=== PATIENT | female | born 1980 | race Caucasian/White ===

== ENCOUNTER 2018-05-28 17:41 | Emergency (ER) | payer MEDICAID ==
[~2018-05-28] VITALS: Ht 165.1 cm; Wt 50.8 kg
[~2018-05-28 17:41] MED LIST: AMIT50TA3 PO; ASP325T PO; ASPI-266 PO; CARI350T PO; CLON1TAB3 PO; CLPD75T PO; CYCL10TA9 PO; DIVA500T PO; DULO20CA PO; FAMO20TA5 PO; LANS15CA3 PO; METO25TA PO; OXC10TCR PO; OXYC-309 PO; OXYC10TA7 PO; OXYC40TA49 PO; SIMV5TAB6 PO
--- OUTSIDE RECORDS SUMMARY | 2018-05-28 17:44 | XMS REPORT | Clinical Summary ---
Author Author [facility] Organization [facility] Address Unknown Phone Unavailable Care Team Providers Care Manager Sound Name Role Phone Rylee Jacome RN Unavailable Unavailable Tejal Mccracken MD Unavailable Crow Rojo MD Unavailable Tejal Mccracken MD PCP Rebeca Muller DO Unavailable Gladys Bautista DO Unavailable Reggie Mike MD Unavailable Duc Barger MD Unavailable Dasia Hurley DO Unavailable Tejal Mccracken MD 100 Source Comments Some departments are not documenting in the electronic medical record. If you do not see the information that you expected, contact Release of Information in the Health Information Management department at [phone] for further assistance in locating additional records.[facility] Allergies Comments Active Allergy Reactions Severity Noted Date Tramadol SEIZURES 12/26/2013 Acetaminophen RASH 10/25/2012 Medications End Date Status Medication Sig Dispensed Refills Start Date Active lansoprazole DR Take 1 Cap by 60 Cap 3 (PREVACID) 30 mg PO mouth twice 1 capsule daily. Active Aspirin 81 mg PO Tab Take 81 mg by 0 mouth daily. Active ACETAMINOPHEN/DIPHENHYDRA Take 1 tablet 0 MINE (TYLENOL PM PO) by mouth three times daily as needed. Active nitroglycerin (NITROSTAT) Take one 25 Tab 1 0.4 mg tabletIndications: tablet under 6 Prinzmetal angina (HCC) tongue as directed for chest pain. Active atorvastatin (LIPITOR) 40 Take 1 Tab by 90 Tab 1 mg tabletIndications: mouth daily. 6 Hyperlipidemia, unspecified hyperlipidemia type Active amLODIPine (NORVASC) 5 mg Take 1.5 Tabs 135 Tab 3 tablet by mouth 7 daily. Active tiZANidine (ZANAFLEX) 4 Take 1 tablet 90 tablet 3 mg tablet by mouth 7 three times daily as needed. Active prazosin (MINIPRESS) 2 mg Take 1 tab 30 capsule 0 capsule QHS for 8 nightmares, must make appointment for additional refills Active mirtazapine (REMERON) 15 1 tab QHS for 30 tablet 0 mg tablet sleep, must 8 make appointment for additional refills Active oxyCODONE (ROXICODONE, Take 1-2 30 tablet 0 OXY-IR) 5 mg tablet tablets by 8 mouth every 4 hours as needed for Pain Active duloxetine DR (CYMBALTA) TAKE 3 90 capsule 0 30 mg capsule CAPSULES BY 8 MOUTH DAILY Active pregabalin (LYRICA) 75 mg Take 1-2 120 capsule 5 capsule capsules by 8 mouth three times daily. Active methocarbamol (ROBAXIN) TAKE 1-2 540 tablet 4 750 mg tablet TABLETS BY 9 MOUTH THREE TIMES DAILY NEEDED FOR SPASMS Active Problems Problem Noted Date Elbow swelling 02/18/2016 Moderate episode of recurrent major depressive disorder 02/09/2016 Generalized anxiety disorder 02/09/2016 Irregular pigmentation of skin 06/07/2015 Essential hypertension 03/10/2015 Skin lesion 03/10/2015 Need for influenza vaccination 03/10/2015 Hx of bipolar disorder 01/01/2015 Overview: Type II PTSD (post-traumatic stress disorder) 01/01/2015 History of [place] (myocardial infarction) 11/25/2014 Overview: 2004 Fibromyalgia 04/15/2014 HTN (hypertension) 01/11/2011 Tobacco abuse 01/11/2011 CAD (coronary artery disease) 12/11/2010 Overview: A. 12/15/2004 LHC at [facility] EF 55%, LAD 90%, no obstructive disease in the Circ or RCA. B. 12/15/2004 s/p PCI and stent to LAD with 3.0 mm Taxus ADRIANE. C. 12/10/2010 LHC at [facility] when admitted with CP and mildly elevated troponin, EF 55%, LM nl, LAD with patent stent, D1 with 50% due to stent, Circ nl, RCA small and non-dominant and normal. D. 12/12/2013 Echo EF of 55 percent. Diastolic function was normal. RV size and function was normal. Valvular structures were all normal. Her peak pulmonary pressure was 23 mmHg. E. 12/12/2013 MPI EF of 65 percent. The perfusion pattern was normal. There was no evidence of ischemia. G. 12/27/2013 LHC at [facility] in [facility]. EF 60%, LM nl, LAD mid 30%, patent stent, Circumflex dominant and normal, RCA normal. Adjustment reaction 12/11/2010 Major depressive disorder, recurrent episode, in partial remission 2010 Anxiety 12/11/2010 Hyperlipidemia 12/11/2010 Overview: A. 12/11/2010 TC 90, TG 61, HDL 31, LDL 48. Resolved Problems Problem Noted Date Resolved Date Chest pain 01/11/2011 04/27/2017 Overview: A. 12/10/2010 minimally elevated troponin, [facility] without obstructive disease. B. 12/10/2010 CTA of chest no aneurysm or PE. Findings of airway disease. C. 12/10/2010 treated empirically with NSAID and PPI. Encounters Care Team Description Date Type Specialty Neo Tovra MD 04/13/2018 Refill Anesthesia Pain from Last 3 Months Immunizations Name Dates Previously Given Next Due Flu Vaccine 02/18/2016 Quadrivalent=>3 Yo (Preservative Free) Flu Vaccine Trivalent=>3 03/10/2015, 12/26/2013 Yo (Preservative Free) Family History Medical History Relation Name Comments Melanoma Father Cancer Mother Heart Disease Mother Hypertension Mother Relation Name Status Comments Father Mother Social History Date Tobacco Use Types Packs/Day Years Used Quit: 12/22/2013 Former Smoker Cigarettes 1 20 Smokeless Tobacco: Never Used Alcohol Use Drinks/Week oz/Week Comments No 0.0 Sex Assigned at Date Recorded Not on file Industry Job Start Date Occupation Not on file Not on file Not on file Travel End Travel History Travel Start No recent travel history available. Last Filed Vital Signs Time Taken Vital Sign Reading 08/30/2017 12:28 PM CDT Blood Pressure 139/90 08/30/2017 12:28 PM CDT Pulse 70 08/30/2017 12:28 PM CDT Temperature 36.9 C (98.4 F) 01/08/2017 8:28 AM CDT Respiratory Rate 16 08/30/2017 12:28 PM CDT Oxygen Saturation 98% - Inhaled Oxygen - Concentration 08/30/2017 12:28 PM CDT Weight 51.7 kg (114 lb) 08/30/2017 12:28 PM CDT Height 165.1 cm (5' 5") 08/30/2017 12:28 PM CDT Body Mass Index 18.97 Plan of Treatment Health Maintenance Due Date Last Done Comments HIV SCREENING 1993 DTAP/TDAP VACCINES ( - 1996 Tdap) PHYSICAL (COMPREHENSIVE) 02/17/2017 02/18/2016, 12/26/2013 (Previously EXAM completed) INFLUENZA VACCINE 11/07/2017 02/18/2016, 02/18/2016, 03/10/2015, Additional history exists Results Not on filefrom Last 3 Months Insurance Payer Benefit Subscriber ID Type Phone Address Plan / Group [facility] MEDICAID [facility] xxxxxxxxxxx Medicaid [employer] [place] [place] Advance Directives Patient has advance care planning documents, and code status on file. For more information, please contact: [facility] [address] [place] [address] Date Inactivated Comments Code Status Date Activated 04/27/2017 7:31 PM Full Code 04/25/2017 9:16 PM Provider has discussed Code Status Yes w/Patient or Family? 12/11/2010 4:33 PM Full Code 12/10/2010 6:16 AM Provider has discussed Code Status Yes w/Patient or Family?
--- OUTSIDE RECORDS SUMMARY | 2018-05-28 17:44 | XMS REPORT | Encounter Summary ---
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 Name Role Phone Rylee Jacome RN Unavailable Unavailable eTjal Mccracken MD Unavailable Crow Rojo MD Unavailable Tejal Mccracken MD PCP Rebeca Muller DO Unavailable Gladys Bautista DO Unavailable Reggie Mike MD Unavailable Duc Barger MD Unavailable Dasia Hurley DO Unavailable Tejal Mccracken MD 100 Reason for Visit * Reason Comments Medication Refill Encounter Details Care Team Description Date Type Department Neo Tovar MD [address] [place] [address] 04/13/2018 Refill [facility] [address] [employer], [place] [address] Social History Date Tobacco Use Types Packs/Day Years Used Quit: 12/22/2013 Former Smoker Cigarettes 1 20 Smokeless Tobacco: Never Used Alcohol Use Drinks/Week oz/Week Comments No 0.0 Sex Assigned at Date Recorded Not on file Industry Job Start Date Occupation Not on file Not on file Not on file Travel End Travel History Travel Start No recent travel history available. as of this encounter Functional Status Date of Assessment Functional Status Response 08/30/2017 Does the patient have a hearing impairment: No 08/30/2017 Does the patient have a visual impairment: No 08/30/2017 Does the patient have impaired ambulation: No 08/30/2017 Does the patient have an activity of daily living No (ADL) impairment: 08/30/2017 Does the patient have an instrumental activity of No daily living (IADL) impairment: Date of Assessment Cognitive Status Response 08/30/2017 Does the patient have a cognitive impairment: No as of this encounter Plan of Treatment Not on fileas of this encounter Visit Diagnoses Not on filein this encounter
--- OUTSIDE RECORDS SUMMARY | 2018-05-28 17:45 | XMS REPORT | Continuity of Care Document ---
Author Author [facility] Organization [facility] Address Unknown Phone Unavailable Allergies Active Description Code Type Severity Reaction Onset Reported/Identified Relationship to Patient Clinical Status Yes acetaminophen [id number] Drug Allergy Unknown N/A 12/26/2013 Yes tramadol [id number] Drug Allergy Severe SEIZURE 12/26/2013 Medications There is no data. Problems There is no data. Procedures There is no data. Results There is no data. Encounters ACCT No. Visit Date/Time Discharge Status Pt. Type Provider Facility Loc./Unit Complaint [id number] 12/26/2013 20:38:00 12/27/2013 18:36:00 DIS Outpatient [id number] 05/28/2018 17:42:00 ACT Emergency MONALISA CIFUENTES, JANNIE Shi [facility] ER GALLBLADDER PAIN [id number] 05/28/2018 11:00:00 [facility]
--- NOTE | 2018-05-28 19:18 | NUR ---
ASSUMED CARE OF PT @ THIS TIME. PT AMB TO ROOM #5 W/O DIFFICULTY. A&OX4. PT NOTED TO BE TEARFUL AND GARDING IN PAIN. REPORTS UPPER RT QUADRANT ABD PAIN WITH NAUSEA. REPORTS SYMPTOMS HAVE BEEN INTERMITTENTLY PRESENT FOR APPROX X3 WKS. REPORTS TO BE SENT BY PCP, DR. FLOREZ, AFTER ULTRASOUND PREFORMED IN OFFICE ON THIS DAY.
[2018-05-28 19:32] LABS: BASOPHILS % (AUTO) 0 % (0-10); EOSINOPHILS % (AUTO) 0 % (0-10); HEMATOCRIT 36 % (35-52); LYMPHOCYTES % (AUTO) 12 % (12-44); MEAN CORPUSCULAR HEMOGLOBIN 32 PG (25-34); MEAN CORPUSCULAR HGB CONC 33 G/DL (32-36); MEAN CORPUSCULAR VOLUME 98 FL (80-99); MEAN PLATELET VOLUME 9.4 FL (7.4-10.4); MONOCYTES # (AUTO) 0.6 X 10^3 (0.0-1.0); MONOCYTES % (AUTO) 7 % (0-12); NEUTROPHILS # (AUTO) 7.3 X 10^3 (1.8-7.8); NEUTROPHILS % (AUTO) 81 % (42-75); PLATELET COUNT 354 10^3/uL (130-400); RED CELL DISTRIBUTION WIDTH 13.7 % (10.0-14.5); WHITE BLOOD COUNT 8.9 10^3/uL (4.3-11.0)
[2018-05-28 19:55] LABS: ALANINE AMINOTRANSFERASE 167 U/L (0-55); ALBUMIN 4.2 GM/DL (3.2-4.5); ALKALINE PHOSPHATASE 440 U/L (40-136); BILIRUBIN,TOTAL 0.2 MG/DL (0.1-1.0); BUN/CREATININE RATIO 13; CALCIUM 9.1 MG/DL (8.5-10.1); CARBON DIOXIDE 24 MMOL/L (21-32); CHLORIDE 102 MMOL/L (98-107); GFR ESTIMATED > 60; GLUCOSE 138 MG/DL (70-105); LIPASE 59 U/L (8-78); POTASSIUM 3.8 MMOL/L (3.6-5.0); SODIUM 137 MMOL/L (135-145); TOTAL PROTEIN 7.9 GM/DL (6.4-8.2)
[2018-05-28] MEDS ORDERED: fentaNYL INJECTION 100 MCG/2 ML AMP IVP ONE (20:00)
[2018-05-28] MEDS ORDERED: NS IV 1000 ML 1,000 ML IV SCH (20:00)
--- NOTE | 2018-05-28 20:37 | ED Abdominal Pain ---
General Chief Complaint: Abdominal/GI Problems Stated Complaint: GALLBLADDER PAIN Nursing Triage Note: pt arrived POV with c/o RUQ pain. She was sent here by her doctor because her US of her gallbladder was abnormal. She is in a lot of pain and has been dealing with the pain by smoking marijuana because the medicine isn't helping. Pt is in no apparent distress but does appear uncomfortable. Sepsis Screen: No Definite Risk Source of Information: Patient Exam Limitations: No Limitations History of Present Illness Date Seen by Provider: May 28, 2018 Time Seen by Provider: 20:00 Initial Comments 37-year-old female who presents to the emergency room with complaints of right upper quadrant abdominal pain for the past 3 weeks. She was seen and evaluated at [facility] and had outpatient labs and an ultrasound of her gallbladder today. Allergies and Home Medications Allergies Coded Allergies: tramadol (Unverified Allergy, Severe, SEIZURE, 12/26/13) acetaminophen (Unverified Allergy, Unknown, 12/26/13) Home Medications Aspirin 81 Mg Tablet.dr, 81 MG PO DAILY Prescribed by: MILADY RODRIGUEZ on 12/27/131707 Carisoprodol 350 Mg Tablet, 350 MG PO DAILY, (Reported) Clonazepam 1 Mg Tablet, 1 EACH PO TID, (Reported) Clopidogrel 75 Mg Tablet, 1 EACH PO DAILY, (Reported) Famotidine 20 Mg Tablet, 1 EACH PO BID Prescribed by: MILADY RODRIGUEZ on 12/27/131707 Lansoprazole 15 Mg Capsule.dr, 15 MG PO BID PRN for DYSPEPSIA Prescribed by: MILADY RODRIGUEZ on 12/27/131707 Levofloxacin 750 Mg Tablet, 750 MG PO DAILY Prescribed by: DEVYN CORCORAN on 05/28/182042 Metoprolol Succinate 25 Mg Tab.sr.24h, 25 MG PO BID, (Reported) Simvastatin 5 Mg Tablet, 5 MG PO HS, (Reported) Past Cdbgqly-Uccjjc-Uypxcy Hx Patient Social History Alcohol Use: Occasionally Uses Number of Drinks Today: 0 Recreational Drug Use: Yes (THC) Drug of Choice: VAPES CAROLANN: 3MG. Smoking Status: Light Tobacco Smoker Type Used: Electronic/Vapor 2nd Hand Smoke Exposure: No Recent Foreign Travel: No Contact w/Someone Who Travel: No Recent Infectious Disease Expo: No Immunizations Up To Date Tetanus Booster (TDap): Unknown Date of Influenza Vaccine: Dec 26, 2013 Seasonal Allergies Seasonal Allergies: No Past Medical History Surgeries: Yes (appy, hemmroidectomy, DNC X2, CARDIAC CATH ) Appendectomy Respiratory: Yes Chronic Bronchitis Cardiac: Yes (STENT PLACED X1) Neurological: No (last seizure jan 2013) Reproductive Disorders: Yes (ENDOMETROSIS) Female Reproductive Disorders: Endometriosis 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 Sexually Transmitted Disease: No HIV/AIDS: No Gastrointestinal: Yes (APPENDIX REMOVED) Gastroesophageal Reflux, Esophagitis Musculoskeletal: No Arthritis, Chronic Back Pain Endocrine: Yes (hypoglycemia, ) Cancer: Yes Cervical Psychosocial: Yes Anxiety, Bipolar, Personality Disorder Integumentary: No Blood Disorders: No Family Medical History Arthritis 19 MOTHER Asthma 19 MOTHER Cardiovascular disease 19 MOTHER Diabetes mellitus 19 MOTHER Headache disorder 19 FATHER 19 MOTHER G8 SISTER Hypertension 19 MOTHER Respiratory disorder 19 MOTHER No Family History of: AIDS Abdominal aortic aneurysm Hipolito's disease Alcoholism Alzheimer's disease Aphasia Cancer of mouth Cataracts Colon cancer Completed stroke Congenital disease Congenital heart disease Coronary thrombosis Cystic fibrosis Deafness or hearing loss Dementia Drug abuse Dysphasia Fibrocystic disease of breast Gastroenteritis Glaucoma Hypercholesterolemia Infertility Kidney disease Myocardial infarction Neoplasm Not obtainable due to adoption Osteoporosis Parkinson's disease Prostate cancer Psychosocial problem Seizure disorder Severe allergy Thyroid disease Tuberculosis Visual disorder Physical Exam Vital Signs Vital Signs - First Documented 05/28/18 17:45 Temp 98.1 Pulse 86 B/P (MAP) 128/56 (80) O2 Delivery Room Air Capillary Refill : Less Than 3 Seconds Height/Weight/BMI Height: 5'5.00" Weight: 112lbs. 2.0oz. 50.874885qk; BMI Method:Stated Progress/Results/Core Measures Results/Orders Lab Results Laboratory Tests Test 05/28/18 19:25 05/28/18 20:40 Range/Units White Blood Count 8.9 4.3-11.0 10^3/uL Red Blood Count 3.71 L 4.35-5.85 10^6/uL Hemoglobin 12.0 11.5-16.0 G/DL Hematocrit 36 35-52 % Mean Corpuscular Volume 98 80-99 FL Mean Corpuscular Hemoglobin 32 25-34 PG Mean Corpuscular Hemoglobin Concent 33 32-36 G/DL Red Cell Distribution Width 13.7 10.0-14.5 % Platelet Count 354 130-400 10^3/uL Mean Platelet Volume 9.4 7.4-10.4 FL Neutrophils (%) (Auto) 81 H 42-75 % Lymphocytes (%) (Auto) 12 12-44 % Monocytes (%) (Auto) 7 0-12 % Eosinophils (%) (Auto) 0 0-10 % Basophils (%) (Auto) 0 0-10 % Neutrophils # (Auto) 7.3 1.8-7.8 X 10^3 Lymphocytes # (Auto) 1.0 1.0-4.0 X 10^3 Monocytes # (Auto) 0.6 0.0-1.0 X 10^3 Eosinophils # (Auto) 0.0 0.0-0.3 10^3/uL Basophils # (Auto) 0.0 0.0-0.1 10^3/uL Sodium Level 137 135-145 MMOL/L Potassium Level 3.8 3.6-5.0 MMOL/L Chloride Level 102 98-107 MMOL/L Carbon Dioxide Level 24 21-32 MMOL/L Anion Gap 11 5-14 MMOL/L Blood Urea Nitrogen 9 7-18 MG/DL Creatinine 0.70 0.60-1.30 MG/DL Estimat Glomerular Filtration Rate > 60 BUN/Creatinine Ratio 13 Glucose Level 138 H 70-105 MG/DL Calcium Level 9.1 8.5-10.1 MG/DL Corrected Calcium 8.9 8.5-10.1 MG/DL Total Bilirubin 0.2 0.1-1.0 MG/DL Aspartate Amino Transf (AST/SGOT) 98 H 5-34 U/L Alanine Aminotransferase (ALT/SGPT) 167 H 0-55 U/L Alkaline Phosphatase 440 H 40-136 U/L Total Protein 7.9 6.4-8.2 GM/DL Albumin 4.2 3.2-4.5 GM/DL Lipase 59 8-78 U/L My Orders Orders - BERNOT,DEVYN Fentanyl Injection (Sublimaze Injection (05/28/18 20:00) Ns Iv 1000 Ml (Sodium Chloride 0.9%) (05/28/18 20:00) Rx-Hydrocodone/Apap 5-325 Mg (Rx-Vicodin (05/28/18 21:00) Rx-Ondansetron Po (Rx-Zofran Po) (05/28/18 20:46) Medications Given in ED Current Medications Medications Dose Ordered Sig/Feliz Route Start Time Stop Time Status Last Admin Dose Admin Acetaminophen/ Hydrocodone Bitart 1 ea Q4H PRN PO 05/28/18 21:00 05/28/18 20:55 1 EA Fentanyl Citrate 50 mcg ONCE ONCE IVP 05/28/18 20:00 05/28/18 20:01 DC 05/28/18 19:54 50 MCG Vital Signs/I&O 05/28/18 17:45 Temp 98.1 Pulse 86 B/P (MAP) 128/56 (80) O2 Delivery Room Air Blood Pressure Mean: 80 Departure Impression Primary Impression: Right upper quadrant abdominal pain Disposition: HOME, SELF-CARE Condition: Stable/Unchanged Departure-Patient Inst. Decision time for Depature: 20:37 Referrals: NO,LOCAL PHYSICIAN (PCP/Family) Primary Care Physician Patient Instructions: Acute Abdomen (Belly Pain), Adult (DC) Add. Discharge Instructions: Liquid diet until you follow up with Dr. Lindsey. Return back to the hospital tomorrow morning for an outpatient ultrasound of your gallbladder. After your ultrasound appointment go directly to Dr. Lindsey's office to be seen and evaluated. Take medications as directed. Return back to the emergency room for worsening symptoms or concerns as needed. All discharge instructions reviewed with patient and/or family. Voiced understanding. Scripts Levofloxacin (Levaquin) 750 Mg Tablet 750 MG PO DAILY for 4 Days, #4 TAB Prov: DEVYN CORCORAN 05/28/18 DEVYN CORCORAN May 28, 2018 20:37
[2018-05-28] MEDS ORDERED: LEVO750T9 PO (20:43)
[2018-05-28] MEDS ORDERED: RX-ONDANSETRON 4 MG ODT (ZOFRAN) PPK #4 PO STA (20:46)
[2018-05-28 20:48] LABS: CLARITY,URINE SLIGHTLY CLOUDY; COLOR,URINE YELLOW; GLUCOSE, URINE (UA) 1+ (NEGATIVE); KETONES,URINE NEGATIVE (NEGATIVE); LEUKOCYTE ESTERASE ,URINE 1+ (NEGATIVE); NITRITE,URINE NEGATIVE (NEGATIVE); PH,URINE 5 (5-9); PROTEIN,URINE 1+ (NEGATIVE); UROBILINOGEN,URINE NORMAL (NORMAL)
[2018-05-28 20:57] LABS: BACTERIA,URINE FEW /HPF; WBC,URINE 0-2 /HPF
[2018-05-28 20:58] LABS: BILIRUBIN,URINE 1+ (NEGATIVE)
[2018-05-28] MEDS ORDERED: RX-HYDROCODONE/APAP 5/325 MG #4 TAB PK PO PRN (21:00)
[2018-05-28 21:07] VITALS: BP 130/75
== END 2018-05-28 21:09 | disposition home or self-care (01) ==
LOC: EDUNIT# 17:41 → ER 17:42
DX: R10.11 Right upper quadrant pain (principal); K21.9 Gastro-esophageal reflux disease without esophagitis; F41.9 Anxiety disorder, unspecified; F31.9 Bipolar disorder, unspecified; F60.9 Personality disorder, unspecified; F17.290 Nicotine dependence, other tobacco product, uncomplicated; Z85.41 Personal history of malignant neoplasm of cervix uteri; Z82.49 Family history of ischemic heart disease and other diseases of the circulatory system; Z90.89 Acquired absence of other organs; Z87.09 Personal history of other diseases of the respiratory system; Z87.448 Personal history of other diseases of urinary system; Z90.710 Acquired absence of both cervix and uterus; Z87.19 Personal history of other diseases of the digestive system; Z90.49 Acquired absence of other specified parts of digestive tract; Z88.6 Allergy status to analgesic agent; Z79.82 Long term (current) use of aspirin; Z79.02 Long term (current) use of antithrombotics/antiplatelets
CPT/HCPCS: 36415; 80053; 81000; 83690; 85025; 96361; 96374

== ENCOUNTER → 2018-05-29 | Outpatient (CLI) | payer MEDICAID ==
--- NOTE | 2018-05-29 09:36 | Diagnostic Imaging Report ---
PROCEDURE: US Gallbladder. TECHNIQUE: Multiple real-time grayscale images were obtained over the right upper quadrant in various projections. INDICATION: Right upper quadrant pain. FINDINGS: Liver is enlarged at 19 cm. No discrete liver mass is identified. Portal vein is patent and shows normal direction of flow. Gallbladder is without stones or sludge. No wall thickening or biliary ductal dilatation is seen. There is trace fluid adjacent to the gallbladder. Pancreas and right kidney are unremarkable. IMPRESSION: 1. Mild hepatomegaly. 2. No evidence of cholelithiasis or acute cholecystitis. There is trace fluid adjacent to the gallbladder. Dictated by: Dictated on workstation # [id number]
== END ==
LOC: RAD 08:13
PROVIDERS: ATTEND Nurse Practitioner
DX: R16.0 Hepatomegaly, not elsewhere classified (principal); R10.11 Right upper quadrant pain
CPT/HCPCS: 76705

== ENCOUNTER → 2018-05-30 | Outpatient (CLI) | payer MEDICAID ==
[~2018-05-30] MED LIST changes: +CATHETER FLUSH 10 ML SYR IV PRN; +LEVO750T9 PO
--- NOTE | 2018-05-30 15:43 | Diagnostic Imaging Report ---
HEPATOBILIARY SCAN DATE: January 27, 2019. INDICATION: 37-year-old female, epigastric pain. COMPARISON: Right upper quadrant ultrasound from 05/30/2018. PROCEDURE: 5.14 mCi of Tc-99m Choletec was administered intravenously and serial anterior planar images over the liver and upper abdomen were obtained. FINDINGS: There is homogenous activity throughout the liver with good clearance of background activity. This indicates good hepatocellular function. Biliary tree activity is seen at 2 minutes. The gallbladder is seen at 8 minutes. There is no enterogastric reflux. The biliary tree is patent. There is no evidence of acute cholecystitis. Ensure was administered for calculation of gallbladder ejection fraction. Gallbladder ejection fraction was calculated to be 79%. IMPRESSION: Normal hepatobiliary scan. No evidence of acute or chronic cholecystitis. Dictated by: Dictated on workstation # [id number]
== END ==
LOC: CARD 10:38
PROVIDERS: ATTEND Surgery
DX: R10.13 Epigastric pain (principal)
CPT/HCPCS: 78227

== ENCOUNTER → 2018-05-31 | Outpatient (CLI) | payer MEDICAID ==
[~2018-05-31] MED LIST changes: +ACHD5005 PO; -CATHETER FLUSH 10 ML SYR IV PRN; +METH750T3 PO
== END ==
LOC: PREOP 12:38
PROVIDERS: ATTEND Surgery
DX: Z01.818 Encounter for other preprocedural examination (principal)

== ENCOUNTER 2018-06-03 08:22 | Day surgery (SDC) | payer MEDICAID ==
[~2018-06-03] VITALS: Ht 165.1 cm; Wt 48.7 kg
[~2018-06-03 08:22] MED LIST changes: -ACHD5005 PO; -METH750T3 PO
[2018-06-03] MEDS: LACTATED RINGERS 1,000 ML IV PRN ×2 (08:35→10:47)
[2018-06-03 08:45] VITALS: BP 117/71
[2018-06-03] MEDS ORDERED: ceFAZolin INJECTION 1,000 MG in WATER (STERILE) FOR INJECTION 10 ML IV ONE (08:45)
[2018-06-03] MEDS ORDERED: METH750T3 PO (08:57)
[2018-06-03] MEDS ORDERED: IOPAMIDOL 61% 30 ML (ISOVUE 300) VIAL IV ONE (09:28)
[2018-06-03] MEDS ORDERED: BUP/EPI 0.5% 1:200,000 (SENSORCAINE) 30 ML VIAL ONE (09:29)
[2018-06-03] MEDS ORDERED: LIDOCAINE 1% INJ 20 ML 20 ML VIAL ONE (09:29)
[2018-06-03] MEDS ORDERED: SEVOFLURANE (ULTANE) 15 ML INHAL SOLN ONE ×2 (09:48→11:06)
[2018-06-03] MEDS ORDERED: proPOfol 200 MG/20 ML (DIPRIVAN) VIAL IV ONE (09:48)
[2018-06-03] MEDS ORDERED: NEOSTIGMINE 1 MG/ML 5 ML SYRINGE ONE (09:48)
[2018-06-03] MEDS ORDERED: ONDANSETRON 4 MG/2 ML (SDV) Z0FRAN ONE (09:48)
[2018-06-03] MEDS ORDERED: LIDOCAINE PF 2% 5 ML (XYLOCAINE) VIAL ONE (09:48)
[2018-06-03] MEDS ORDERED: GLYCOPYRROLATE 0.2 MG/ML (ROBINUL) 2 ML VIAL ONE ×2 (09:48→11:31)
[2018-06-03] MEDS ORDERED: ROCURONIUM 10 MG/ML 5 ML SYRINGE IV ONE (09:48)
[2018-06-03] MEDS ORDERED: DEXAMETHASONE 10 MG/ML (DECADRON) 1 ML VIAL ONE (09:48)
[2018-06-03] MEDS ORDERED: MIDAZOLAM 2 MG/2 ML (VERSED) VIAL ONE (09:49)
[2018-06-03] MEDS ORDERED: fentaNYL INJECTION 250 MCG/5 ML AMP ONE (09:49)
--- NOTE | 2018-06-03 09:55 | Progress Note-Pre Operative ---
Pre-Operative Progress Note H&P Reviewed The H&P was reviewed, patient examined and no changes noted. Date Seen by Provider: Jun 03, 2018 Time Seen by Provider: 09:55 Date H&P Reviewed: Jun 03, 2018 Time H&P Reviewed: 09:55 Pre-Operative Diagnosis: ruq abdominal pain, biliary dyskinesia YULIYA HUGHES DO Jun 03, 2018 09:55
[2018-06-03] MEDS ORDERED: LACTATED RINGERS 1,000 ML IV ONE (11:06)
[2018-06-03] MEDS ORDERED: ACHD5005 PO (11:12)
--- NOTE | 2018-06-03 11:14 | Discharge Inst-Simple/Standard ---
Discharge Inst-Standard Discharge Medications New, Converted or Re-Newed RX: RX on Chart Patient Instructions/Follow Up Plan of Care/Instructions/FU: 2 weeks César Activity as Tolerated: No Discharge Diet: Regular Diet Other Inst to Patient Follow up Appt: Make appointment for 2 weeks. Instructions: No lifting greater than 10 pounds. No strenuous activity. May shower in 24 hours, no tub bath or soaking. Use incentive spirometer at home as directed. No Smoking Skin/Wound Care: You have special glue over incisions it will fall off on its own. Symptoms to Report: Appetite Changes, Extremity Discoloration, Numbness/Tingling, Swelling Increased , Bleeding Excessive, Eyesight Changes, Pain Increased, Urine Color Change, Constipation(Persistent), Fever over 101 degree F, Pain/Pressure in chest, Urinating Difficulty, Cough Up/Vomit Blood, Heart Beat Irreg/Pounding, Pain/ Pressure in jaw, Vaginal Bleeding Increase, Cramps in feet or legs, Lightheadedness, Pain/Pressure in shoulder, Diarrhea(Persistent), Memory Changes Suddenly, Questions/Concerns, Weight gain consecutive days, Dizziness/ Fainting, Nausea/Vomiting, Shortness of Breath, Weight gain over 2 pounds. If eyes or skin turn yellow notify physician. If questions or concerns contact your physician Or seek help at emergency department. YULIYA HUGHES DO Jun 03, 2018 11:14
[2018-06-03] MEDS ORDERED: diphenhydrAMINE 50 MG/ML INJ (BENADRYL) ONE (11:16)
[2018-06-03] MEDS ORDERED: morphine INJ 10 MG/ML 1ML (SYR OR VIAL) IVP ONE (11:30)
[2018-06-03] MEDS ORDERED: ONDANSETRON 4 MG/2 ML (SDV) Z0FRAN IVP PRN (11:30)
[2018-06-03] MEDS ORDERED: HYDROmorphone 2 MG/ML VIAL (DILAUDID) IV ONE (11:30)
[2018-06-03 12:30] VITALS: BP 130/73
--- NOTE | 2018-06-03 12:48 | NUR ---
THIS RN SPOKE WITH PATIENT ABOUT VICODIN PRESCRIPTION RECEIVED FROM ED DUE TO ACETAMINOPHEN ALLERGY. PATIENT STATES SHE IS ABLE TO TAKE SHE JUST TAKES A BENADRYL WITH IT. THIS RN ASKED PATIENT IF SHE HAS TAKEN HYDROCODONE AND SHE STATED YES SHE TAKES A BENADRYL PILL WITH WITH NO ISSUES.
[2018-06-03] MEDS ORDERED: HYDROcodone/APAP 5 MG/325 MG (LORTAB) TAB ONE (12:56)
[2018-06-03] MEDS ORDERED: diphenhydrAMINE 25 MG TAB (BENADRYL) PO ONE (12:57)
--- NOTE | 2018-06-03 12:58 | Progress Note-Post Operative ---
Post-Operative Progess Note Surgeon (s)/Manager It Security (s) Surgeon YULIYA HUGHES DO Manager It Security: Dr. Isaac Pre-Operative Diagnosis ruq abdominal pain, biliary dyskinesia Post-Operative Diagnosis same Procedure & Operative Findings Date of Procedure 06/03/18 Procedure Performed/Findings lap kassidy c ioc Anesthesia Type gen Estimated Blood Loss Estimated blood loss (mL): min Specimens/Packing Specimens Removed gallbladder YULIYA HUGHES DO Jun 03, 2018 12:58
[2018-06-03 13:00] VITALS: BP 140/83
[2018-06-03] MEDS ORDERED: HYDROcodone/APAP 5 MG/325 MG (LORTAB) TAB PO ONE (13:00)
[2018-06-03] MEDS ORDERED: diphenhydrAMINE 25 MG TAB (BENADRYL) PO NR (13:00)
--- NOTE | 2018-06-03 13:05 | NUR ---
RECEIVED VERBAL ORDER FROM DR. HUGHES TO GIVE 12.5MG BENADRYL AND 2 LORTAB .
[2018-06-03 13:09] VITALS: BP 140/83
[2018-06-03 13:30] VITALS: BP 137/79
--- NOTE | 2018-06-03 18:43 | OPERATIVE REPORT ---
DATE OF SERVICE: 06/03/2018 PREOPERATIVE DIAGNOSES: Right upper quadrant abdominal pain, biliary dyskinesia. POSTOPERATIVE DIAGNOSES: Right upper quadrant abdominal pain, biliary dyskinesia. PROCEDURE PERFORMED: Laparoscopic cholecystectomy with intraoperative cholangiogram. SURGEON: Mikal Lindsey DO. MOTORCYCLE TESTER: Ruben Isaac DO, assisted in retraction, dissection and closure. ANESTHESIA: General. ESTIMATED BLOOD LOSS: Minimal. COMPLICATIONS: None. INDICATIONS: The patient is a 37-year-old female who has been having symptoms of gallbladder disease. She has a normal gallbladder on ultrasound. She had a HIDA scan with ejection fraction of 79%. The patient was discussed risks and benefits of having laparoscopic cholecystectomy and she understands risks and benefits and wished to proceed with procedure. Consent was signed in the chart. DESCRIPTION OF PROCEDURE: The patient was taken to the operating suite. She was prepped and draped in sterile fashion. Surgical pause was performed. Local anesthetic was infiltrated before incisions. Incision was made just above the umbilicus. Cautery was used to dissect down to the fascia, which was then scored, grasped with Kochers and the abdomen was then entered. A #0 Vicryl was placed in a [id number] fashion for closure at the end. A balloon trocar was inserted in the abdomen and pneumoperitoneum was achieved. Under direct visualization of the laparoscope, a 5 mm trocar was placed in the subxiphoid region and two 5 mm trocars were placed in the right upper quadrant. Gallbladder was grasped, elevated. There were adhesions in the duodenum stuck up to the gallbladder. These were bluntly taken down and also with some use of cautery. The cystic duct and cystic artery were dissected out. Clips were placed on the proximal and distal portion of the cystic artery and a clip was placed on the distal portion of the cystic duct. The cystic duct was partially transected. Arrow catheter was inserted into the duct and cholangiogram was then performed. The cholangiogram showed a slight filling defect superior to the balloon was present. I felt this was more of an air bubble rather than a stone and the contrast made its way into the duodenum. The catheter was removed and clips were placed on the proximal portion of the cystic duct and the duct and artery were then transected. Hook cautery was used to dissect the gallbladder from the gallbladder fossa achieving hemostasis. Once removed, it was placed in an Endobag and removed through the 12 mm trocar site. The abdomen was then irrigated and suctioned. Hemostasis had been achieved. Abdomen was inspected noting no other pathology except for a small umbilical hernia. The abdomen was then desufflated, the trocars were removed. The #0 Vicryl placed in a [id number] fashion was then closed and the skin was then closed using 4-0 Monocryl in a subcuticular fashion. The area was then washed and dried and Skin Affix was placed over the incisions. The patient tolerated procedure well without complications. She was taken to recovery room in stable condition. Job ID: [id number] DocumentID: [id number] Dictated Date: 06/03/2018 13:03:45 Mri Supervisor Date: 06/03/2018 18:42:30 Dictated By: DO SERAFIN OLIVEROS
--- NOTE | 2018-06-03 19:44 | Diagnostic Imaging Report ---
INDICATION: Gallbladder disease. FINDINGS: Intraoperative cholangiogram demonstrates normal caliber of the intrahepatic and extrahepatic biliary ducts. No intrinsic or extrinsic filling defects are appreciated. There is free spill of contrast into the duodenum. There is no pathological extravasation of contrast. IMPRESSION: Unremarkable intraoperative cholangiogram status post cholecystectomy. Please correlate with the formal operative report. Dictated by: Dictated on workstation # [id number]
== END 2018-06-03 13:47 | disposition home or self-care (01) ==
LOC: SDC 08:22
PROVIDERS: ATTEND Surgery
DX: K81.1 Chronic cholecystitis (principal); D13.5 Benign neoplasm of extrahepatic bile ducts; K82.8 Other specified diseases of gallbladder; Z87.81 Personal history of (healed) traumatic fracture; Z95.5 Presence of coronary angioplasty implant and graft; Z79.82 Long term (current) use of aspirin; Z79.899 Other long term (current) drug therapy
CPT/HCPCS: 87081

== ENCOUNTER 2018-10-26 21:33 | Emergency (ER) | payer MEDICAID | END 2018-10-27 01:43 | LOC: ER FS 21:33 ==

== ENCOUNTER → 2019-09-29 | Outpatient (CLI) | payer MEDICAID ==
[~2019-09-29] MED LIST changes: +ACHD5005 PO; +METH750T3 PO
[2019-09-29 12:37] LABS: HEMATOCRIT 40 % (35-52); HEMOGLOBIN 13.7 G/DL (11.5-16.0); MEAN CORPUSCULAR HEMOGLOBIN 34 PG (25-34); MEAN CORPUSCULAR HGB CONC 34 G/DL (32-36); MEAN CORPUSCULAR VOLUME 99 FL (80-99); WHITE BLOOD COUNT 8.6 10^3/uL (4.3-11.0)
[2019-09-29 12:38] LABS: BASOPHILS # (AUTO) 0.1 10^3/uL (0.0-0.1); BASOPHILS % (AUTO) 1 % (0-10); EOSINOPHILS # (AUTO) 0.1 10^3/uL (0.0-0.3); EOSINOPHILS % (AUTO) 1 % (0-10); LYMPHOCYTES # (AUTO) 3.1 X 10^3 (1.0-4.0); LYMPHOCYTES % (AUTO) 36 % (12-44); MEAN PLATELET VOLUME 10.4 FL (7.4-10.4); MONOCYTES # (AUTO) 0.4 X 10^3 (0.0-1.0); MONOCYTES % (AUTO) 5 % (0-12); NEUTROPHILS # (AUTO) 4.9 X 10^3 (1.8-7.8); NEUTROPHILS % (AUTO) 57 % (42-75); PLATELET COUNT 225 10^3/uL (130-400); RED CELL DISTRIBUTION WIDTH 13.3 % (10.0-14.5)
[2019-09-29 12:44] LABS: ATYPICAL LYMPHOCYTES 6 %; BAND NEUTROPHILS 4 %; BASOPHILS % (MANUAL) 0 %; EOSINOPHILS % (MANUAL) 2 %; LYMPHOCYTES % (MANUAL) 31 %; MONOCYTES % (MANUAL) 3 %; NEUTROPHILS % (MANUAL) 54 %; RBC MORPH NORMAL
[2019-09-29 12:53] LABS: BUN/CREATININE RATIO 11; CALCIUM 9.9 MG/DL (8.5-10.1); CARBON DIOXIDE 26 MMOL/L (21-32); CHLORIDE 100 MMOL/L (98-107); CREATININE SERUM 1.17 MG/DL (0.60-1.30); GFR ESTIMATED 51; GLUCOSE 92 MG/DL (70-105); MAGNESIUM 2.4 MG/DL (1.6-2.4); POTASSIUM 3.8 MMOL/L (3.6-5.0); SODIUM 140 MMOL/L (135-145)
[2019-09-29 12:54] LABS: ALANINE AMINOTRANSFERASE 61 U/L (0-55); ALBUMIN 5.1 GM/DL (3.2-4.5); ALKALINE PHOSPHATASE 87 U/L (40-136); BILIRUBIN,TOTAL 0.3 MG/DL (0.1-1.0); TOTAL PROTEIN 8.3 GM/DL (6.4-8.2)
[2019-09-29 15:45] LABS: FREE T4 (FREE THYROXINE) < 0.40 NG/DL (0.70-1.48)
== END ==
LOC: LAB FS 11:56
PROVIDERS: ATTEND Nurse Practitioner Family
DX: R25.2 Cramp and spasm (principal); R53.83 Other fatigue
CPT/HCPCS: 36415; 80053; 83735; 84439; 84443; 85007; 85027

== ENCOUNTER 2019-11-17 10:18 | Emergency (ER) | payer MEDICAID ==
[~2019-11-17] VITALS: Ht 165.1 cm; Wt 49.8 kg
--- NOTE | 2019-11-17 10:38 | ED Upper Extremity ---
General Chief Complaint: Upper Extremity Stated Complaint: LT ELBOW INJ Source: patient Exam Limitations: no limitations History of Present Illness Date Seen by Provider: Nov 17, 2019 Time Seen by Provider: 10:22 Initial Comments The patient is a pleasant 39-year-old female who presents for evaluation of a left elbow injury. She states that she was fishing yesterday and she slipped on a boat dock and injured the left elbow. She does not exactly recall what hap pened the elbow. She is having some discomfort with extending and flexing the elbow and states that it was difficult to sleep because of the pain. She drove herself to the emergency department today. She is alert and oriented 4, calm, and appears to be in no distress. She denies any other injuries and did not hit her head or lose consciousness. Onset: yesterday Severity: moderate Pain/Injury Location: left elbow Method of Injury: fell Modifying Factors: Improves With Movement (Makes pain worse) Allergies and Home Medications Allergies Coded Allergies: tramadol (Unverified Allergy, Severe, SEIZURE, 12/26/13) acetaminophen (Unverified Allergy, Unknown, 12/26/13) Home Medications Aspirin 81 Mg Tablet.dr, 81 MG PO DAILY Prescribed by: MILADY RODRIGUEZ on 12/27/13 1708 Famotidine 20 Mg Tablet, 1 EACH PO BID Prescribed by: MILADY RODRIGUEZ on 12/27/13 1708 Hydrocodone Bit/Acetaminophen 1 Tab Tab, 1-2 TAB PO Q6H PRN for PAIN-MODERATE Prescribed by: YULIYA HUGHES on 06/03/18 1112 Hydrocodone/Acetaminophen 1 Each Tablet, 1 EACH PO Q4H PRN for PAIN-MODERATE (5- 7) Prescribed by: DOLLY EVANS on 11/17/19 1121 Methocarbamol 750 Mg Tablet, 750 MG PO Q6-8HR, (Reported) Patient Home Medication List Home Medication List Reviewed: Yes Review of Systems Constitutional: no symptoms reported EENTM: no symptoms reported Respiratory: no symptoms reported Cardiovascular: no symptoms reported Gastrointestinal: no symptoms reported Genitourinary: no symptoms reported Musculoskeletal: joint pain (left elbow) Skin: no symptoms reported Psychiatric/Neurological: No Symptoms Reported All Other Systems Reviewed Negative Unless Noted: Yes Past Sjdiwnm-Fvpkzv-Tuhzyz Hx Past Med/Social Hx: Reviewed Nursing Past Med/Soc Hx Patient Social History Alcohol Use: Denies Use Number of Drinks Today: AA Alcohol Beverage of Choice: Beer Recreational Drug Use: No Drug of Choice: Marijuana Smoking Status: Former Smoker Type Used: Electronic/Vapor Former Smoker, Quit: Apr 02, 2018 2nd Hand Smoke Exposure: No Recent Foreign Travel: No Contact w/Someone Who Travel: No Recent Hopitalizations: No Physical Abuse: No Sexual Abuse: No Mistreated: No Fear: No Immunizations Up To Date Tetanus Booster (TDap): Unknown Date of Influenza Vaccine: Dec 26, 2013 Seasonal Allergies Seasonal Allergies: No Past Medical History Surgeries: Yes (appy, hemmroidectomy, DNC X2, CARDIAC CATH ) Appendectomy Respiratory: Yes Chronic Bronchitis Cardiac: Yes (STENT PLACED X1) Neurological: Yes (last seizure jan 2013) Reproductive Disorders: Yes (ENDOMETROSIS) Female Reproductive Disorders: Endometriosis 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 Sexually Transmitted Disease: No HIV/AIDS: No Gastrointestinal: Yes (APPENDIX REMOVED) Gastroesophageal Reflux, Esophagitis Musculoskeletal: No Arthritis, Chronic Back Pain Endocrine: Yes (hypoglycemia, ) Cancer: Yes Cervical Psychosocial: Yes Anxiety, Bipolar, Personality Disorder Integumentary: No Blood Disorders: No Family Medical History Arthritis 19 MOTHER Asthma 19 MOTHER Cardiovascular disease 19 MOTHER Diabetes mellitus 19 MOTHER Headache disorder 19 FATHER 19 MOTHER G8 SISTER Hypertension 19 MOTHER Respiratory disorder 19 MOTHER No Family History of: AIDS Abdominal aortic aneurysm Hipolito's disease Alcoholism Alzheimer's disease Aphasia Cancer of mouth Cataracts Colon cancer Completed stroke Congenital disease Congenital heart disease Coronary thrombosis Cystic fibrosis Deafness or hearing loss Dementia Drug abuse Dysphasia Fibrocystic disease of breast Gastroenteritis Glaucoma Hypercholesterolemia Infertility Kidney disease Myocardial infarction Neoplasm Not obtainable due to adoption Osteoporosis Parkinson's disease Prostate cancer Psychosocial problem Seizure disorder Severe allergy Thyroid disease Tuberculosis Visual disorder Physical Exam Vital Signs Vital Signs - First Documented 11/17/19 10:25 Temp 37.2 Pulse 86 Resp 16 B/P (MAP) 157/70 (99) Pulse Ox 96 O2 Delivery Room Air Capillary Refill : Height, Weight, BMI Height: 5'5.00" Weight: 110lbs. 0oz. 49.218013ea; 17.9 BMI Method:Stated General Appearance: WD/WN, no apparent distress HEENT: PERRL/EOMI, normal ENT inspection Neck: full range of motion, normal inspection Cardiovascular: regular rate, rhythm, no JVD Respiratory: normal breath sounds, no respiratory distress, no accessory muscle use Back: normal inspection, no CVA tenderness, no vertebral tenderness Shoulder: normal inspection, non-tender, no evidence of injury, normal ROM Elbow/Forearm: bone tenderness (and left elbow on the flexor surface and along the medial aspect, no swelling or dislocation, appears atraumatic), soft tissue tenderness Wrist: Yes normal inspection, Yes non-tender, Yes no evidence of injury, Yes normal ROM Hand: normal inspection, non-tender, no evidence of injury, normal ROM Progress/Results/Core Measures Results/Orders My Orders Orders - DOLLY EVANS DO Elbow 3 View Left (11/17/19 10:29) Ice: Apply To Affected Area (11/17/19 10:29) Ed Ortho/Other Supplies Order (11/17/19 10:29) Vital Signs/I&O 11/17/19 10:25 Temp 37.2 Pulse 86 Resp 16 B/P (MAP) 157/70 (99) Pulse Ox 96 O2 Delivery Room Air Progress Progress Note : Progress Note @1126 - Patient updated on finding of a left proximal ulnar fracture. She's been placed in a sling for comfort and given Weinert to go home with. Advised the patient to follow-up with orthopedics in the next 1-2 days and to return to the emergency Department immediately for new or worsening symptoms. The patient expresses verbal understanding and agreement the plan and is stable for discharge. Departure Impression Primary Impression: Left ulnar fracture Disposition: 01 HOME, SELF-CARE Condition: Stable Departure-Patient Inst. Decision time for Depature: 11:26 Referrals: KRYSTAL ROMERO MD Patient Instructions: Elbow Fracture (DC), How to Use a Shoulder Sling Add. Discharge Instructions: Use the sling for comfort until follow-up with orthopedics. They will likely want to repeat your x-rays to see how you're healing. Take the prescribed medicine as directed, as needed. Return to the emergency department immediately for new or worsening symptoms. Scripts Hydrocodone/Acetaminophen (Hydrocodone-Acetamin 5-325 mg) 1 Each Tablet 1 EACH PO Q4H PRN for PAIN-MODERATE (5-7) for 5 Days, TAB Prov: DOLLY EVANS DO 11/17/19 DOLLY EVANS DO Nov 17, 2019 10:38
--- OUTSIDE RECORDS SUMMARY | 2019-11-17 10:48 | XMS REPORT | Encounter Summary ---
Author Author [facility] Organization [facility] Address Unknown Phone Unavailable Care Team Providers Care Planning Analyst Name Role Phone Rylee Jacome RN Unavailable Unavailable Tejal Mccracken MD Unavailable Crow Rojo MD Unavailable Rebeca Muller DO Unavailable Gladys Bautista DO Unavailable Reggie Mike MD Unavailable Duc Barger MD Unavailable Dasia Hurley DO Unavailable Yanely Brower APRN PCP Unavailable Reason for Visit * Reason Comments Follow Up CAD, HTN, HLD; overdue nirmala al f/u, last seen by [facility] 10/2015, feeling "pretty good", problems w/ throat, stomach pain s, headaches Encounter Details Care Team Description [place] [id number] [facility] [address] [facility] [place] [address] [place], [place] [id number] Follow Up (CAD, HTN, HLD; overdue annual f/u, last seen by [facility] 10/2015, feeling "pretty good", problems w/ throat, stomach pains, headaches) 07/22/2019 Scheduled The [facility] [address] [facility] [id number] [place] [address] Social History Date Tobacco Use Types Packs/Day Years Used Quit: 12/22/2013 Former Smoker Cigarettes 1 20 Smokeless Tobacco: Never Used Drinks/Week oz/Week Comments Alcohol Use 0.0 No Sex Assigned at Date Recorded Female 07/15/2019 1:07 PM CDT Industry Job Start Date Occupation Not on file Not on file Not on file Travel End Travel History Travel Start No recent travel history available. Date Recorded COVID-19 Exposure Response 07/22/2019 9:51 AM CDT In the last month, have you been in contact with No / Unsure someone who was confirmed or suspected to have Coronavirus / COVID-19? documented as of this encounter Last Filed Vital Signs Reading Time Taken Comments Vital Sign 142/91 07/22/2019 9:40 AM CDT pt reported Blood Pressure 68 07/22/2019 9:40 AM CDT pt reported Pulse - - Temperature - - Respiratory Rate - - Oxygen Saturation - - Inhaled Oxygen Concentration 49 kg (108 lb) 07/22/2019 9:40 AM CDT pt reported Weight 162.6 cm (5' 4") 07/22/2019 9:40 AM CDT pt reported Height 18.54 07/22/2019 9:40 AM CDT Body Mass Index documented in this encounter Functional Status Date of Assessment Functional Status Response 10/28/2018 Does the patient have a hearing impairment: [...] the patient have a cognitive impairment: No documented as of this encounter Patient Instructions * Patient Instructions* Lesvia Scanlon RN - 07/22/2019 10:00 AM CDT [facility] TEAM NURSE LINE- [phone] SCHEDULING NUMBER -[phone] We have refilled your medications Follow up with Dr. Concepcion in one year. In [address] Concepcion would like you to have fasting labs- you will need to fa st for at least 10 hours. Enclosed you can find the orders to take to the lab. documented in this encounter Progress Notes * Steve Concepcion MD - 07/22/2019 10:00 AM CDT Telehealth Visit Note Date of Service: 07/22/2019 Obtained patient's verbal consent to treat them and their agreement to RONALDO marti policy and NPP via this telehealth visit during the Coronavirus [facility] Rebecca Singh is a 38 y.o. female. History of Present Illness I wanted send you an update on your patient, Rebecca Singh, whom I I talked to tawny putnam for follow-up with the Cardiology Department, with the [facility]. Of note this was a telephone visit due to the COVID-19 pandemic. Ms Singh is 38-year-old female with a history of coronary artery disease. In 200 , she underwent PCI and stent placement with a drug-eluting stent to the LAD. S he has had recurrent chest pain episodes in the past, the cardiac evaluations si nce then have not demonstrated findings consistent with obstructive disease. 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 She also has a history of hypertension, prior tobacco use, dyslipidemia, adjust ment reaction, bipolar mood disorder, depression, anxiety and dyslipidemia. In reviewing some blood sugar levels in the past, I think she probably is starting to develop glucose intolerance, though has not been diagnosed with diabetes. She underwent an exercise echocardiogram on October 28, 2018, her EF was 55%, the d iastolic function was normal, RV function was normal, trace MR, trace TR, there is no pericardial effusion, we are unable to calculate a peak pulmonary pressure . She exercised a total of 9 minutes and 51 seconds, she achieved a heart rate of 140, which was submaximal, it was 78% of her maximum predicted heart rate, th ere is no evidence of ischemia at the workload achieved. She subsequently under went a myocardial perfusion study on November 05, 2018, her EF was 59%, the end-tran tolic volume was 78 mL, the pulmonary to myocardial count ratio is 0.35, there i s no transient ischemic dilatation, there is soft tissue attenuation, there is n o significant ischemia. She underwent a left heart catheterization on December 27, 2013 at [facility]. It showed an EF 60%, the LM was n ormal, the LAD had a proximal to mid 30% lesion, the stent was patent, the Circu mflex was dominant and normal, RCA was normal. It is actually been several years since I seen Ms. Singh, my last office visit w angel her was in 2015. However she was seen by my colleague Dr. Crenshaw during the h ospitalization from October 27 until October 28 for chest pain. She ruled out for a n AK, she had the exercise echocardiogram mentioned above, followed by an outpat ient myocardial perfusion study. Since then she feels like she is gotten along pretty well. She does get occasio nal abdominal and chest discomfort, though she feels for the most part is well c ontrolled. I did not scrap picker on any definite anginal symptoms at this time. The rest of her cardiac review of systems is negative. He denies having chest pain, shortness of breath, orthopnea, PND, lower extremit y edema, palpitations, syncope, presyncope, claudication, TIA, or CVA type sympt oms. Review of Systems Constitutional: Negative. HENT: Positive for sore throat. Eyes: Negative. Respiratory: Negative. Cardiovascular: Negative. Gastrointestinal: Stomach pain. Endocrine: Negative. Genitourinary: Negative. Musculoskeletal: Negative. Skin: Negative. Allergic/Immunologic: Negative. Neurological: Positive for headaches. Hematological: Negative. Psychiatric/Behavioral: Negative. All other systems reviewed and are negative. Objective: ACETAMINOPHEN/DIPHENHYDRAMINE (TYLENOL PM PO) Take 1 tablet by mouth three t imes daily as needed. amLODIPine (NORVASC) 10 mg tablet Take one tablet by mouth daily. aspirin EC 81 mg tablet Take one tablet by mouth daily. Take with food. atorvastatin (LIPITOR) 40 mg tablet Take one tablet by mouth at bedtime sarah harmon. duloxetine DR (CYMBALTA) 30 mg capsule Take 1 capsule by mouth daily. lisinopril (PRINIVIL; ZESTRIL) 5 mg tablet Take one tablet by mouth daily af ter dinner. nitroglycerin (NITROSTAT) 0.4 mg tablet Take one tablet under tongue as dire cted for chest pain. pantoprazole DR (PROTONIX) 40 mg tablet Take one tablet by mouth daily. Vitals: 07/22/19 0940 BP: (!) 142/91 BP Source: Arm, Right Upper Pulse: 68 Weight: 49 kg (108 lb) Height: 1.626 m (5' 4") PainSc: Zero Body mass index is 18.54 kg/m. Physical Exam No physical exam was performed today. Assessment and Plan: 1. Coronary artery disease with prior PCI and stent placement to the LAD with a Taxus drug-eluting stent in December 2004. Multiple cardiac evaluations for ch est pain since then without obstructive disease. Overall I believe her underlyi ng disorder is probably due to coronary vasospasm. 2. Coronary artery vasospasm. 3. Hypertension. 4. Dyslipidemia. 5. Possible glucose intolerance. 6. Bipolar mood disorder. 7. Adjustment disorder. 8. History of tobacco use. 9. Possible fibromyalgia. Overall, I think Ms. Singh has been stable from a cardiac standpoint. She does need renewal of her cardiac medications. We will send that over today. She does have fairly recent laboratory data in our computer. I reviewed the lab s from October. I suspect she was off her statin at the time, her LDL was 102. I also talked ab out her elevated triglycerides and watching her carbohydrate intake. She is goi ng to restart atorvastatin 40 mg daily. I am also going to restart her amlodipine 10 mg daily, and lisinopril 5 mg daily . We are going to renew her nitroglycerin sublingual tabs. She is going to con tinue take her aspirin 81 mg on a daily basis. I will plan to repeat her comprehensive metabolic panel in lipid panel in about 3 months. If everything else remain stable I will plan to see her back in 1 year. Thank you for allowing me to participate in Ms. Singh's care. Please feel free to contact me if I can be of further assistance. Sincerely, Steve Concepcion M.D. I spent 20 minutes on the telephone during this visit. documented in this encounter Plan of Treatment Order Schedule Name Type Priority Associated Diag noses Expected: 07/23/2019 (Approximate), Expi res: 07/21/2020 COMPREHENSIVE METABOLIC Lab Routine Sky ry artery disease PANEL involving tling[place] & [place] coronary artery of tling[place] heart without angina pectoris History of AK (myocardial infarction) Expected: 07/23/2019 (Approximate), Expi res: 07/21/2020 LIPID PROFILE Lab Routine Coronary artery disease involving [place] coronary artery of t[place] heart without angina pectoris documented as of this encounter Goals Goal Patient Associated Recent Progress Patient-Stat Aut hor Goal Type Problems ed? GOAL General Yes Qian Kauffman, RN Note: To get better and get back to my normal rpoutine. documented as of this encounter Visit Diagnoses Diagnosis Coronary artery disease involving nativ e coronary artery of tling[place] & [place] heart without angina pectoris History of AK (myocardial infarction) Old myocardial infarction Hyperlipidemia, unspecified hyperlipide yaw type Prinzmetal angina (HCC) Prinzmetal angina documented in this encounter
--- OUTSIDE RECORDS SUMMARY | 2019-11-17 10:48 | XMS REPORT | Encounter Summary ---
Author Author [facility] Organization [facility] Address Unknown Phone Unavailable Care Team Providers Care Dust Collector Ore Crushing Name Role Phone Rylee Jacome RN Unavailable Unavailable Tejal Mccracken MD Unavailable Crow Rojo MD Unavailable Rebeca Muller DO Unavailable Gladys Bautista DO Unavailable Reggie Mike MD Unavailable Duc Barger MD Unavailable Dasia Hurley DO Unavailable Yanely Brower APRN PCP Unavailable Encounter Details Care Team Description Date Type Department 07/22/2019 Travel Social History Date Tobacco Use Types Packs/Day [...] / COVID-19? documented as of this encounter Functional Status Date [...] impairment: No documented as of this encounter Plan of Treatment Not on filedocumented as of this encounter Goals Goal Patient Associated Recent Progress Patient-Stat Aut hor Goal Type Problems ed? GOAL General Yes Qian Kauffman, RN Note: To get better and get back to my normal rpoutine. documented as of this encounter Visit Diagnoses Not on filedocumented in this encounter
--- OUTSIDE RECORDS SUMMARY | 2019-11-17 10:48 | XMS REPORT | Encounter Summary ---
Author Author [facility] Organization [facility] Address Unknown Phone Unavailable Care Team Providers Care Stripping Machine Operator Name Role Phone Rylee Jacome RN Unavailable Unavailable Tejal Mccracken MD Unavailable Crow Rojo MD Unavailable Rebeca Muller DO Unavailable Gladys Bautista DO Unavailable Reggie Mike MD Unavailable Duc Barger MD Unavailable Dasia Hurley DO Unavailable No Pcp, Na PCP Unavailable Reason for Visit * Reason Comments Appointment review telephone call Encounter Details Care Team Description Date Type Department [facility] Appointment (review telephone call) 07/21/2019 [address] [address] Social History Date Tobacco Use Types Packs/Day Years Used Quit: 12/22/2013 Former Smoker Cigarettes 1 20 Smokeless Tobacco: Never Used Drinks/Week oz/Week Comments Alcohol Use 0.0 No Sex Assigned at Date Recorded Female 07/15/2019 1:07 PM CDT Industry Job Start Date Occupation Not on file Not on file Not on file Travel End Travel History Travel Start No recent travel history available. documented as of this encounter Functional Status [...] impairment: No documented as of this encounter Miscellaneous Notes * Telephone Encounter - Saige Smalls - 07/21/2019 1:38 PM CDT Called pt to review telephone call for visit tomorrow. Pt confirms she does not have internet at her house and is unable to do Zoom visit. Pt is agreeable to te lephone call. Pt understands telephone call visit, and is aware of appt time and date. documented in this encounter Plan of Treatment Not on filedocumented as of this encounter Goals Goal Patient Associated Recent Progress Patient-Stat Aut hor Goal Type Problems ed? GOAL General Yes Qian Kauffman, RN Note: To get better and get back to my normal rpoutine. documented as of this encounter Visit Diagnoses Not on filedocumented in this encounter
--- OUTSIDE RECORDS SUMMARY | 2019-11-17 10:48 | XMS REPORT | Clinical Summary ---
Author Author [facility] Organization [facility] Address Unknown Phone Unavailable Care Team Providers Care [place] Compounder Name Role Phone Rylee Jacome RN Unavailable Unavailable Tejal Mccracken MD Unavailable Crow Rojo MD Unavailable Rebeca Muller DO Unavailable Gladys Bautista DO Unavailable Reggie Mike MD Unavailable Duc Barger MD Unavailable Dasia Hurley DO Unavailable Yanely Brower APRN PCP Unavailable Source Comments Some departments are not documenting in the electronic medical record. If you d o not see the information that you expected, contact Release of Information in [facility] Information Management department at [phone] for further assistan ce in locating additional records.[facility] Allergies Comments Active Allergy Reactions Severity Noted Date Tramadol SEIZURES 12/26/2013 Pt has tolerated as of 07/22/19. Acetaminophen RASH Medium 10/25/2012 Medications End Date Status Medication Sig Dispensed Refills Start Date Active ACETAMINOPHEN/DIPHENHYDRA Take 1 tablet 0 MINE (TYLENOL PM PO) by mouth three times daily as needed. Active amLODIPine (NORVASC) 10 Take one 90 tablet 3 mg tablet tablet by 9 mouth daily. Active aspirin EC 81 mg tablet Take one 90 tablet 3 tablet by 9 mouth daily. Take with food. Active pantoprazole DR Take one 90 tablet 3 (PROTONIX) 40 mg tablet tablet by 9 mouth daily. Active duloxetine DR (CYMBALTA) Take 1 0 05/28 30 mg capsule capsule by 0 mouth daily. Active atorvastatin (LIPITOR) 40 Take one 30 tablet 3 mg tabletIndications: tablet by 0 Hyperlipidemia, mouth at unspecified bedtime hyperlipidemia type daily. Active lisinopriL (ZESTRIL) 5 mg Take one 90 tablet 3 tablet tablet by 0 mouth daily after dinner. Active nitroglycerin (NITROSTAT) Take one 25 tablet 1 0.4 mg tabletIndications: tablet under 0 Prinzmetal angina (HCC) tongue as directed for chest pain. Active Problems Problem Noted Date Chest pain 10/27/2018 Elbow swelling 02/18/2016 Moderate episode of recurrent major depressive disord er 02/09/2016 Generalized anxiety disorder 02/09/2016 Irregular pigmentation of skin 06/07/2015 Essential hypertension 03/10/2015 Skin lesion 03/10/2015 Need for influenza vaccination 03/10/2015 Hx of bipolar disorder 01/01/2015 Overview: Type II PTSD (post-traumatic stress disorder) 01/01/2015 History of WI (myocardial infarction) 11/25/2014 Overview: 2004 Fibromyalgia 04/15/2014 HTN (hypertension) 01/11/2011 Tobacco abuse 01/11/2011 CAD (coronary artery disease) 12/11/2010 Overview: A. 12/15/2004 LHC at [facility] EF 55% , LAD 90%, no obstructive disease in the Circ or RCA. B. 12/15/2004 s/p PCI and stent to LAD with 3.0 mm Taxus ADRIANE. C. 12/10/2010 LHC at [facility] when admitte d with CP and mildly elevated troponin, EF 55%, LM nl, LAD with paten t stent, D1 with 50% due to stent, Circ nl, RCA small and non-dominant and normal. D. 12/12/2013 Echo EF of 55 percent. D iastolic function was normal. RV size and function was normal. Valvular structures were all normal. Her peak pulmonary pressure was 23 mmHg. E. 12/12/2013 MPI EF of 65 percent. Th e perfusion pattern was normal. There was no evidence of ischemia. G. 12/27/2013 LHC at [facility] [place] EF 60%, LM nl, LAD mid 30%, patent stent, Circumflex dominant and n ormal, RCA normal. H. 04/26/2017 MPI EF 62%, EDV 62 mL, L HR 0.32, no TID, no ischemia. I. 10/28/2018 Ex Echo EF was 55%, the diastolic function was normal, RV function was normal, trace MR, trace TR , there is no pericardial effusion, we are unable to calculate a peak pulmo nary pressure. She exercised a total of 9 minutes and 51 seconds, she achieved a heart rate of 140, which was submaximal, it was 78% of her maxim um predicted heart rate, there is no evidence of ischemia at the workload ac hieved. J. 11/05/2018 MPI She EF was 59%, ECV 78 mL, LHR 0.35, no TID, there is soft tissue attenuation, there is no si gnificant ischemia. Adjustment reaction 12/11/2010 Major depressive disorder, recurrent episode, in part ial remission 12/11/2010 Anxiety 12/11/2010 Hyperlipidemia 12/11/2010 Overview: A. 12/11/2010 TC 90, TG 61, HDL 31, LD L 48. Resolved Problems Problem Noted Date Resolved Date Chest pain 01/11/2011 04/27/2017 Overview: A. 12/10/2010 minimally elevated tropo shilpa, LHC without obstructive disease. B. 12/10/2010 CTA of chest no aneurysm or PE. Findings of airway disease. C. 12/10/2010 treated empirically with NSAID and PPI. Encounters Care Team Description Date Type Specialty Hanane Cole RN Patient Reminder Call (Labs due) 11/11/2019 Telephone Cardiology from Last 3 Months Immunizations Name Administration Dates Next Due Flu Vaccine Quadrivalent 02/18/2016 =>3 Yo (Preservative Free) Flu Vaccine Trivalent =>3 03/10/2015, 12/26/2013 Yo (Preservative Free) Family History [...] travel history available. Last Filed Vital Signs Reading Time Taken Comments Vital Sign 142/91 07/22/2019 9:40 AM CDT pt reported Blood Pressure 68 07/22/2019 9:40 AM CDT pt reported Pulse 36.8 C (98.2 F) 10/28/2018 3:12 PM CDT Temperature 16 01/08/2017 8:28 AM CDT Respiratory Rate 96% 10/28/2018 3:12 PM CDT Oxygen Saturation - - Inhaled Oxygen Concentration 49 kg (108 lb) 07/22/2019 9:40 AM CDT pt reported Weight 162.6 cm (5' 4") 07/22/2019 9:40 AM CDT pt reported Height 18.54 07/22/2019 9:40 AM CDT Body Mass Index Plan of Treatment Health Maintenance Due Date Last Done Comments HIV SCREENING 1993 DTAP/TDAP VACCINES (1 - 1996 Tdap) HEPATITIS C SCREENING 1996 PHYSICAL (COMPREHENSIVE) 02/17/2017 02/18/2016, EXAM 12/26/2013 (Previously completed) BREAST CANCER SCREENING 2018 INFLUENZA VACCINE 01/08/2020 02/18/2016, 02/18/2016, 03/10/2015, Additional history exists Goals Goal Patient Associated Recent Progress Patient-Stat Aut hor Goal Type Problems ed? GOAL General Yes Qian Kauffman, RN Note: To get better and get back to my normal rpoutine. Results Not on filefrom Last 3 Months Insurance Type Payer Benefit Subscriber ID Effective Phone Address Plan / Dates Group Medicaid [facility] MEDICAID [facility] xxxxxxxxxxx 2012-P [employer] [place] [phone] [id number] (Home) [place] [phone] Advance Directives Patient Spud Grader Explanation Type Date Recorded Advance 10/28/2018 12:00 AM Directive/DPOA Advance 10/28/2018 12:00 AM Directive/DPOA Date Inactivated Comments Code Status Date Activated 10/28/2018 7:51 PM Full Code 10/27/2018 4:04 AM Provider has discussed Code Status Yes w/Patient or Family? 10/27/2018 4:04 AM Full Code 10/27/2018 3:17 AM Provider has discussed Code Status No, more discussi on w/Patient or Family? needed 04/27/2017 7:31 PM Full Code 04/25/2017 9:16 PM Provider has discussed Code Status Yes w/Patient or Family? 12/11/2010 4:33 PM Full Code 12/10/2010 6:16 AM Provider has discussed Code Status Yes w/Patient or Family?
--- OUTSIDE RECORDS SUMMARY | 2019-11-17 10:48 | XMS REPORT | Encounter Summary ---
Author Author [facility] Organization [facility] Address Unknown Phone Unavailable Care Team Providers Care Fish Inspector Name Role Phone Rylee Jacome RN Unavailable Unavailable Tejal Mccracken MD Unavailable Crow Rojo MD Unavailable Rebeca Muller DO Unavailable Gladys Bautista DO Unavailable Reggie Mike MD Unavailable Duc Barger MD Unavailable Dasia Hurley DO Unavailable Yanely Brower APRN PCP Unavailable Reason for Visit * Reason Comments Patient Reminder Call Labs due Encounter Details Care Team Description Date Type Department Hanane Cole RN Patient Reminder Call (Labs due) 11/11/2019 Telephone [facility] [address] [facility] [address] [place] [address] Social History Date Tobacco Use Types Packs/Day [...] encounter Miscellaneous Notes * Telephone Encounter - Hanane Cole RN - 11/11/2019 12:23 PM CDT CMP and FLP due, LVM with pt as a reminder. Asked pt to call the office back to update us on her status with these labs. documented in this encounter Plan of Treatment [...]
--- OUTSIDE RECORDS SUMMARY | 2019-11-17 10:48 | XMS REPORT | Encounter Summary ---
Author Author [facility] Organization [facility] Address Unknown Phone Unavailable Care Team Providers Care Paper Products Supervisor Name Role Phone Rylee Jacome RN Unavailable Unavailable Tejal Mccracken MD Unavailable Crow Rojo MD Unavailable Rebeca Muller DO Unavailable Gladys Bautista DO Unavailable Reggie Mike MD Unavailable Duc Barger MD Unavailable Dasia Hurley DO Unavailable Reason for Visit * Reason Comments Medication Refill Medication Refill Encounter Details Care Team Description Date Type Department Neo Tovar MD [address] [facility] [place] [address] 05/23/2019 Refill [facility] [address] [place] [address] Social History Date Tobacco Use Types Packs/Day Years Used Quit: 12/22/2013 Former Smoker Cigarettes 1 20 Smokeless Tobacco: Never Used Drinks/Week oz/Week Comments Alcohol Use 0.0 No Sex Assigned at Date Recorded Female Industry Job Start Date Occupation Not on [...]
--- OUTSIDE RECORDS SUMMARY | 2019-11-17 10:48 | XMS REPORT | Encounter Summary ---
Author Author [facility] Organization [facility] Address Unknown Phone Unavailable Care Team Providers Care Advanced Practice Provider Name Role Phone Rylee Jacome RN Unavailable Unavailable Tejal Mccracken MD Unavailable Crow Rojo MD Unavailable Rebeca Muller DO Unavailable Gladys Bautista DO Unavailable Reggie Mike MD Unavailable Duc Barger MD Unavailable Dasia Hurley DO Unavailable Reason for Visit * Reason Comments Follow-up Phone Call Encounter Details Care Team Description Date Type Department Neo Tovar MD [address] [place] [address] Follow-up Phone Call 05/27/2019 Telephone [facility] [address] [address] Social History Date Tobacco Use Types [...]
--- OUTSIDE RECORDS SUMMARY | 2019-11-17 10:48 | XMS REPORT | Encounter Summary ---
Author Author [facility] Organization [facility] Address Unknown Phone Unavailable Care Team Providers Care Cloud Engagement Partner Name Role Phone Rylee Jacome RN Unavailable Unavailable Tejal Mccracken MD Unavailable Crow Rojo MD Unavailable Rebeca Muller DO Unavailable Gladys Bautista DO Unavailable Reggie Mike MD Unavailable Duc Barger MD Unavailable Dasia Hurley DO Unavailable Reason for Visit * Reason Comments Medication Problem Encounter Details Care Team Description Date Type Department Neo Tovar MD [address] [place], [place] [id number] Medication Problem 05/27/2019 Telephone [facility] [address] [id number] Social History Date Tobacco Use Types Packs/Day [...] encounter Miscellaneous Notes * Telephone Encounter - Rebecca Hutson BSN - 05/27/2019 4:08 PM SITE SUPERVISOR Per Dr. Tovar medication can't be refilled until visit. SUPERVISOR * Telephone Encounter - Rebecca Hutson BSN - 05/27/2019 2:00 PM SITE SUPERVISOR Patient calling in asking for medication Methocarbamol to be refilled again. Per Dr. Tovar's last message pt to be seen in clinic before medications can be refil led. Patient now out of medications and appointment is not until 06/16. Asking f or medication to be refilled. Per patient report with her Pharmacy medication ne eds to be refilled for 90 day supply for insurance purposes. Will route to Dr. Ebony olvera for consideration. SUPERVISOR documented in this encounter Plan of Treatment [...]
--- OUTSIDE RECORDS SUMMARY | 2019-11-17 10:49 | XMS REPORT | Continuity of Care Document ---
Author Organization Unknown Address Unknown Phone Unavailable Allergies Active Description Code Type Severity Reaction Onset Reported/Identified Relationship to Patient Clinical Status Yes acetaminophen [id number] Andi g Allergy Unknown N/A 12/26/2013 Yes tramadol [id number] Drug Allergy Severe SEIZURE 12/26/2013 Medications There is no data. Problems Date Dx Coded Attending Type Code Diagnosis Diagnosed By 12/27/2013 MILADY RODRIGUEZ MD Ot 296.80 BIPOLAR DISORDER, UNSPECIFIED 12/27/2013 MILADY RODRIGUEZ MD Ot 300.00 ANXIETY STATE NOS 12/27/2013 MILADY RODRIGUEZ MD Ot 305.1 TOBACCO USE DISORDER 12/27/2013 MILADY RODRIGUEZ MD Ot 414.01 CORONARY ATHEROSCLEROSIS OF [place] CORON 12/27/2013 MILADY RODRIGUEZ MD Ot 530.81 ESOPHAGEAL REFLUX 12/27/2013 MILADY RODRIGUEZ MD Ot 786.59 CHEST PAIN NEC 12/27/2013 MILADY RODRIGUEZ MD Ot V45.82 PERCUTANEOUS TRANSLUM CORON ANGIOPLASTY 12/27/2013 MILADY RODRIGUEZ MD Ot V58.69 OTH MED,LT,CURRENT USE 05/28/2018 JEWELL DEVYN Ot F17.290 NICOTINE DEPENDENCE, OTHER TOBACCO PRODU 05/28/2018 BERNPAT DEVYN Ot F31.9 BIPOLAR DISORDER, UNSPECIFIED 05/28/2018 BERNOT DEVYN Ot F41.9 ANXIETY DISORDER, UNSPECIFIED 05/28/2018 BERNPAT DEVYN Ot 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, UNSPECIFIED 05/28/2018 BERNPAT DEVYN Ot K21.9 GASTRO-ESOPHAGEAL REFLUX DISEASE WITHOUT 05/28/2018 BERNPAT DEVYN Ot R10.11 RIGHT UPPER QUADRANT PAIN 05/28/2018 BERNPAT, DEVYN Ot Z79.02 TRANSCRIPTION MANAGER (CURRENT) USE OF ANTITHROMBOTI 05/28/2018 BERNPAT, DEVYN Ot Z79.82 TRANSCRIPTION MANAGER (CURRENT) USE OF ASPIRIN 05/28/2018 JEWELL DEVYN Ot Z82.49 FAMILY HX OF ISCHEM HEART DIS AND OTH DI 05/28/2018 JOSELUIS CORCORANIS Ot Z85.41 PERSONAL HISTORY OF MALIGNANT NEOPLASM O 05/28/2018 JOSELUIS CORCORANIS Ot Z87.09 PERSONAL HISTORY OF OTHER DISEASES OF TH 05/28/2018 BERNJOSELUIS STEWARTIS Ot Z87.19 PERSONAL HISTORY OF OTHER DISEASES OF TH 05/28/2018 JOSELUIS CORCORANIS Ot Z87.448 PERSONAL HISTORY OF OTHER DISEASES OF UR 05/28/2018 JOSELUIS CORCORANIS Ot Z88.6 ALLERGY STATUS TO ANALGESIC AGENT STATUS 05/28/2018 JOSELUIS CORCORANIS Ot Z90.49 ACQUIRED ABSENCE OF OTHER SPECIFIED PART 05/28/2018 JOSELUIS CORCORANIS Ot Z90.710 ACQUIRED ABSENCE OF BOTH CERVIX AND UTER 05/28/2018 JOSELUIS CORCORANIS Ot Z90.89 ACQUIRED ABSENCE OF OTHER ORGANS 05/29/2018 JOSELUIS CORCORANIS Ot R10.11 RIGHT UPPER QUADRANT PAIN 05/29/2018 JOSELUIS CORCORANIS Ot R16.0 HEPATOMEGALY, NOT ELSEWHERE CLASSIFIED 05/30/2018 JOSELUIS CORCORANIS Ot F17.290 NICOTINE DEPENDENCE, OTHER TOBACCO PRODU 05/30/2018 JOSELUIS CORCORANIS Ot F31.9 BIPOLAR DISORDER, UNSPECIFIED 05/30/2018 JOSELUIS CORCORANIS Ot F41.9 ANXIETY DISORDER, UNSPECIFIED 05/30/2018 JOSELUIS CORCORANIS Ot 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, UNSPECIFIED 05/30/2018 JOSELUIS CORCORANIS Ot K21.9 GASTRO-ESOPHAGEAL REFLUX DISEASE WITHOUT 05/30/2018 JOSELUIS CORCORANIS Ot R10.11 RIGHT UPPER QUADRANT PAIN 05/30/2018 JOSELUIS CORCORANIS Ot Z79.02 FPC (CURRENT) USE OF ANTITHROMBOTI 05/30/2018 JOSELUIS CORCORANIS Ot Z79.82 FPC (CURRENT) USE OF ASPIRIN 05/30/2018 JOSELUIS CORCORANIS Ot Z82.49 FAMILY HX OF ISCHEM HEART DIS AND OTH DI 05/30/2018 JOSELUIS CORCORANIS Ot Z85.41 PERSONAL HISTORY OF MALIGNANT NEOPLASM O 05/30/2018 JOSELUIS CORCORANIS Ot Z87.09 PERSONAL HISTORY OF OTHER DISEASES OF TH 05/30/2018 JOSELUIS CORCORANIS Ot Z87.19 PERSONAL HISTORY OF OTHER DISEASES OF TH 05/30/2018 JOSELUIS CORCORANIS Ot Z87.448 PERSONAL HISTORY OF OTHER DISEASES OF UR 05/30/2018 DEVYN CORCORAN Ot Z88.6 ALLERGY STATUS TO ANALGESIC AGENT STATUS 05/30/2018 DEVYN CORCORAN Ot Z90.49 ACQUIRED ABSENCE OF OTHER SPECIFIED PART 05/30/2018 DEVYN CORCORAN Ot Z90.710 ACQUIRED ABSENCE OF BOTH CERVIX AND UTER 05/30/2018 DEVYN CORCORAN Ot Z90.89 ACQUIRED ABSENCE OF OTHER ORGANS 06/03/2018 YULIYA HUGHES DO D Ot 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 1 CHRONIC CHOLECYSTITIS 06/03/2018 YULIYA HUGHES DO D Ot K82. 8 OTHER SPECIFIED DISEASES OF GALLBLADDER 06/03/2018 YULIYA HUGHES DO D Ot Z79. 82 TRANSCRIPTION MANAGER (CURRENT) USE OF ASPIRIN 06/03/2018 YULIYA HUGHES DO D Ot Z79.899 OTHER TRANSCRIPTION MANAGER (CURRENT) DRUG THERAPY 06/03/2018 YULIYA HUGHES DO D Ot Z87. 81 PERSONAL HISTORY OF (HEALED) TRAUMATIC F 06/03/2018 YULIYA HUGHES DO Ot Z95. 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 1 CHRONIC CHOLECYSTITIS 06/06/2018 YULIYA HUGHES DO D Ot K82. 8 OTHER SPECIFIED DISEASES OF GALLBLADDER 06/06/2018 YULIYA HUGHES DO Ot Z79. 82 FPC (CURRENT) USE OF ASPIRIN 06/06/2018 YULIYA HUGHES DO D Ot Z79.899 OTHER FPC (CURRENT) DRUG THERAPY 06/06/2018 YULIYA HUGHES DO D Ot Z87. 81 PERSONAL HISTORY OF (HEALED) TRAUMATIC F 06/06/2018 YULIYA HUGHES DO D Ot Z95. 5 PRESENCE OF CORONARY ANGIOPLASTY IMPLANT 06/18/2018 DEVYN CORCORAN Ot R10.11 RIGHT UPPER QUADRANT PAIN 06/18/2018 DEVYN CORCORAN Ot R16.0 HEPATOMEGALY, NOT ELSEWHERE CLASSIFIED 06/18/2018 YULIYA HUGHES DO Ot R10. 13 EPIGASTRIC PAIN 11/13/2018 DINORAH ALFARO MD F31.9 BIPOLAR DISORDER, UNSPECIFIED 11/13/2018 DINORAH ALFARO MD F41.9 ANXIETY DISORDER, UNSPECIFIED 11/13/2018 DINORAH ALFARO MD 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, UNSPECIFIED 11/13/2018 DINORAH ALFARO MD I20.0 UNSTABLE ANGINA 11/13/2018 DINORAH ALFARO MD K21.0 GASTRO-ESOPHAGEAL REFLUX DISEASE WITH ES 11/13/2018 DINORAH ALFARO MD R07.9 CHEST PAIN, UNSPECIFIED 11/13/2018 DINORAH ALFARO MD Z79.82 TRANSCRIPTION MANAGER (CURRENT) USE OF ASPIRIN 11/13/2018 DINORAH ALFARO MD Z82.49 FAMILY HX OF ISCHEM HEART DIS AND OTH DI 11/13/2018 DINORAH ALFARO MD Z85.41 PERSONAL HISTORY OF MALIGNANT NEOPLASM O 11/13/2018 DINORAH ALFARO MD Z87.891 PERSONAL HISTORY OF NICOTINE DEPENDENCE 11/13/2018 DINORAH ALFARO MD Z88.5 ALLERGY STATUS TO NARCOTIC AGENT STATUS 11/13/2018 DINORAH ALFARO MD Z88.6 ALLERGY STATUS TO ANALGESIC AGENT STATUS 11/13/2018 DINORAH ALFARO MD Z90.49 ACQUIRED ABSENCE OF OTHER SPECIFIED PART 11/13/2018 DINORAH ALFARO MD Z90.710 ACQUIRED ABSENCE OF BOTH CERVIX AND UTER 11/13/2018 DINORAH ALFARO MD Z95.5 PRESENCE OF CORONARY ANGIOPLASTY IMPLANT 09/30/2019 BRADY ROSS WINDOWS SERVER ENGINEER Ot R25.2 CRAMP AND SPASM 09/30/2019 BRADY ROSS APRN Ot R53.83 OTHER FATIGUE Procedures There is no data. Results Test Result Range Complete blood count (CBC) with automate d white blood cell (WBC) differential - 05/28/18 19:25 Blood leukocytes automated count (number/volume) 8.9 10*3/uL 4.3-11.0 Blood erythrocytes automated count (number/volume) 3.71 10*6/uL 4.35-5.85 Venous blood hemoglobin measurement (mass/volume) 12.0 g/dL 11.5-16.0 Blood hematocrit (volume fraction) 36 % 35-52 Automated erythrocyte mean corpuscular volume 98 [ foz_us] 80-99 Automated erythrocyte mean corpuscular h emoglobin (mass per erythrocyte) 32 pg 25-34 Automated erythrocyte mean corpuscular h emoglobin concentration measurement (mass/volume) 33 g/dL 32-36 Automated erythrocyte distribution width ratio 13. 7 % 10.0- 14.5 Automated blood platelet count (count/volume) 354 10*3/uL 130-400 Automated blood platelet mean volume measurement 9.4 [foz_us] 7.4-10.4 Automated blood neutrophils/100 leukocytes 81 % 42-75 Automated blood lymphocytes/100 leukocytes 12 % 12-44 Blood monocytes/100 leukocytes 7 % 0-12 Automated blood eosinophils/100 leukocytes 0 % 0-10 Automated blood basophils/100 leukocytes 0 % 0-10 Blood neutrophils automated count (number/volume) 7.3 10*3 1.8-7.8 Blood lymphocytes automated count (number/volume) 1.0 10*3 1.0-4.0 Blood monocytes automated count (number/volume) 0. 6 10*3 0.0-1.0 Automated eosinophil count 0.0 10*3/uL 0 .0-0.3 Automated blood basophil count (count/volume) 0.0 10*3/uL 0.0-0.1 Comprehensive metabolic panel - 05/28/18 19:25 Serum or plasma sodium measurement (moles/volume) 137 mmol/L 135-145 Serum or plasma potassium measurement (moles/volume) 3.8 mmol/L 3.6-5.0 Serum or plasma chloride measurement (moles/volume) 102 mmol/L 98-107 Carbon dioxide 24 mmol/L 21-32 Serum or plasma anion gap determination (moles/volume) 11 mmol/L 5-14 Serum or plasma urea nitrogen measurement (mass/volume ) 9 mg/dL 7-18 Serum or plasma creatinine measurement (mass/volume) 0.70 mg/dL 0.60-1.30 Serum or plasma urea nitrogen/creatinine mass ratio 13 NRG Serum or plasma creatinine measurement w ith calculation of estimated glomerular filtration rate > NRG Serum or plasma glucose measurement (mass/volume) 138 mg/dL 70-105 Serum or plasma calcium measurement (mass/volume) 9.1 mg/dL 8.5-10.1 Serum or plasma total bilirubin measurement (mass/volu me) 0.2 mg/dL 0.1-1.0 Serum or plasma alkaline phosphatase eze surement (enzymatic activity/volume) 440 U/L 40-136 Serum or plasma aspartate aminotransfera se measurement (enzymatic activity/volume) 98 U/L 5-34 Serum or plasma alanine aminotransferase measurement (enzymatic activity/volume) 167 U/L 0-55 Serum or plasma protein measurement (mass/volume) 7.9 g/dL 6.4-8.2 Serum or plasma albumin measurement (mass/volume) 4.2 g/dL 3.2-4.5 CALCIUM CORRECTED 8.9 mg/dL 8.5-10.1 Lipase - 05/28/18 19:25 Lipase 59 U/L 8-78 Complete urinalysis with reflex to cultu re - 05/28/18 20:40 Urine color determination YELLOW NRG Urine clarity determination SLIGHTLY CLOUDY NRG Urine pH measurement by test strip 5 5-9 Specific gravity of urine by test strip 1.020 1.016-1.022 Urine protein assay by test strip, semi-quantitative 1+ NEGATIVE Urine glucose detection by automated test strip 1+ NEGATIVE Erythrocytes detection in urine sediment by light micr oscopy NEGATIVE NEGATIVE Urine ketones detection by automated test strip NE GATIVE NEGATIVE Urine nitrite detection by test strip NEGATIVE NEGATIVE Urine total bilirubin detection by test strip 1+ NEGATIVE Urine urobilinogen measurement by automated test strip (mass/volume) NORMAL NORMAL Urine leukocyte esterase detection by dipstick 1+ NEGATIVE Automated urine sediment erythrocyte cou nt by microscopy (number/high power field) NONE NRG Automated urine sediment leukocyte count by microscopy (number/high power field) [HPF] NRG Bacteria detection in urine sediment by light microsco py FEW NRG Squamous epithelial cells detection in u rine sediment by light microscopy 10-25 NRG Crystals detection in urine sediment by light microsco py NONE NRG Casts detection in urine sediment by light microscopy NONE NRG Mucus detection in urine sediment by light microscopy LARGE NRG Complete urinalysis with reflex to culture NO NRG Methicillin resistant Staphylococcus aur eus (MRSA) screening culture - 06/03/18 08:38 Methicillin resistant Staphylococcus aureus (MRSA) scr eening culture NEG NRG HSV 1/2 ANTIBODY IgM - 08/27/18 17:31 HSV 1 IGM SCREEN NEGATIVE NRG HSV 2 IGM SCREEN NEGATIVE NRG GC/CHLAMYDIA (SWAB OR URINE)-RAPID - 17:34 CHLAMYDIA TRACHOMATIS RNA, TMA NOT DETECTED NOT DETECTED NEISSERIA GONORRHOEAE RNA, TMA NOT DETECTED NOT DETECTED COMMENT NRG Blood CBC with ordered manual differenti al panel - 10/26/18 21:39 Blood leukocytes automated count (number/volume) 10.7 10*3/uL 4.3-11.0 Blood erythrocytes automated count (number/volume) 4.01 10*6/uL 4.35-5.85 Venous blood hemoglobin measurement (mass/volume) 13.2 g/dL 11.5-16.0 Blood hematocrit (volume fraction) 39 % 35-52 Automated erythrocyte mean corpuscular volume 97 [ foz_us] 80-99 Automated erythrocyte mean corpuscular h emoglobin (mass per erythrocyte) 33 pg 25-34 Automated erythrocyte mean corpuscular h emoglobin concentration measurement (mass/volume) 34 g/dL 32-36 Automated erythrocyte distribution width ratio 13. 2 % 10.0- 14.5 Automated blood platelet count (count/volume) 213 10*3/uL 130-400 Automated blood platelet mean volume measurement 10.2 [foz_us] 7.4-10.4 Automated blood neutrophils/100 leukocytes 39 % 42-75 Automated blood lymphocytes/100 leukocytes 51 % 12-44 Blood monocytes/100 leukocytes 7 % NRG Automated blood eosinophils/100 leukocytes 2 % 0-10 Automated blood basophils/100 leukocytes 1 % 0-10 Blood neutrophils automated count (number/volume) 4.2 10*3 1.8-7.8 Blood lymphocytes automated count (number/volume) 5.4 10*3 1.0-4.0 Blood monocytes automated count (number/volume) 0. 8 10*3 0.0-1.0 Automated eosinophil count 0.2 10*3/uL 0 .0-0.3 Automated blood basophil count (count/volume) 0.1 10*3/uL 0.0-0.1 Manual blood segmented neutrophils/100 leukocytes 38 % NRG Blood band neutrophils/100 leukocytes 1 % NRG Manual blood lymphocytes/100 leukocytes 38 % NRG Manual eosinophils/100 leukocytes in nose 2 % NR Manual blood lymphocytes variant/100 leukocytes 14 % [facility] Comprehensive metabolic panel - 10/26/18 21:39 Serum or plasma sodium measurement (moles/volume) 139 mmol/L 135-145 Serum or plasma potassium measurement (moles/volume) 2.9 mmol/L 3.6-5.0 Serum or plasma chloride measurement (moles/volume) 98 mmol/L 98-107 Carbon dioxide 18 mmol/L 21-32 Serum or plasma anion gap determination (moles/volume) 23 mmol/L 5-14 Serum or plasma urea nitrogen measurement (mass/volume ) 13 mg/dL 7-18 Serum or plasma creatinine measurement (mass/volume) 0.82 mg/dL 0.60-1.30 Serum or plasma urea nitrogen/creatinine mass ratio 16 NRG Serum or plasma creatinine measurement w ith calculation of estimated glomerular filtration rate > NR Serum or plasma glucose measurement (mass/volume) 97 mg/dL 70-105 Serum or plasma calcium measurement (mass/volume) 9.5 mg/dL 8.5-10.1 Serum or plasma total bilirubin measurement (mass/volu me) 0.2 mg/dL 0.1-1.0 Serum or plasma alkaline phosphatase eze surement (enzymatic activity/volume) 90 U/L 40-136 Serum or plasma aspartate aminotransfera se measurement (enzymatic activity/volume) 77 U/L 5-34 Serum or plasma alanine aminotransferase measurement (enzymatic activity/volume) 36 U/L 0-55 Serum or plasma protein measurement (mass/volume) 7.9 g/dL 6.4-8.2 Serum or plasma albumin measurement (mass/volume) 4.8 g/dL 3.2-4.5 Serum or plasma troponin i.cardiac measu rement (mass/volume) - 10/26/18 21:39 Serum or plasma troponin i.cardiac measurement (mass/v olume) < ng/mL <0.30 Lipase - 10/26/18 21:39 Lipase 46 U/L 8-78 Serum or plasma ethanol measurement (mas s/volume) - 10/26/18 21:39 Serum or plasma ethanol measurement (mass/volume) 129 mg/dL <10 Urine drug screening test - 10/26/18 22: 20 Urine phencyclidine detection by screening method NEGATIVE NEGATIVE Urine benzodiazepines detection by screening method NEGATIVE NEGATIVE Urine cocaine detection NEGATIVE NEGATI VE Urine amphetamines detection by screening method N EGATIVE NEGATIVE Urine methamphetamine detection by screening method NEGATIVE NEGATIVE Urine cannabinoids detection by screening method P OSITIVE NEGATIVE Urine opiates detection by screening method NEGATI VE NEGATIVE Urine barbiturates detection NEGATIVE N EGATIVE Screening urine tricyclic antidepressants detection NEGATIVE NEGATIVE Urine methadone detection by screening method NEGA TIVE NEGATIVE Urine oxycodone detection NEGATIVE NEGA TIVE Urine propoxyphene detection NEGATIVE N EGATIVE Blood CBC with ordered manual differenti al panel - 09/29/19 12:05 Blood leukocytes automated count (number/volume) 8.6 10*3/uL 4.3-11.0 Blood erythrocytes automated count (number/volume) 4.06 10*6/uL 4.35-5.85 Venous blood hemoglobin measurement (mass/volume) 13.7 g/dL 11.5-16.0 Blood hematocrit (volume fraction) 40 % 35-52 Automated erythrocyte mean corpuscular volume 99 [ foz_us] 80-99 Automated erythrocyte mean corpuscular h emoglobin (mass per erythrocyte) 34 pg 25-34 Automated erythrocyte mean corpuscular h emoglobin concentration measurement (mass/volume) 34 g/dL 32-36 Automated erythrocyte distribution width ratio 13. 3 % 10.0- 14.5 Automated blood platelet count (count/volume) 225 10*3/uL 130-400 Automated blood platelet mean volume measurement 10.4 [foz_us] 7.4-10.4 Automated blood neutrophils/100 leukocytes 57 % 42-75 Automated blood lymphocytes/100 leukocytes 36 % 12-44 Blood monocytes/100 leukocytes 3 % NRG Automated blood eosinophils/100 leukocytes 1 % 0-10 Automated blood basophils/100 leukocytes 1 % 0-10 Blood neutrophils automated count (number/volume) 4.9 10*3 1.8-7.8 Blood lymphocytes automated count (number/volume) 3.1 10*3 1.0-4.0 Blood monocytes automated count (number/volume) 0. 4 10*3 0.0-1.0 Automated eosinophil count 0.1 10*3/uL 0 .0-0.3 Automated blood basophil count (count/volume) 0.1 10*3/uL 0.0-0.1 Manual blood segmented neutrophils/100 leukocytes 54 % NRG Blood band neutrophils/100 leukocytes 4 % NRG Manual blood lymphocytes/100 leukocytes 31 % NRG Manual eosinophils/100 leukocytes in nose 2 % NR Manual blood basophils/100 leukocytes 0 % NR Manual blood lymphocytes variant/100 leukocytes 6 % NR Blood erythrocyte morphology finding identification NORMAL NR Comprehensive metabolic panel - 09/29/19 12:05 Serum or plasma sodium measurement (moles/volume) 140 mmol/L 135-145 Serum or plasma potassium measurement (moles/volume) 3.8 mmol/L 3.6-5.0 Serum or plasma chloride measurement (moles/volume) 100 mmol/L 98-107 Carbon dioxide 26 mmol/L 21-32 Serum or plasma anion gap determination (moles/volume) 14 mmol/L 5-14 Serum or plasma urea nitrogen measurement (mass/volume ) 13 mg/dL 7-18 Serum or plasma creatinine measurement (mass/volume) 1.17 mg/dL 0.60-1.30 Serum or plasma urea nitrogen/creatinine mass ratio 11 NRG Serum or plasma creatinine measurement w ith calculation of estimated glomerular filtration rate 51 NRG Serum or plasma glucose measurement (mass/volume) 92 mg/dL 70-105 Serum or plasma calcium measurement (mass/volume) 9.9 mg/dL 8.5-10.1 Serum or plasma total bilirubin measurement (mass/volu me) 0.3 mg/dL 0.1-1.0 Serum or plasma alkaline phosphatase eze surement (enzymatic activity/volume) 87 U/L 40-136 Serum or plasma aspartate aminotransfera se measurement (enzymatic activity/volume) 69 U/L 5-34 Serum or plasma alanine aminotransferase measurement (enzymatic activity/volume) 61 U/L 0-55 Serum or plasma protein measurement (mass/volume) 8.3 g/dL 6.4-8.2 Serum or plasma albumin measurement (mass/volume) 5.1 g/dL 3.2-4.5 Magnesium - 09/29/19 12:05 Magnesium 2.4 mg/dL 1.6-2.4 THYROID STIMULATING HORMONE - 09/29/19 1 2:05 THYROID STIMULATING HORMONE 96.06 u[iU]/mL 0.35-4.94 Serum or plasma thyroxine (T4) free betty urement (mass/volume) - 09/29/19 12:05 Serum or plasma thyroxine (T4) free measurement (mass/ volume) < ng/dL 0.70-1.48 LIPID PANEL - 10/31/19 08:11 CHOLESTEROL, TOTAL 172 mg/dL <200 HDL CHOLESTEROL 43 mg/dL > OR = 50 TRIGLYCERIDES 125 mg/dL <150 LDL-CHOLESTEROL 106 mg/dL (calc) NRG CHOL/HDLC RATIO 4.0 (calc) <5.0 NON HDL CHOLESTEROL 129 mg/dL (calc) <13 0 CMP - 10/31/19 08:11 GLUCOSE 103 mg/dL 65-99 UREA NITROGEN (BUN) 12 mg/dL 7-25 CREATININE 0.95 mg/dL 0.50-1.10 eGFR NON-AFR. [place] 74 mL/min/1.73m2 > OR = 60 eGFR 86 mL/min/1.73m2 > OR = 60 BUN/CREATININE RATIO NOT APPLICABLE (calc) 6-22 SODIUM 142 mmol/L 135-146 POTASSIUM 4.1 mmol/L 3.5-5.3 CHLORIDE 104 mmol/L 98-110 CARBON DIOXIDE 28 mmol/L 20-32 CALCIUM 9.7 mg/dL 8.6-10.2 PROTEIN, TOTAL 7.7 g/dL 6.1-8.1 ALBUMIN 5.2 g/dL 3.6-5.1 GLOBULIN 2.5 g/dL (calc) 1.9-3.7 ALBUMIN/GLOBULIN RATIO 2.1 (calc) 1.0-2. 5 BILIRUBIN, TOTAL 0.5 mg/dL 0.2-1.2 ALKALINE PHOSPHATASE 82 U/L 31-125 AST 39 U/L 10-30 ALT 52 U/L 6-29 TSH - 10/31/19 08:11 TSH 58.95 mIU/L NRG Encounters ACCT No. Visit Date/Time Discharge Status Pt. Type Provider Facility Loc./Unit Complaint [id number] 11/13/2019 11:20:00 11/13/2019 23:59: 59 [facility] [id number] 10/31/2019 08:00:00 Document Registration [id number] 08/27/2018 16:40:00 Document Registration [id number] 09/29/2019 11:56:00 020 23:59:59 CLS Outpatient BRADY ROSS APRN [facility] LAB FS MUSCLE CRAMP,FATIGUE [id number] 10/26/2018 21:33:00 019 01:43:00 DIS Outpatient DOMINIC CIFUENTES, JESSCIA Dillon [facility] ER FS CHEST PAIN [id number] 06/03/2018 08:22:00 13:47:00 DIS Outpatient YULIYA HUGHES DO [facility] SDC BILIARY DYSKENESIA [id number] 05/31/2018 12:38:00 23:59:59 CLS Outpatient YULIYA HUGHES DO [facility] PREOP LAP TWAN [id number] 05/30/2018 10:38:00 23:59:59 CLS Outpatient HUGHES YULIAY LOUIS [facility] CARD EPIGASTRIC ABDOMINAL PA IN [id number] 05/29/2018 08:13:00 23:59:59 CLS Outpatient DEVYN CORCORAN [facility] RAD RUQ PAIN [id number] 05/28/2018 17:42:00 21:09:00 DIS Emergency DEVYN CORCORAN [facility] ER GALLBLADDER PAIN [id number] 12/26/2013 20:38:00 014 18:36:00 DIS Outpatient MICHAEL CIFUENTES, MILADY Schafer [facility] CATH CHEST PAIN [id number] 11/17/2019 10:20:[address] Emergency NATHAN ALBERTO DO [facility] ER FS LT ELBOW INJ
--- OUTSIDE RECORDS SUMMARY | 2019-11-17 10:49 | XMS REPORT ---
Author Author Rebecca Melgar Organization [facility] Address [address] [place] [address] Care Team Providers Care Field Sales Engineer Name Role Phone NISA Melgar Unavailable PROBLEMS Type Condition ICD9-CM Code AUP31-ML Code Onset Dates Condition S tatus SNOMED Code Problem Hyperlipidemia E78.5 Mar, Active 55 086622 Problem WI (myocardial infarction) I21.9 Mar, Active 37769723 Problem Generalized anxiety disorder F41.1 08 Mar, 201 0 Active 66055680 Problem Bipolar affective disorder F31.9 Mar, Active 26523220 Problem Gastroesophageal reflux disease, esophagitis pre sence not specified K21.9 Active 949483526 Problem Migraine without status migr ainosus, not intractable, unspecified migraine type G43.909 Active 19639000 Problem Depression F32.9 Mar, Active 660234 005 Problem Other chronic pain G89.29 Active 8 5931708 Problem CAD (coronary artery disease) I25.10 Mar, 10 Active 01277998 Problem Coronary artery disease invo lving [place] coronary artery of [place] heart without angina pectoris I25.10 Active 1641 524097195 Problem Diffuse cystic mastopathy of left breast N60.12 Active 68297223 Problem Diffuse cystic mastopathy of right breast N60.11 Active [id number] Problem Seasonal allergic rhinitis, unspecified trigger J3 0.2 Active 156673855 ALLERGIES Substance Reaction Event Type Date Status TraMADol HCl ER Unknown Drug Allergy Jul, Active Tylenol itching Drug Allergy Jul, Active ENCOUNTERS Encounter Location Date Diagnosis [facility] [address] [id number] [place] [address] Sep, Muscle cramp R25.2 and Fatig ue, unspecified type R53.83 [facility] [place] [address] [facility] [id number] [address] [address] Sep, [facility] [place] [address] [facility] [id number] [address] [place] [address] Jul, [facility] [address] [id number] [place] [address] May, [address] [id number] [place] [address] May, Depression F32.9 ; Migraine without status migrainosus, not intractable, unspecified migraine type G43.909 ; Other chronic pain G89.29 and Low back pain M54.5 [facility] [place] [address] [facility] [id number] [address] [place] [id number] Mar, [facility] [address] [id number] [place] [address] August, [facility] [address] [id number] [place] [address] August, [address] [id number] [address] August, Pharyngitis, unspecified jd ology J02.9 ; Vaginal discharge N89.8 ; Aphthous stomatitis K12.0 and Seasonal allergic rhinitis, unspecified trigger J30.2 [facility] [address] [id number] [place] [address] Jul, Seasonal allergic rhinitis, unspecified trigger J30.2 and Sore throat J02.9 [facility] [address] [id number] [place] [address] Jul, Diffuse cystic mastopathy of left breast N60.12 ; Diffuse cystic mastopathy of right breast N60.11 and Bilateral acute serous otitis media, recurrence not specified H65.03 [facility] [address] [id number] [place] [address] May, Epigastric pain R10.13 ; Gas troesophageal reflux disease, esophagitis presence not specified K21.9 and Coronary artery disease involving [place] coronary artery of [place] heart without angina pectoris I25.10 [facility] [address] [id number] [place] [address] May, Epigastric pain R10.13 ; Fev er, unspecified fever cause R50.9 and Rash R21 [facility] [address] [id number] [place] [address] May, Epigastric pain R10.13 ; Fev er, unspecified fever cause R50.9 and Rash R21 [facility] [place] [address] [facility] [id number] [address] [place] [address] 05 May, 2018 [facility] [address] [id number] [place] [address] 04 May, 2018 Acute alcoholic gastritis wi thout hemorrhage K29.20 ; Epigastric abdominal pain R10.13 and Gastroesophageal reflux disease, esophagitis presence not specified K21.9 [facility] [place] [address] [facility] [id number] [address] [place] [address] Mar, [facility] [place] [address] [facility] [id number] [address] [place] [address] Apr, [facility] [place] [address] [facility] [id number] [address] [place] [address] Feb, [facility] [place] [address] [facility] [id number] [address] [place] [address] Feb, IMMUNIZATIONS No Known Immunizations SOCIAL HISTORY Never Assessed REASON FOR VISIT knots on breasts, bilat, one knot in left armpit-growing & more knots, noticed over a year, fluid in right ear PLAN OF CARE Activity Details Follow Up prn Reason: VITAL SIGNS Height 64.5 in 2018-07-09 Weight 117.5 lbs 2018-07-09 Temperature 99.7 degrees Fahrenheit 2018-07-09 BMI 19.86 kg/m2 2018-07-09 Blood pressure systolic 120 mmHg 2018-07-09 Blood pressure diastolic 74 mmHg 2018-07-09 MEDICATIONS Medication Instructions Dosage Frequency Start Date End Date Duration S lacey Moy 7.5-325 MG Orally every 6 hrs 1 tablet as needed 6h May, 019 4 days Active Carafate 1 GM Orally 4 times a day 1 tablet on an empty stomach 6h May, 30 day(s) Active Nasacort Allergy 24HR 55 mcg/act Nasally Once a day 1 spray in each nostril 24h Jul, 30 day(s) Active Methocarbamol 750 MG Orally every 4 hrs 2 tablet 4h 30 day(s) Active Zyrtec Allergy 10 mg Orally Once a day 1 tablet 24h Jul, 30 day(s) Active Pantoprazole Sodium 40 MG Orally Once a day 1 tablet 24h May 30 day(s) Active RESULTS No Results PROCEDURES No Known procedures INSTRUCTIONS MEDICATIONS ADMINISTERED No Known Medications MEDICAL (GENERAL) HISTORY Type Description Date Medical History coronary artery disease Medical History fibromyalgia Medical History PTSD Surgical History hysterectomy Surgical History dilatation and curettage x2 Surgical History hemorrhoidectomy Surgical History appendectomy Surgical History endometrial surgeries x3 Surgical History heart surgeries, x4 Surgical History lumpectomy, right breast Surgical History colysystectomy Hospitalization History hysterectomy Hospitalization History appendectomy Hospitalization History heart surgeries
[2019-11-17] MEDS ORDERED: HYDR-3812 PO (11:21)
--- NOTE | 2019-11-17 11:27 | Diagnostic Imaging Report ---
EXAMINATION: Left elbow, 3 views INDICATION: Traumatic left elbow pain. Patient reports pain after fall. COMPARISON: None available. FINDINGS: There is a curvilinear ossific density adjacent to the lateral aspect of the ulna near the radial notch and anterior to the capitellum. No other fracture or acute osseous abnormality is identified. There is a moderate elbow joint effusion. IMPRESSION: Ossific density suspicious for fracture either involving the proximal ulna or distal humerus, with associated elbow joint effusion. Report was called to Dr. Woods [facility] by fabian at 11:26PM. Dictated by: Dictated on workstation # [id number]
[2019-11-17 11:32] VITALS: BP 138/73
== END 2019-11-17 11:32 | disposition home or self-care (01) ==
LOC: EDUNIT# 10:18 → ER FS 10:20
DX: S52.002A Unspecified fracture of upper end of left ulna, initial encounter for closed fracture (principal); K21.0 Gastro-esophageal reflux disease with esophagitis; G89.29 Other chronic pain; M54.9 Dorsalgia, unspecified; Z88.5 Allergy status to narcotic agent; Z88.6 Allergy status to analgesic agent; Z79.82 Long term (current) use of aspirin; Z87.891 Personal history of nicotine dependence; Z95.5 Presence of coronary angioplasty implant and graft; Z85.41 Personal history of malignant neoplasm of cervix uteri; Z82.49 Family history of ischemic heart disease and other diseases of the circulatory system; W01.0XXA Fall on same level from slipping, tripping and stumbling without subsequent striking against object, initial encounter; Y92.89 Other specified places as the place of occurrence of the external cause
CPT/HCPCS: 73080; A4565

== ENCOUNTER → 2019-12-01 | Outpatient (CLI) | payer MEDICAID ==
[~2019-12-01] MED LIST changes: +HYDR-3812 PO
--- NOTE | 2019-12-01 11:58 | Diagnostic Imaging Report ---
INDICATION: Coronoid process fracture. TIME OF EXAM: 10:35 AM Correlation is made with prior radiograph from 11/17/2019. A curvilinear opacity in the region of the coronoid process similar in appearance to prior exam. Elbow alignment is normal. Joint spaces are maintained. There continues to be some prominence of the anterior fat pad, indicative of a small effusion. No other fracture seen. IMPRESSION: Overall stable appearance to left elbow when compared to examination from 11/17/2019. Dictated by: Dictated on workstation # [id number]
== END ==
LOC: ORTHO 10:12
PROVIDERS: ATTEND Orthopaedic Surgery
DX: S52.045A Nondisplaced fracture of coronoid process of left ulna, initial encounter for closed fracture (principal)
CPT/HCPCS: 73080; G0463; 99203

== ENCOUNTER 2020-01-14 03:57 | Emergency (ER) | payer MEDICAID ==
[~2020-01-14] VITALS: Ht 165.1 cm; Wt 47.4 kg
[~2020-01-14 03:57] MED LIST changes: -HYDR-3812 PO
--- NOTE | 2020-01-14 04:28 | ED EENT ---
History of Present Illness General Chief Complaint: Dental Problems/Pain Stated Complaint: DENTAL PAIN Nursing Triage Note: Pt c/o dental pain to bottom right jaw, reports the tooth is cracked. Source: patient Exam Limitations: no limitations History of Present Illness Date Seen by Provider: Jan 14, 2020 Time Seen by Provider: 04:15 Initial Comments The patient is a 39-year-old female presents for evaluation of right lower pos terior dental pain. She states the tooth is been bothering her for several months but guarded to hurt significantly last night. She applied a temporary fill her to the tooth which has helped in the past but did not help very much night. She states that she tried to see a dentist in the past but states that she could not afford the care. She denies fevers or chills, trismus, difficulty swallowing, facial swelling, nausea or vomiting, or any other complaints. She tells that she is allergic to Tylenol but then she tells me that she tried to take some Tylenol PM earlier today which normally helps her tooth pain but did not help this time. Also she has taken [place] in the past without any complaints so is not actually allergic to Tylenol. Timing/Duration: gradual Severity: moderate Prearrival Treatment: over the counter meds Associated Symptoms: tooth pain Allergies and Home Medications Allergies Coded Allergies: tramadol (Unverified Allergy, Severe, SEIZURE, 12/26/13) acetaminophen (Unverified Allergy, Unknown, 12/26/13) Home Medications Aspirin 81 Mg Tablet.dr, 81 MG PO DAILY Prescribed by: MILADY RODRIGUEZ on 12/27/13 170 Famotidine 20 Mg Tablet, 1 EACH PO BID Prescribed by: MILADY RODRIGUEZ on 12/27/13 1708 Hydrocodone Bit/Acetaminophen 1 Tab Tab, 1-2 TAB PO Q6H PRN for PAIN-MODERATE Prescribed by: YULIYA HUGHES on 06/03/18 1112 Hydrocodone/Acetaminophen 1 Each Tablet, 1 EACH PO Q4H PRN for PAIN-MODERATE (5- 7) Prescribed by: DOLLY EVANS on 11/17/19 1121 Methocarbamol 750 Mg Tablet, 750 MG PO Q6-8HR, (Reported) Patient Home Medication List Home Medication List Reviewed: Yes Review of Systems Review of Systems Constitutional: no symptoms reported Eyes: No Symptoms Reported Ears: No Symptoms Reported Nose: no symptoms reported Mouth: pain Throat: no symptoms reported Respiratory: no symptoms reported Cardiovascular: no symptoms reported Gastrointestinal: no symptoms reported Musculoskeletal: no symptoms reported Skin: no symptoms reported Neurological: No Symptoms Reported Hematologic/Lymphatic: No Symptoms Reported Immunological/Allergic: no symptoms reported All Other Systems Reviewed Negative Unless Noted: Yes Past Uhmlavg-[place]ys[place]-Zcikut Hx Past Med/Social Hx: Reviewed Nursing Past Med/Soc Hx Patient Social History Alcohol Beverage of Choice: Beer Drug of Choice: Marijuana Type Used: Electronic/Vapor Former Smoker, Quit: Apr 02, 2018 2nd Hand Smoke Exposure: No Recent Foreign Travel: No Contact w/Someone Who Travel: No Recent Infectious Disease Expo: No Recent Hopitalizations: No Immunizations Up To Date Tetanus Booster (TDap): Unknown Date of Influenza Vaccine: Dec 26, 2013 Seasonal Allergies Seasonal Allergies: No Past Medical History Surgeries: Yes (appy, hemmroidectomy, DNC X2, CARDIAC CATH ) Appendectomy Respiratory: Yes Chronic Bronchitis Cardiac: Yes (STENT PLACED X1) Neurological: Yes (last seizure jan 2013) : No Reproductive Disorders: Yes (ENDOMETROSIS) Female Reproductive Disorders: Endometriosis 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 Sexually Transmitted Disease: No HIV/AIDS: No Gastrointestinal: Yes (APPENDIX REMOVED) Gastroesophageal Reflux, Esophagitis Musculoskeletal: No Arthritis, Chronic Back Pain Endocrine: Yes (hypoglycemia, ) Cancer: Yes Cervical Psychosocial: Yes Anxiety, Bipolar, Personality Disorder Integumentary: No Blood Disorders: No Family Medical History Arthritis 19 MOTHER Asthma 19 MOTHER Cardiovascular disease 19 MOTHER Diabetes mellitus 19 MOTHER Headache disorder 19 FATHER 19 MOTHER G8 SISTER Hypertension 19 MOTHER Respiratory disorder 19 MOTHER No Family History of: AIDS Abdominal aortic aneurysm [place]'s disease Alcoholism Alzheimer's disease Aphasia Cancer of mouth Cataracts Colon cancer Completed stroke Congenital disease Congenital heart disease Coronary thrombosis Cystic fibrosis Deafness or hearing loss Dementia Drug abuse Dysphasia Fibrocystic disease of breast Gastroenteritis Glaucoma Hypercholesterolemia Infertility Kidney disease Myocardial infarction Neoplasm Not obtainable due to adoption Osteoporosis Parkinson's disease Prostate cancer Psychosocial problem Seizure disorder Severe allergy Thyroid disease Tuberculosis Visual disorder Physical Exam Vital Signs Vital Signs - First Documented 01/14/20 04:14 Temp 36.4 Pulse 109 Resp 18 B/P (MAP) 160/90 (113) Pulse Ox 97 O2 Delivery Room Air Height, Weight, BMI Height: 5'5.00" Weight: 110lbs. 0oz. 49.438224xl; 17.00 BMI Method:Stated General Appearance: WD/WN, no apparent distress Eyes: bilateral eye normal inspection, bilateral eye PERRL, bilateral eye EOMI Nose: normal inspection Mouth/Throat: No excessive drooling, No foreign body; other (right lower most posterior molar with a temporary filling applied topically, mild gingival inflammation without abscess, no trismus, no uvular swelling, no oropharyngeal swelling) Neck: non-tender, full range of motion, supple, normal inspection Cardiovascular: regular rate, rhythm, no edema, no JVD Respiratory: lungs clear, normal breath sounds, no respiratory distress, no accessory muscle use 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 She'll go home with a prescription for Penicillin VK to prevent abscess. Advised the patient to return for new or worsening symptoms. The patient expresses verbal understanding and agreement with the plan and is stable for discharge. Departure Impression Primary Impression: Pain, dental Disposition: 01 HOME, SELF-CARE Condition: Stable Departure-Patient Inst. Decision time for Depature: 04:30 Referrals: DENTAL GROUP Patient Instructions: Dental Pain (DC) Add. Discharge Instructions: Take the prescribed medicine as directed. Return to the emergency Department immediately for new or worsening symptoms. Follow-up with your dentist today. Scripts Hydrocodone/Acetaminophen ([place] 7.5-325 Tablet) 1 Each Tablet 1 TAB PO Q4H PRN for PAIN-MODERATE (5-7) MDD 6 TABS for 3 Days, #12 TAB Prov: DOLLY EVANS DO 01/14/20 Penicillin V Potassium (Penicillin V Potassium) 500 Mg Tablet 500 MG PO Q6H for 10 Days, #40 TAB Prov: DOLLY EVANS DO 01/14/20 DOLLY EVANS DO Jan 14, 2020 04:28
[2020-01-14] MEDS ORDERED: KETOROLAC 60 MG/2 ML VIAL IM ONE (04:30)
[2020-01-14] MEDS ORDERED: PENI500T PO (04:32)
[2020-01-14] MEDS ORDERED: HYDR-4227 PO (04:32)
[2020-01-14] MEDS ORDERED: HYDROcodone/APAP 7.5 MG/325 MG (LORTAB, LORCET PLUS) TABLET PO ONE (04:45)
[2020-01-14 04:46] VITALS: BP 160/90
== END 2020-01-14 04:46 | disposition home or self-care (01) ==
LOC: EDUNIT# 03:57 → ER FS 04:00
DX: K08.89 Other specified disorders of teeth and supporting structures (principal); K21.00 Gastro-esophageal reflux disease with esophagitis, without bleeding; G89.29 Other chronic pain; M54.9 Dorsalgia, unspecified; Z85.41 Personal history of malignant neoplasm of cervix uteri; Z88.5 Allergy status to narcotic agent; Z88.6 Allergy status to analgesic agent; Z79.82 Long term (current) use of aspirin; Z87.891 Personal history of nicotine dependence; Z95.5 Presence of coronary angioplasty implant and graft; Z82.49 Family history of ischemic heart disease and other diseases of the circulatory system
CPT/HCPCS: 99284

== ENCOUNTER 2020-03-14 07:56 | Emergency (ER) | payer MEDICAID ==
[~2020-03-14] VITALS: Ht 162 cm; Wt 63.0 kg
[~2020-03-14 07:56] MED LIST changes: +HYDR-4227 PO; +PENI500T PO
[2020-03-14 08:12] VITALS: BP 152/79
[2020-03-14] MEDS ORDERED: ORPHENADRINE 60 MG/2 ML (NORFLEX) AMP (ED ONLY) IM ONE (08:15)
[2020-03-14] MEDS ORDERED: CLIN300C12 PO (08:38)
--- NOTE | 2020-03-14 08:38 | ED EENT ---
History of Present Illness General Chief Complaint: Oral/Throat Problems Stated Complaint: NECK SWELLING Nursing Triage Note: PT PRESENTS TO ED WITH COMPLAINTS OF L SIDED JAW/NECK SWELLING STARTING LAST NIGHT. PT REPORTS SLIGHTLY TENDER TO PALPATION. Source: patient Exam Limitations: no limitations History of Present Illness Date Seen by Provider: Mar 14, 2020 Time Seen by Provider: 07:58 Initial Comments This 39-year-old woman presents to the emergency room with a swelling and tenderness beneath the angle of the jaw on the left. She noticed this yes terday. She denies any fever or other symptoms such as cough, shortness of breath, sore throat, dental pain, etc. She has been treated for dental pain in the past but does not have that now. Allergies and Home Medications Allergies Coded Allergies: tramadol (Unverified Allergy, Severe, SEIZURE, 12/26/13) acetaminophen (Unverified Allergy, Unknown, 12/26/13) Home Medications Aspirin 81 Mg Tablet.dr, 81 MG PO DAILY Prescribed by: MILADY RODRIGUEZ on 12/27/13 1708 Clindamycin HCl 300 Mg Capsule, 300 MG PO QID Prescribed by: DRAKE BRITO on 03/14/20 0838 Famotidine 20 Mg Tablet, 1 EACH PO BID Prescribed by: MILADY RODRIGUEZ on 12/27/13 1708 Hydrocodone Bit/Acetaminophen 1 Tab Tab, 1-2 TAB PO Q6H PRN for PAIN-MODERATE Prescribed by: YULIYA HUGHES on 06/03/18 1112 Hydrocodone/Acetaminophen 1 Each Tablet, 1 EACH PO Q4H PRN for PAIN-MODERATE (5- 7) Prescribed by: DOLLY EVANS on 11/17/19 1121 Hydrocodone/Acetaminophen 1 Each Tablet, 1 TAB PO Q4H PRN for PAIN-MODERATE (5- 7) Prescribed by: DOLLY EVANS on 01/14/20 043 Methocarbamol 750 Mg Tablet, 750 MG PO Q6-8HR, (Reported) Penicillin V Potassium 500 Mg Tablet, 500 MG PO Q6H Prescribed by: DOLLY EVANS on 01/14/20 043 Patient Home Medication List Home Medication List Reviewed: Yes Review of Systems Review of Systems Constitutional: no symptoms reported Eyes: No Symptoms Reported Ears: No Symptoms Reported Nose: no symptoms reported Mouth: see HPI Throat: see HPI Respiratory: no symptoms reported Cardiovascular: no symptoms reported Gastrointestinal: no symptoms reported : No Musculoskeletal: no symptoms reported Skin: no symptoms reported Neurological: No Symptoms Reported Hematologic/Lymphatic: No Symptoms Reported Immunological/Allergic: no symptoms reported Past Izwjktw-Dkmifx-Kufhxj Hx Past Med/Social Hx: Reviewed Nursing Past Med/Soc Hx Patient Social History Alcohol Use: Denies Use Number of Drinks Today: AA Alcohol Beverage of Choice: Beer Recreational Drug Use: No Drug of Choice: Marijuana Smoking Status: Former Smoker Type Used: Electronic/Vapor Former Smoker, Quit: Apr 02, 2018 2nd Hand Smoke Exposure: No Recent Foreign Travel: No Contact w/Someone Who Travel: No Recent Infectious Disease Expo: No Recent Hopitalizations: No Physical Abuse: No Sexual Abuse: No Mistreated: No Fear: No Immunizations Up To Date Tetanus Booster (TDap): Unknown Date of Influenza Vaccine: Dec 26, 2013 Seasonal Allergies Seasonal Allergies: No Past Medical History Surgeries: Yes Section Respiratory: Yes Chronic Bronchitis Cardiac: No Neurological: No Reproductive Disorders: Yes (ENDOMETROSIS) Female Reproductive Disorders: Endometriosis 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 Sexually Transmitted Disease: No HIV/AIDS: No Genitourinary: No Gastrointestinal: Yes Gastroesophageal Reflux, Esophagitis Musculoskeletal: Yes Arthritis, Chronic Back Pain Endocrine: Yes Hypothyroidsim HEENT: No Cancer: Yes Cervical Psychosocial: Yes Anxiety Integumentary: No Blood Disorders: No Family Medical History Arthritis 19 MOTHER Asthma 19 MOTHER Cardiovascular disease 19 MOTHER Diabetes mellitus 19 MOTHER Headache disorder 19 FATHER 19 MOTHER G8 SISTER Hypertension 19 MOTHER Respiratory disorder 19 MOTHER No Family History of: AIDS Abdominal aortic aneurysm [place]'s disease Alcoholism Alzheimer's disease Aphasia Cancer of mouth Cataracts Colon cancer Completed stroke Congenital disease Congenital heart disease Coronary thrombosis Cystic fibrosis Deafness or hearing loss Dementia Drug abuse Dysphasia Fibrocystic disease of breast Gastroenteritis Glaucoma Hypercholesterolemia Infertility Kidney disease Myocardial infarction Neoplasm Not obtainable due to adoption Osteoporosis Parkinson's disease Prostate cancer Psychosocial problem Seizure disorder Severe allergy Thyroid disease Tuberculosis Visual disorder Physical Exam Vital Signs Vital Signs - First Documented 03/14/20 08:12 Temp 36.6 Pulse 64 Resp 18 B/P (MAP) 152/79 (103) Pulse Ox 95 Height, Weight, BMI Height: 5'5.00" Weight: 110lbs. 0oz. 49.596027ir; 24.00 BMI Method:Stated General Appearance: WD/WN, no apparent distress Eyes: bilateral eye normal inspection, bilateral eye PERRL, bilateral eye EOMI Ears: bilateral ear auricle normal, bilateral ear canal normal, bilateral ear TM normal Nose: normal inspection Mouth/Throat: normal mouth inspection, pharynx normal Neck: supple, other (There is area of fullness inferior to the angle of the left jaw. This area is mildly tender. There is not a well demarcated discrete nose to it. 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 It could be lymphadenitis secondary to dental infection. It could be a sialolithiasis or infected submandibular salivary gland. I prescribed clindamycin as an initial first step in treatment. Return precautions and follow-up instructions were discussed with the patient. Departure Impression Primary Impression: Neck swelling Additional Impression: Neck pain Disposition: 01 HOME, SELF-CARE Condition: Improved Departure-Patient Inst. Decision time for Depature: 08:36 Ref[place]: [facility] [place] Primary Care Physician KAILEY UNDERWOOD APRN (Family) Primary Care Physician Patient Instructions: Salivary Gland Infection Add. Discharge Instructions: The exact cause of your symptoms is uncertain but it may be related to inflamed lymph node from an oral infection or a stone or infection in the salivary gland. We will treat with antibiotics and observe. If your swelling and pain are not completely resolved by the time you finish your antibiotic prescription, please follow-up promptly with your primary care provider. Return to the emergency room if you have worsening symptoms including fever. Call if you have any further questions or concerns. Start your antibiotic today after leaving the emergency room. Tylenol and ibuprofen may be used for pain. Sucking on lemon drops or other sour candies to help stimulate salivary production may be helpful. All discharge instructions reviewed with patient and/or family. Voiced understanding. Scripts Clindamycin HCl (Clindamycin HCl) 300 Mg Capsule 300 MG PO QID, #28 CAP Prov: BRUEGGEMANN,DRAKE T MD 03/14/20 Copy Copies To 1: SUSU MCQUEEN JOSHUA T MD Mar 14, 2020 08:38
== END 2020-03-14 08:42 | disposition home or self-care (01) ==
LOC: EDUNIT# 07:56 → ER 07:58
DX: R22.1 Localized swelling, mass and lump, neck (principal); M54.2 Cervicalgia; G89.29 Other chronic pain; M54.9 Dorsalgia, unspecified; K21.9 Gastro-esophageal reflux disease without esophagitis; Z82.49 Family history of ischemic heart disease and other diseases of the circulatory system; Z83.3 Family history of diabetes mellitus; Z82.61 Family history of arthritis; Z85.41 Personal history of malignant neoplasm of cervix uteri; Z87.891 Personal history of nicotine dependence; Z88.5 Allergy status to narcotic agent; Z88.6 Allergy status to analgesic agent; Z79.82 Long term (current) use of aspirin; Z79.891 Long term (current) use of opiate analgesic
CPT/HCPCS: 99282

== ENCOUNTER 2020-09-16 09:22 | Emergency (ER) | payer MEDICAID ==
[~2020-09-16] VITALS: Ht 165.1 cm; Wt 48.6 kg
[~2020-09-16 09:22] MED LIST changes: +CLIN300C12 PO; +METH-732 PO; -METH750T3 PO
[2020-09-16] MEDS ORDERED: ASPIRIN 81 MG CHEW (CHILDREN'S ASA) PO ONE (09:30)
--- NOTE | 2020-09-16 09:30 | ED Chest Pain ---
General Stated Complaint: CHEST PAIN Source: patient Exam Limitations: no limitations History of Present Illness Date Seen by Provider: Sep 16, 2020 Time Seen by Provider: 09:27 Initial Comments 40-year-old female with history of [place] and CAD with left heart stent 15 years ago. Presents with chest pain intermittent since yesterday, relieved with nitroglycerin 4 times yesterday. Saw her PCP this morning and relayed this history and was appropriately sent to the ER. Today she has not taken nitro but she did wake up with chest pain and persisted on arrival to the ED. Denies any recent illness, fever chills or cough. Denies palpitation or swelling of extremities. She does have some upper abdominal discomfort and nausea without vomiting. 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 Allergies and Home Medications Allergies Coded Allergies: tramadol (Unverified Allergy, Severe, SEIZURE, 12/26/13) acetaminophen (Unverified Allergy, Unknown, 12/26/13) Home Medications Aspirin 81 Mg Tablet.dr, 81 MG PO DAILY Prescribed by: MILADY RODRIGUEZ on 12/27/13 1708 Clindamycin HCl 300 Mg Capsule, 300 MG PO QID Prescribed by: DRAKE BRITO on 03/14/20 0838 Famotidine 20 Mg Tablet, 1 EACH PO BID Prescribed by: MILADY RODRIGUEZ on 12/27/13 1708 Famotidine 20 Mg Tablet, 20 MG PO BID Prescribed by: JUAN LUIS OH on 09/16/20 1030 Hydrocodone Bit/Acetaminophen 1 Tab Tab, 1-2 TAB PO Q6H PRN for PAIN-MODERATE Prescribed by: YULIYA HUGHES on 06/03/18 1112 Hydrocodone/Acetaminophen 1 Each Tablet, 1 EACH PO Q4H PRN for PAIN-MODERATE (5- 7) Prescribed by: DOLLY EVANS on 11/17/19 1121 Hydrocodone/Acetaminophen 1 Each Tablet, 1 TAB PO Q4H PRN for PAIN-MODERATE (5- 7) Prescribed by: DOLLY EVANS on 01/14/20 0432 Methocarbamol 750 Mg Tablet, 750 MG PO Q6-8HR, (Reported) Penicillin V Potassium 500 Mg Tablet, 500 MG PO Q6H Prescribed by: DOLLY EVANS on 01/14/20 0432 Sucralfate 1 Gm Tablet, 1 GM PO QIDACHS Prescribed by: JUAN LUIS OH on 09/16/20 1030 Patient Home Medication List Home Medication List Reviewed: Yes Review of Systems Review of Systems Constitutional: No dizziness, No fever, No malaise, No weakness EENTM: No Symptoms Reported Respiratory: Denies Cough, Denies Shortness of Air Cardiovascular: See HPI, Chest Pain; Denies Edema, Denies Lightheadedness, Denies Palpitations, Denies Syncope Gastrointestinal: Abdominal Pain; Denies Constipated, Denies Diarrhea, Denies Vomiting Musculoskeletal: No back pain, No joint pain, No muscle pain Skin: No change in color, No lesions, No lumps, No rash Psychiatric/Neurological: Denies Numbness, Denies Paresthesia, Denies Tremors, Denies Weakness Past Jvemvoe-Gwvvsi-Mpovxe Hx Past Med/Social Hx: Reviewed Nursing Past Med/Soc Hx Patient Social History Alcohol Beverage of Choice: Beer Drug of Choice: Marijuana Type Used: Electronic/Vapor Former Smoker, Quit: Apr 02, 2018 2nd Hand Smoke Exposure: No Recent Hopitalizations: No Immunizations Up To Date Tetanus Booster (TDap): Unknown Date of Influenza Vaccine: Dec 26, 2013 Seasonal Allergies Seasonal Allergies: No Past Medical History Surgeries: Yes Section Respiratory: Yes Chronic Bronchitis Cardiac: No Neurological: No Reproductive Disorders: Yes (ENDOMETROSIS) Female Reproductive Disorders: 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 Sexually Transmitted Disease: No HIV/AIDS: No Genitourinary: No Gastrointestinal: Yes Gastroesophageal Reflux, Esophagitis Musculoskeletal: Yes Arthritis, Chronic Back Pain Endocrine: Yes Hypothyroidsim HEENT: No Cancer: Yes Cervical Psychosocial: Yes Anxiety Integumentary: No Blood Disorders: No Family Medical History Arthritis 19 MOTHER Asthma 19 MOTHER Cardiovascular disease 19 MOTHER Diabetes mellitus 19 MOTHER Headache disorder 19 FATHER 19 MOTHER G8 SISTER Hypertension 19 MOTHER Respiratory disorder 19 MOTHER No Family History of: AIDS Abdominal aortic aneurysm [place]'s disease Alcoholism Alzheimer's disease Aphasia Cancer of mouth Cataracts Colon cancer Completed stroke Congenital disease Congenital heart disease Coronary thrombosis Cystic fibrosis Deafness or hearing loss Dementia Drug abuse Dysphasia Fibrocystic disease of breast Gastroenteritis Glaucoma Hypercholesterolemia Infertility Kidney disease Myocardial infarction Neoplasm Not obtainable due to adoption Osteoporosis Parkinson's disease Prostate cancer Psychosocial problem Seizure disorder Severe allergy Thyroid disease Tuberculosis Visual disorder Physical Exam Vital Signs Vital Signs - First Documented Capillary Refill : Height, Weight, BMI Height: 5'5.00" Weight: 110lbs. 0oz. [id number]; 24.00 BMI Method:Stated General Appearance: No Apparent Distress, WD/WN, Thin HEENT: PERRL/EOMI, Normal ENT Inspection Neck: Full Range of Motion, Non Tender, Supple Respiratory: Chest Non Tender, Lungs Clear, Normal Breath Sounds, No Accessory Muscle Use, No Respiratory Distress Cardiovascular: Regular Rate, Rhythm, No Edema, No JVD, Normal Peripheral Pulses Gastrointestinal: Normal Bowel Sounds, No Pulsatile Mass, Non Tender Extremity: Normal Capillary Refill, Normal Inspection, Normal Range of Motion, Non Tender Neurologic/Psychiatric: Alert, Oriented x3, No Motor/Sensory Deficits, Normal Mood/Affect Skin: Normal Color, Warm/Dry Progress/Results/Core Measures Results/Orders Lab Results Laboratory Tests Test 09/16/20 09:35 Range/Units White Blood Count 8.9 4.3-11.0 10^3/uL Red Blood Count 4.11 L 4.35-5.85 10^6/uL Hemoglobin 13.6 11.5-16.0 G/DL Hematocrit 40 35-52 % Mean Corpuscular Volume 97 80-99 FL Mean Corpuscular Hemoglobin 33 25-34 PG Mean Corpuscular Hemoglobin Concent 34 32-36 G/DL Red Cell Distribution Width 12.6 10.0-14.5 % Platelet Count 223 130-400 10^3/uL Mean Platelet Volume 10.2 7.4-10.4 FL Immature Granulocyte % (Auto) 0 % Neutrophils (%) (Auto) 69 42-75 % Lymphocytes (%) (Auto) 24 12-44 % Monocytes (%) (Auto) 6 0-12 % Eosinophils (%) (Auto) 1 0-10 % Basophils (%) (Auto) 1 0-10 % Neutrophils # (Auto) 6.1 1.8-7.8 X 10^3 Lymphocytes # (Auto) 2.1 1.0-4.0 X 10^3 Monocytes # (Auto) 0.5 0.0-1.0 X 10^3 Eosinophils # (Auto) 0.1 0.0-0.3 10^3/uL Basophils # (Auto) 0.1 0.0-0.1 10^3/uL Immature Granulocyte # (Auto) 0.0 0.0-0.1 10^3/uL Sodium Level 140 135-145 MMOL/L Potassium Level 3.8 3.6-5.0 MMOL/L Chloride Level 105 98-107 MMOL/L Carbon Dioxide Level 25 21-32 MMOL/L Anion Gap 10 5-14 MMOL/L Blood Urea Nitrogen 12 7-18 MG/DL Creatinine 0.70 0.60-1.30 MG/DL Estimat Glomerular Filtration Rate > 60 BUN/Creatinine Ratio 17 Glucose Level 96 70-105 MG/DL Calcium Level 9.5 8.5-10.1 MG/DL Corrected Calcium 8.5-10.1 MG/DL Total Bilirubin 0.2 0.1-1.0 MG/DL Aspartate Amino Transf (AST/SGOT) 52 H 5-34 U/L Alanine Aminotransferase (ALT/SGPT) 62 H 0-55 U/L Alkaline Phosphatase 134 40-136 U/L Troponin I < 0.30 <0.30 NG/ML Total Protein 7.3 6.4-8.2 GM/DL Albumin 4.6 H 3.2-4.5 GM/DL My Orders Orders - ROVENSTJUAN LUIS CACERES DO Ed Iv/Invasive Line Start (09/16/20 09:30) Chest 1 View Ap/Pa Only (09/16/20 09:30) Ekg Tracing (09/16/20 09:30) Cbc With Automated Diff (09/16/20 09:30) Comprehensive Metabolic Panel (09/16/20 09:30) Troponin I Fs (09/16/20 09:30) Aspirin Chewable Tablet (Baby Aspirin Ch (09/16/20 09:30) Famotidine Injection (Pepcid Injection) (09/16/20 10:30) Lidocaine 2% Viscous 15 Ml (Xylocaine Vi (09/16/20 10:30) Antacid Suspension (Mylanta Suspension (09/16/20 10:30) Medications Given in ED Current Medications Medications Dose Ordered Sig/Feliz Route Start Time Stop Time Status Last Admin Dose Admin Aspirin 324 mg ONCE ONCE PO 09/16/20 09:30 09/16/20 09:32 DC 09/16/20 09:51 324 MG Vital Signs/I&O 09/16/20 09/16/20 09:22 09:22 Temp 36.8 Pulse 60 Resp 16 B/P (MAP) 136/81 (99) Pulse Ox 97 O2 Delivery Room Air Room Air Progress Progress Note : Progress Note Patient still with some mild lower chest pain and on reexamination, mostly upper abdominal discomfort. Normal troponin after over 24 hours of this condition, discussed patient's lifestyle and diet. She is a non-smoker, but does drink a [address] Pepper almost daily. Advised she wean off of this this is likely causing her some gastritis. Patient given Pepcid IV as well as a GI cocktail. Will send home with prescription for Pepcid twice daily as well as Carafate for 10 days. She is advised to see her PCP in 1 week for reevaluation and return to the ER sooner if worse. Initial ECG Impression Date: Sep 16, 2020 Initial ECG Impression Time: 09:25 Initial ECG Rate: 60 Initial ECG Rhythm: Normal Sinus Initial ECG Intervals: Normal Initial ECG Impression: Normal Initial ECG Comparisson: No Previous ECG Available Diagnostic Imaging Diagonstic Imaging: Xray Plain Films/CT/US/NM/MRI: chest Comments EXAMINATION: Portable AP chest at 9:24 AM INDICATION: Chest pain The heart size is within normal limits and stable when compared to 10/27/2018. The lungs are clear. There is no sign of failure, pneumonia or pleural effusion. There are nodular densities overlying each lung base. These were also present on the prior exam and have not changed. I do suspect these are related to nipple shadows. The mediastinum is not widened. The osseous structures are intact. External cardiac monitoring electrodes are noted. IMPRESSION: There is no evidence for active disease. Dictated on workstation # [id number] Dict: 09/16/20 0941 Trans: 09/16/20 0951 OZ [id number] Interpreted by: JAVIER FITZGERALD MD Electronically signed by: Departure Impression Primary Impression: Chest pain Qualified Codes: R07.9 - Chest pain, unspecified Additional Impression: Epigastric abdominal pain Disposition: HOME, SELF-CARE Condition: Improved Departure-Patient Inst. Decision time for Depature: 10:32 Referrals: KAILEY UNDERWOOD APRN (PCP) Primary Care Physician [facility] (Family) Primary Care Physician Patient Instructions: Abdominal Pain, Adult ED, Gastritis ED Add. Discharge Instructions: See your PCP in 1 week. Follow up in the nearest ER if your symptoms are progressively worse. Stop drinking Dr Pepper. Sorry but it's horrible for you and very likely causing your stomach pain. Scripts Famotidine (Pepcid) 20 Mg Tablet 20 MG PO BID, #60 TAB Prov: JUAN LUIS OH DO 09/16/20 Sucralfate (Carafate) 1 Gm Tablet 1 GM PO YUE, #40 TAB Prov: JUAN LUIS OH DO 09/16/20 JUAN LUIS OH DO Sep 16, 2020 09:30
[2020-09-16 09:42] LABS: WHITE BLOOD COUNT 8.9 10^3/uL (4.3-11.0)
[2020-09-16 09:43] LABS: BASOPHILS % (AUTO) 1 % (0-10); EOSINOPHILS # (AUTO) 0.1 10^3/uL (0.0-0.3); EOSINOPHILS % (AUTO) 1 % (0-10); HEMATOCRIT 40 % (35-52); HEMOGLOBIN 13.6 G/DL (11.5-16.0); LYMPHOCYTES # (AUTO) 2.1 X 10^3 (1.0-4.0); LYMPHOCYTES % (AUTO) 24 % (12-44); MEAN CORPUSCULAR HEMOGLOBIN 33 PG (25-34); MEAN CORPUSCULAR HGB CONC 34 G/DL (32-36); MEAN CORPUSCULAR VOLUME 97 FL (80-99); MEAN PLATELET VOLUME 10.2 FL (7.4-10.4); MONOCYTES # (AUTO) 0.5 X 10^3 (0.0-1.0); MONOCYTES % (AUTO) 6 % (0-12); NEUTROPHILS # (AUTO) 6.1 X 10^3 (1.8-7.8); NEUTROPHILS % (AUTO) 69 % (42-75); PLATELET COUNT 223 10^3/uL (130-400)
[2020-09-16 09:44] LABS: BASOPHILS # (AUTO) 0.1 10^3/uL (0.0-0.1)
--- NOTE | 2020-09-16 09:52 | Diagnostic Imaging Report ---
EXAMINATION: Portable AP chest at 9:24 AM INDICATION: Chest pain The heart size is within normal limits and stable when compared to 10/27/2018. The lungs are clear. There is no sign of failure, pneumonia or pleural effusion. There are nodular densities overlying each lung base. These were also present on the prior exam and have not changed. I do suspect these are related to nipple shadows. The mediastinum is not widened. The osseous structures are intact. External cardiac monitoring electrodes are noted. IMPRESSION: There is no evidence for active disease. Dictated by: Dictated on workstation # [id number]
[2020-09-16 10:07] LABS: ALANINE AMINOTRANSFERASE 62 U/L (0-55); ALKALINE PHOSPHATASE 134 U/L (40-136); BILIRUBIN,TOTAL 0.2 MG/DL (0.1-1.0); BUN/CREATININE RATIO 17; CALCIUM 9.5 MG/DL (8.5-10.1); CARBON DIOXIDE 25 MMOL/L (21-32); CHLORIDE 105 MMOL/L (98-107); GFR ESTIMATED > 60; GLUCOSE 96 MG/DL (70-105); POTASSIUM 3.8 MMOL/L (3.6-5.0); SODIUM 140 MMOL/L (135-145); TOTAL PROTEIN 7.3 GM/DL (6.4-8.2)
[2020-09-16 10:08] LABS: ALBUMIN 4.6 GM/DL (3.2-4.5)
[2020-09-16] MEDS ORDERED: FAMOTIDINE 20MG/2ML IV (PEPCID) IVP ONE (10:30)
[2020-09-16] MEDS ORDERED: FAMO-119 PO (10:30)
[2020-09-16] MEDS ORDERED: LIDOCAINE 2% VISCOUS 15 ML UDC PO ONE (10:30)
[2020-09-16] MEDS ORDERED: SUCR1TAB36 PO (10:30)
[2020-09-16] MEDS ORDERED: ANTACID SUSP 30 ML UDC (MYLANTA) PO ONE (10:30)
[2020-09-16 11:08] VITALS: BP 157/72
[2020-09-16] MEDS ORDERED: HYDR50TA76 (11:36)
[2020-09-16] MEDS ORDERED: BUSP5TAB59 (11:36)
[2020-09-16] MEDS ORDERED: Metoprolol (11:36)
[2020-09-16] MEDS ORDERED: LEVO112T55 (11:36)
[2020-09-16] MEDS ORDERED: LISI-729 (11:36)
== END 2020-09-16 11:08 | disposition home or self-care (01) ==
LOC: EDUNIT# 09:22 → ER FS 09:24
DX: R07.9 Chest pain, unspecified (principal); R10.13 Epigastric pain; K21.9 Gastro-esophageal reflux disease without esophagitis; G89.29 Other chronic pain; M54.9 Dorsalgia, unspecified; Z88.5 Allergy status to narcotic agent; Z87.891 Personal history of nicotine dependence; Z79.899 Other long term (current) drug therapy; Z79.82 Long term (current) use of aspirin; Z79.891 Long term (current) use of opiate analgesic
CPT/HCPCS: 36415; 71045; 80053; 84484; 85025; 93005

== ENCOUNTER 2020-11-01 09:34 | Emergency (ER) | payer MEDICAID ==
[~2020-11-01] VITALS: Ht 165.1 cm; Wt 49.1 kg
[~2020-11-01 09:34] MED LIST changes: +BUSP5TAB59; +FAMO-119 PO; +HYDR50TA76; +LEVO112T55; +LISI-729; +Metoprolol; +SUCR1TAB36 PO
[2020-11-01 09:43] VITALS: BP 143/87
[2020-11-01] MEDS ORDERED: ORPHENADRINE 60 MG/2 ML (NORFLEX) AMP (ED ONLY) IM ONE (10:30)
[2020-11-01] MEDS ORDERED: KETOROLAC 60 MG/2 ML VIAL IM ONE (10:30)
--- NOTE | 2020-11-01 10:32 | ED Lower Extremity ---
General Chief Complaint: Lower Extremity Stated Complaint: RT LEG PAIN Nursing Triage Note: Pt presents ambulatory to ED reporting Sciatica like pain down right leg from DDD from back. Pt has been on Methocarbamol 750mg 90 day suppy Rx 08/10/20 and is out, next appt 11/09/20. Source: patient Exam Limitations: no limitations History of Present Illness Date Seen by Provider: Nov 01, 2020 Time Seen by Provider: 10:00 Initial Comments Patient is 40-year-old female with chronic neck and back pain/sciatica who presents with poorly controlled sciatica pain after running out of her muscle relaxants several days ago. Patient is prescribed Soma and is not scheduled to have her medication refilled for 1 week. Pain is described as sharp, intense rated moderate and is worse with palpation and movement and ambulation. Pain radiates above the knee. She is able to ambulate. No loss of bowel or bladder function. No saddle anesthesia or incontinence. No other acute symptoms or complaint. Patient does take Tylenol in addition to Soma. Patient's most recent MRI was approximately 3 years ago. No other acute symptoms or complaints Onset: just prior to arrival Method of Injury: other Allergies and Home Medications Allergies Coded Allergies: tramadol (Unverified Allergy, Severe, SEIZURE, 12/26/13) Home Medications Aspirin 81 Mg Tablet.dr, 81 MG PO DAILY Prescribed by: MILADY RODRIGUEZ on 12/27/13 1708 Last Action: Last Taken Edited Famotidine 20 Mg Tablet, 20 MG PO BID Prescribed by: JUAN LUIS OH on 09/16/20 1030 Last Action: Last Taken Edited Methocarbamol 750 Mg Tablet, 750 MG PO Q6-8HR, (Reported) Last Action: Last Taken Edited Patient Home Medication List Home Medication List Reviewed: Yes Review of Systems Constitutional: see HPI EENTM: see HPI Respiratory: see HPI Gastrointestinal: see HPI Musculoskeletal: back pain Skin: no symptoms reported Psychiatric/Neurological: No Symptoms Reported Past Fffrway-Nsoghm-Sxfmvd Hx Patient Social History Tobacco Use?: No Smoking Status: Former Smoker Use of E-Cig and/or Vaping dev: Yes Substance use?: Yes Substance type: Marijuana Alcohol Use?: Yes Alcohol Frequency: Rarely Pt feels they are or have been: No Immunizations Up To Date Tetanus Booster (TDap): Unknown Seasonal Allergies Seasonal Allergies: No Past Medical History Surgery/Hospitalization HX: chronic DDD Surgeries: Yes Section, Coronary Stent, Hysterectomy Respiratory: Yes Chronic Bronchitis Cardiac: Yes Coronary Artery Disease, Heart Attack, High Cholesterol Neurological: No Reproductive Disorders: Yes (ENDOMETROSIS) Female Reproductive Disorders: 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 Sexually Transmitted Disease: No HIV/AIDS: No Genitourinary: No Gastrointestinal: Yes Gastroesophageal Reflux, Esophagitis Musculoskeletal: Yes Degenerate Disk Disease, Arthritis, Chronic Back Pain Endocrine: Yes Hypothyroidsim HEENT: No Cancer: Yes Cervical Psychosocial: Yes Anxiety, PTSD, Bipolar Integumentary: No Blood Disorders: No Family Medical History Arthritis 19 MOTHER Asthma 19 MOTHER Cardiovascular disease 19 MOTHER Diabetes mellitus 19 MOTHER Headache disorder 19 FATHER 19 MOTHER G8 SISTER Hypertension 19 MOTHER Respiratory disorder 19 MOTHER No Family History of: AIDS Abdominal aortic aneurysm [place]'s disease Alcoholism Alzheimer's disease Aphasia Cancer of mouth Cataracts Colon cancer Completed stroke Congenital disease Congenital heart disease Coronary thrombosis Cystic fibrosis Deafness or hearing loss Dementia Drug abuse Dysphasia Fibrocystic disease of breast Gastroenteritis Glaucoma Hypercholesterolemia Infertility Kidney disease Myocardial infarction Neoplasm Not obtainable due to adoption Osteoporosis Parkinson's disease Prostate cancer Psychosocial problem Seizure disorder Severe allergy Thyroid disease Tuberculosis Visual disorder Physical Exam Vital Signs Vital Signs - First Documented 11/01/20 09:43 Temp 36.3 Pulse 73 Resp 18 B/P (MAP) 143/87 (105) Pulse Ox 97 O2 Delivery Room Air Capillary Refill : Less Than 3 Seconds Height, Weight, BMI Height: 5'5.00" Weight: 110lbs. 0oz. [id number]; 18.00 BMI Method:Stated General Appearance: no apparent distress HEENT: PERRL/EOMI, normal ENT inspection Neck: non-tender, full range of motion Cardiovascular: normal peripheral pulses, regular rate, rhythm Respiratory: chest non-tender, lungs clear Gastrointestinal: non tender, soft Back: no CVA tenderness, muscle spasm (Right lower lumbar.) Hips: bilateral hip non-tender, bilateral hip normal inspection, bilateral hip normal range of motion Legs: bilateral leg non-tender, bilateral leg normal inspection, bilateral leg normal range of motion Knees: bilateral knee non-tender, bilateral knee normal inspection Reflexes: 3+ knee (R), 3+ knee (L) Neurologic/Tendon: normal sensation, normal motor functions, normal tendon functions Neurologic/Psychiatric: no motor/sensory deficits, alert, normal mood/affect, oriented x 3 Progress/Results/Core Measures Results/Orders My Orders Orders - OSCAR RUCKER DO Ketorolac Injection (Toradol Injection) (11/01/20 10:30) Orphenadrine Inj (Ed Only) (Norflex Inje (11/01/20 10:30) Vital Signs/I&O 11/01/20 09:43 Temp 36.3 Pulse 73 Resp 18 B/P (MAP) 143/87 (105) Pulse Ox 97 O2 Delivery Room Air Blood Pressure Mean: 105 Departure Communication (Admissions) Exacerbation of chronic sciatica. No neurologic deficits. Will give 1 time refill of pain medication until patient can follow-up with her PCP later this week. Impression Primary Impression: Chronic sciatica of right side Disposition: HOME, SELF-CARE Condition: Stable Departure-Patient Inst. Decision time for Depature: 10:32 Referrals: [facility] (PCP/Family) Primary Care Physician Patient Instructions: Sciatica Exercises, Sciatica ED Add. Discharge Instructions: Please continue Tylenol and Soma for treatment of chronic back pain. Follow-up with your PCP for further management. All discharge instructions reviewed with patient and/or family. Voiced understanding. OSCAR RUCKER DO Nov 01, 2020 10:32
[2020-11-01] MEDS ORDERED: CARI250T PO ×3 (10:33→10:43)
== END 2020-11-01 10:42 | disposition home or self-care (01) ==
LOC: EDUNIT# 09:34 → ER FS 09:36
DX: M54.41 Lumbago with sciatica, right side (principal); T42.8X6A Underdosing of antiparkinsonism drugs and other central muscle-tone depressants, initial encounter; I25.10 Atherosclerotic heart disease of native coronary artery without angina pectoris; I25.2 Old myocardial infarction; K21.9 Gastro-esophageal reflux disease without esophagitis; Z91.14 Patient's other noncompliance with medication regimen; Z87.891 Personal history of nicotine dependence; Z79.82 Long term (current) use of aspirin; Z79.899 Other long term (current) drug therapy
CPT/HCPCS: 96372; 99284

== ENCOUNTER 2021-02-27 08:48 | Emergency (ER) | payer MEDICAID ==
[~2021-02-27] VITALS: Ht 165 cm; Wt 48.0 kg
[~2021-02-27 08:48] MED LIST changes: +CARI250T PO; +CLIN-144 PO; -CLIN300C12 PO
[2021-02-27 09:12] VITALS: BP 131/80
--- NOTE | 2021-02-27 09:14 | ED Cough/URI ---
General Chief Complaint: COVID19 Suspect/Confirmed Stated Complaint: HEADACHE; NECK PAIN; NASAL DRAINAGE Source: patient Exam Limitations: no limitations History of Present Illness Date Seen by Provider: Feb 27, 2021 Time Seen by Provider: 08:50 Initial Comments 40-year-old female with past medical history of CAD with stenting coming in due to 2 days of congestion and headache. Headache has been moderate, constant, throbbing, and better after she took Tylenol this morning. She says she has been around a couple friends that have been sick, and she believes they were negative for Covid, but she is unsure. Denies any fever, cough, shortness of breath, abdominal pain, chest pain, weakness, numbness, nausea, vomiting, diarrhea, rash, or any other concerns. Allergies and Home Medications Allergies Coded Allergies: tramadol (Unverified Allergy, Severe, SEIZURE, 12/26/13) Patient Home Medication List Home Medication List Reviewed: Yes Aspirin (Aspirin Ec Low Dose) 81 Mg Tablet.dr, 81 MG PO DAILY Prescribed by: MILADY RODRIGUEZ on 12/27/13 1708 Buspirone HCl (Buspirone HCl) 5 Mg Tablet, (Reported) Entered as Reported by: YANELY MITCHELL on 09/16/20 1136 Carisoprodol (Soma) 250 Mg Tablet, 250 MG PO TID Prescribed by: OSCAR RUCKER on 11/01/20 1044 Famotidine (Pepcid) 20 Mg Tablet, 20 MG PO BID Prescribed by: JUAN LUIS OH on 09/16/20 1030 Fluticasone Propionate (Fluticasone Propionate) 16 Gm [place].susp, 16 GM NS BID Prescribed by: RYLEY SIDDIQUI on 02/27/21 0917 Hydroxyzine HCl (Hydroxyzine HCl) 50 Mg Tablet, (Reported) Entered as Reported by: YANELY MITCHELL on 09/16/20 1136 Levothyroxine Sodium (Levothyroxine Sodium) 112 Mcg Tablet, (Reported) Entered as Reported by: YANELY MITCHELL on 09/16/20 1136 Methocarbamol (Methocarbamol) 750 Mg Tablet, 750 MG PO Q6-8HR, (Reported) Entered as Reported by: MARLENE ZAVALA on 06/03/18 0857 Review of Systems Review of Systems Constitutional: No chills, No fever EENTM: nose congestion; No blurred vision Respiratory: no symptoms reported Cardiovascular: no symptoms reported Gastrointestinal: no symptoms reported Genitourinary: no symptoms reported Musculoskeletal: no symptoms reported Skin: no symptoms reported Psychiatric/Neurological: Headache Hematologic/Lymphatic: No Symptoms Reported Immunological/Allergic: no symptoms reported All Other Systems Reviewed Negative Unless Noted: Yes Past Uvowhyh-Fdvrqa-Uwmuvr Hx Patient Social History Tobacco Use?: Yes Tobacco type used: Cigarettes Use of E-Cig and/or Vaping dev: No Substance use?: No Alcohol Use?: No Pt feels they are or have been: No Immunizations Up To Date Tetanus Booster (TDap): Unknown Seasonal Allergies Seasonal Allergies: No Past Medical History Surgery/Hospitalization HX: chronic DDD Surgeries: Yes Section, Coronary Stent, Hysterectomy Respiratory: Yes Chronic Bronchitis Cardiac: Yes Coronary Artery Disease, Heart Attack, High Cholesterol Neurological: No Reproductive Disorders: Yes (ENDOMETROSIS) Female Reproductive Disorders: Endometriosis 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 Sexually Transmitted Disease: No HIV/AIDS: No Genitourinary: No Gastrointestinal: Yes Gastroesophageal Reflux, Esophagitis Musculoskeletal: Yes Degenerate Disk Disease, Arthritis, Chronic Back Pain Endocrine: Yes Hypothyroidsim HEENT: No Cancer: Yes Cervical Psychosocial: Yes Anxiety, PTSD, Bipolar Integumentary: No Blood Disorders: No Family Medical History Arthritis 19 MOTHER Asthma 19 MOTHER Cardiovascular disease 19 MOTHER Diabetes mellitus 19 MOTHER Headache disorder 19 FATHER 19 MOTHER G8 SISTER Hypertension 19 MOTHER Respiratory disorder 19 MOTHER No Family History of: AIDS Abdominal aortic aneurysm Fountain's disease Alcoholism Alzheimer's disease Aphasia Cancer of mouth Cataracts Colon cancer Completed stroke Congenital disease Congenital heart disease Coronary thrombosis Cystic fibrosis Deafness or hearing loss Dementia Drug abuse Dysphasia Fibrocystic disease of breast Gastroenteritis Glaucoma Hypercholesterolemia Infertility Kidney disease Myocardial infarction Neoplasm Not obtainable due to adoption Osteoporosis Parkinson's disease Prostate cancer Psychosocial problem Seizure disorder Severe allergy Thyroid disease Tuberculosis Visual disorder Physical Exam Vital Signs - First Documented 02/27/21 09:05 Temp 36.5 Pulse 62 Resp 18 B/P (MAP) 131/80 (97) Pulse Ox 98 O2 Delivery Room Air Capillary Refill : Height: 5'5.00" Weight: 110lbs. 0oz. [id number]; 18.00 BMI Method:Stated General Appearance: WD/WN, no apparent distress Eyes: Bilateral Eye Normal Inspection, Bilateral Eye PERRL HEENT: PERRL/EOMI, normal ENT inspection, TMs normal, pharynx normal Neck: non-tender, full range of motion, supple, normal inspection Respiratory: chest non-tender, lungs clear, normal breath sounds, no respiratory distress, no accessory muscle use Cardiovascular: regular rate, rhythm, no murmur Gastrointestinal: normal bowel sounds, non tender, soft; No distended, No guarding, No rebound Extremities: normal range of motion, non-tender, normal inspection, no pedal edema, no calf tenderness Neurologic/Psychiatric: no motor/sensory deficits, alert, normal mood/affect, oriented x 3, other (No meningismus, negative jolt test) Skin: normal color, warm/dry Lymphatic: no adenopathy Progress/Results/Core Measures Suspected Sepsis SIRS Temperature: Pulse: Respiratory Rate: Blood Pressure / Mean: Results/Orders Lab Results Laboratory Tests Test 02/27/21 09:00 Range/Units My Orders Orders - RYLEY SIDDIQUI MD Covid 19 Inhouse Test (02/27/21 09:00) Vital Signs/I&O 02/27/21 02/27/21 09:05 09:12 Temp 36.5 36.5 Pulse 62 62 Resp 18 18 B/P (MAP) 131/80 (97) 131/80 Pulse Ox 98 98 O2 Delivery Room Air Room Air Capillary Refill : Progress Note : Progress Note 40-year-old female with above history coming in due to 2 days of headache and c ongestion. ABCs were intact and vitals are stable on presentation. Physical exam reassuring with no focal abnormalities. Specifically she has no meningismus and I have very little concern for meningitis at this time. Signs and symptoms consistent with a viral etiology. Covid testing sent and I recommended her isolate until the test comes back. Her oxygen is greater than 98% on room air even with ambulation. Lungs sound clear. She is not having any cough, chest pain, shortness of breath, and does not seem like she has any type of lung involvement at this time with what ever infection she is dealing with. I recommend symptomatic treatment. I believe she is stable for discharge. She was sent home with strict return precautions. Departure Impression Primary Impression: Person under investigation for COVID-19 Additional Impression: URI (upper respiratory infection) Qualified Codes: J06.9 - Acute upper respiratory infection, unspecified Disposition: 01 HOME, SELF-CARE Condition: Stable Departure-Patient Inst. Decision time for Depature: 09:12 Referrals: AYLEEN KITCHEN APRN (PCP) Primary Care Physician [facility]/[place] (Family) Primary Care Physician Patient Instructions: COVID-19 Overview Add. Discharge Instructions: You came to the emergency department due to headache and congestion. I recommend taking Tylenol and ibuprofen intermittently for this with plenty of fluids. I also recommend things such as DayQuil or NyQuil which can help with your congestion. These have Tylenol in them, so if you are taking these, then do not take additional Tylenol on top of that. I sent a steroid inhaler to your pharmacy which in certain studies have shown benefit in Covid patients with him having symptoms for a less amount of days. Your Covid test should come back hopefully within the next day, and be sure to isolate until that comes back. If you have any concerns or begin feeling short of breath and please call your doctor or come back to the ER. Scripts Fluticasone Propionate (Fluticasone Propionate) 16 Gm [place].susp 16 GM NS BID for 14 Days, #1 UNIT Prov: RYLEY SIDDIQUI MD 02/27/21 Work/School Note: Work Release Form Date Seen in the Emergency Department: Feb 27, 2021 Return to Work: Mar 01, 2021 Restrictions: Return-No Fever (24hrs) RYLEY SIDDIQUI MD Feb 27, 2021 09:14
[2021-02-27] MEDS ORDERED: FLUT16SP22 NS (09:17)
== END 2021-02-27 09:20 | disposition home or self-care (01) ==
LOC: EDUNIT# 08:48 → ER FS 08:49
DX: J06.9 Acute upper respiratory infection, unspecified (principal); I25.2 Old myocardial infarction; F41.9 Anxiety disorder, unspecified; E03.9 Hypothyroidism, unspecified; Z20.822 Contact with and (suspected) exposure to COVID-19; Z79.82 Long term (current) use of aspirin; Z79.890 Hormone replacement therapy; Z79.899 Other long term (current) drug therapy
CPT/HCPCS: 87636; 99283

== ENCOUNTER 2022-01-11 11:07 | Emergency (ER) | payer MEDICAID ==
[~2022-01-11] VITALS: Ht 165 cm; Wt 49.1 kg
[~2022-01-11 11:07] MED LIST changes: +FLUT16SP22 NS; -LISI-729; +LISI5TAB20
[2022-01-11] MEDS ORDERED: ACET-3075 PO (11:30)
--- NOTE | 2022-01-11 12:03 | ED EENT ---
History of Present Illness General Chief Complaint: Oral/Throat Problems Stated Complaint: THROAT SWELLING Nursing Triage Note: Pt states that she was eating salad and her tooth started hurting. She has gross dental caries and swelling of her gums. Took Tylenol PM this AM at 0400. Source: patient Exam Limitations: no limitations History of Present Illness Date Seen by Provider: Jan 11, 2022 Time Seen by Provider: 11:30 Initial Comments Patient is a 41-year-old female presents with eroded right posterior molar with submandibular and gingival swelling. No dysphonia drooling trismus or dysphagia. No medications or therapies prior to ED arrival. Patient does not have established dental care. Timing/Duration: gradual Location: other Prearrival Treatment: other Modifying Factors: Improves With Other Associated Symptoms: other Allergies and Home Medications Allergies Coded Allergies: tramadol (Unverified Allergy, Severe, SEIZURE, 12/26/13) acetaminophen (Verified Allergy, Mild, Rash, 01/11/22) Patient Home Medication List Home Medication List Reviewed: Yes Acetaminophen/Diphenhydramine (Tylenol Pm Ex-Strength Caplet) 500 Mg-25 Mg Tablet, 1 EACH PO, (Reported) Entered as Reported by: Jesika Mosquera on 01/11/22 1130 Last Action: New Order Aspirin (Aspirin Ec Low Dose) 81 Mg Tablet.dr, 81 MG PO DAILY Prescribed by: MILADY RODRIGUEZ on 12/27/13 1708 Buspirone HCl (Buspirone HCl) 5 Mg Tablet, (Reported) Entered as Reported by: YANELY MITCHELL on 09/16/20 1136 Carisoprodol (Soma) 250 Mg Tablet, 250 MG PO TID Prescribed by: OSCAR RUCKER on 11/01/20 1044 Famotidine (Pepcid) 20 Mg Tablet, 20 MG PO BID Prescribed by: JUAN LUIS OH on 09/16/20 1030 Fluticasone Propionate (Fluticasone Propionate) 16 Gm [place].susp, 16 GM NS BID Prescribed by: RYLEY SIDDIQUI on 02/27/21 0917 Hydroxyzine HCl (Hydroxyzine HCl) 50 Mg Tablet, (Reported) Entered as Reported by: YANELY MITCHELL on 09/16/20 1136 Levothyroxine Sodium (Levothyroxine Sodium) 112 Mcg Tablet, (Reported) Entered as Reported by: YANELY MITCHELL on 09/16/20 1136 Methocarbamol (Methocarbamol) 750 Mg Tablet, 750 MG PO Q6-8HR, (Reported) Entered as Reported by: MARLENE ZAVALA on 06/03/18 0857 Review of Systems Review of Systems Constitutional: see HPI Eyes: See HPI Ears: See HPI Nose: see HPI Mouth: see HPI Throat: see HPI Respiratory: see HPI Cardiovascular: see HPI Gastrointestinal: see HPI Musculoskeletal: see HPI Skin: see HPI Neurological: No Symptoms Reported, See HPI Hematologic/Lymphatic: See HPI Immunological/Allergic: see HPI Past [id number]-Nfuykr Hx Patient Social History Tobacco Use?: No Use of E-Cig and/or Vaping dev: No Substance use?: No Alcohol Use?: No Pt feels they are or have been: No Immunizations Up To Date Tetanus Booster (TDap): Unknown Seasonal Allergies Seasonal Allergies: No Past Medical History Surgery/Hospitalization HX: chronic DDD Surgeries: Yes Section, Coronary Stent, Hysterectomy Respiratory: Yes Chronic Bronchitis Cardiac: Yes Coronary Artery Disease, Heart Attack, High Cholesterol Neurological: No Reproductive Disorders: Yes (ENDOMETROSIS) Female Reproductive Disorders: 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 Sexually Transmitted Disease: No HIV/AIDS: No Genitourinary: No Gastrointestinal: Yes Gastroesophageal Reflux, Esophagitis Musculoskeletal: Yes Degenerate Disk Disease, Arthritis, Chronic Back Pain Endocrine: Yes Hypothyroidsim HEENT: No Cancer: Yes Cervical Psychosocial: Yes Anxiety, PTSD, Bipolar Integumentary: No Blood Disorders: No Family Medical History Arthritis 19 MOTHER Asthma 19 MOTHER Cardiovascular disease 19 MOTHER Diabetes mellitus 19 MOTHER Headache disorder 19 FATHER 19 MOTHER G8 SISTER Hypertension 19 MOTHER Respiratory disorder 19 MOTHER No Family History of: AIDS Abdominal aortic aneurysm Hipolito's disease Alcoholism Alzheimer's disease Aphasia Cancer of mouth Cataracts Colon cancer Completed stroke Congenital disease Congenital heart disease Coronary thrombosis Cystic fibrosis Deafness or hearing loss Dementia Drug abuse Dysphasia Fibrocystic disease of breast Gastroenteritis Glaucoma Hypercholesterolemia Infertility Kidney disease Myocardial infarction Neoplasm Not obtainable due to adoption Osteoporosis Parkinson's disease Prostate cancer Psychosocial problem Seizure disorder Severe allergy Thyroid disease Tuberculosis Visual disorder Physical Exam Vital Signs Vital Signs - First Documented 01/11/22 11:09 Temp 36.7 Pulse 82 Resp 20 B/P (MAP) 139/91 (107) Pulse Ox 98 O2 Delivery Room Air Height, Weight, BMI Height: 5'5.00" Weight: 110lbs. 0oz. 49.759403ff; 18.00 BMI Method:Stated General Appearance: WD/WN, no apparent distress Eyes: bilateral eye normal inspection, bilateral eye PERRL, bilateral eye EOMI Ears: bilateral ear auricle normal, bilateral ear canal normal Mouth/Throat: pharynx normal, other (Dental caries with erosion of right anterior lower premolar.) Neck: non-tender, full range of motion, supple Cardiovascular: normal peripheral pulses, regular rate, rhythm Respiratory: chest non-tender, lungs clear Gastrointestinal: soft Neurologic/Psychiatric: no motor/sensory deficits Progress/Results/Core Measures Results/Orders My Orders Orders - OSCAR RUCKER DO Oxycodone Immediate Rel Tablet (Oxyir Ta (01/11/22 11:45) Medications Given in ED Current Medications Medications Dose Ordered Sig/Feliz Route Start Time Stop Time Status Last Admin Dose Admin Oxycodone HCl 10 mg ONCE ONCE PO 01/11/22 11:45 01/11/22 11:46 DC 01/11/22 11:43 10 MG Vital Signs/I&O 01/11/22 11:09 Temp 36.7 Pulse 82 Resp 20 B/P (MAP) 139/91 (107) Pulse Ox 98 O2 Delivery Room Air Blood Pressure Mean: 107 Departure Communication (Admissions) Patient was due to dental abscess. Pain medication and antibiotics prescribed. Recommendations are to follow-up with local dentist as soon as possible. Return precautions reviewed. Patient verbalizes understanding agreement with discharge instructions prior to departure peer Impression Primary Impression: Dental abscess Additional Impression: Facial swelling Disposition: 01 HOME, SELF-CARE Condition: Stable Departure-Patient Inst. Decision time for Depature: 12:25 Referrals: AYLEEN KITCHEN APRN (PCP) Primary Care Physician [facility]/[place] (Family) Primary Care Physician Patient Instructions: Tooth Abscess (DC) Add. Discharge Instructions: You were evaluated in the emergency department for dental abscess and facial swelling. Please fill newly prescribed medications and take as directed. Contact a local dentist today and schedule follow-up appointment as soon as po ssible. Return to the ED if new or concerning symptoms. All discharge instructions reviewed with patient and/or family. Voiced understanding. Scripts Oxycodone HCl (Oxycodone HCl) 10 Mg Tablet 10 MG PO Q8H for 2 Days, #5 TAB Prov: OSCAR RUCKER DO 01/11/22 Penicillin V Potassium (Penicillin V Potassium) 500 Mg Tablet 500 MG PO QID, #40 TAB Prov: OSCAR RUCKER DO 01/11/22 OSCAR RUCKER DO Jan 11, 2022 12:03
[2022-01-11] MEDS ORDERED: PENI500T PO (12:32)
[2022-01-11] MEDS ORDERED: OXYC10TA7 PO (12:32)
[2022-01-11 12:38] VITALS: BP 139/91
== END 2022-01-11 12:38 | disposition home or self-care (01) ==
LOC: EDUNIT# 11:07 → ER FS 11:08
DX: K04.7 Periapical abscess without sinus (principal); Z28.310 Unvaccinated for COVID-19
CPT/HCPCS: 99283

== ENCOUNTER 2022-01-12 08:57 | Emergency (ER) | payer MEDICAID ==
[~2022-01-12] VITALS: Ht 167 cm; Wt 46.0 kg
[~2022-01-12 08:57] MED LIST changes: +ACET-3075 PO
[2022-01-12] MEDS ORDERED: FAMOTIDINE 20MG/2ML IV (PEPCID) IV STA (09:10)
[2022-01-12] MEDS ORDERED: LIDOCAINE 2% VISCOUS 15 ML UDC PO ONE (09:15)
[2022-01-12] MEDS ORDERED: ANTACID SUSP 30 ML UDC (MYLANTA) PO ONE (09:15)
[2022-01-12 09:19] LABS: BASOPHILS # (AUTO) 0.1 10^3/uL (0.0-0.1); BASOPHILS % (AUTO) 1 % (0-10); EOSINOPHILS # (AUTO) 0.1 10^3/uL (0.0-0.3); EOSINOPHILS % (AUTO) 1 % (0-10); HEMATOCRIT 39 % (35-52); HEMOGLOBIN 13.4 g/dL (11.5-16.0); LYMPHOCYTES # (AUTO) 2.8 10^3/uL (1.0-4.0); LYMPHOCYTES % (AUTO) 39 % (12-44); MEAN CORPUSCULAR HEMOGLOBIN 36 pg (25-34); MEAN CORPUSCULAR HGB CONC 35 g/dL (32-36); MEAN CORPUSCULAR VOLUME 104 fL (80-99); MEAN PLATELET VOLUME 10.3 fL (9.0-12.2); MONOCYTES # (AUTO) 0.6 10^3/uL (0.0-1.0); MONOCYTES % (AUTO) 8 % (0-12); NEUTROPHILS # (AUTO) 3.8 10^3/uL (1.8-7.8); NEUTROPHILS % (AUTO) 51 % (42-75); PLATELET COUNT 175 10^3/uL (130-400); WHITE BLOOD COUNT 7.3 10^3/uL (4.3-11.0)
--- NOTE | 2022-01-12 09:24 | ED Chest Pain ---
General Chief Complaint: Chest Pain Stated Complaint: CHEST PAIN History of Present Illness Date Seen by Provider: Jan 12, 2022 Time Seen by Provider: 09:00 Initial Comments 41-year-old female presents with epigastric/lower chest pain. She reports that started yesterday afternoon. Patient was seen here yesterday for dental infection and started on hydrocodone and penicillin. She reports that it was kind around 9 Tylenol but after when the pain started. This been constant does not change. She reports that she has "stomach problems". Patient also reports a history of a stent. She is taken nitros both yesterday and today with some minimal improvement but the pain still constant. She reports that her Carafate is not working. Patient presents just to have her heart checked. She denies any radiation of the pain. She does not report any shortness of breath, diaphoresis. Allergies and Home Medications Allergies Coded Allergies: tramadol (Unverified Allergy, Severe, SEIZURE, 12/26/13) acetaminophen (Verified Allergy, Mild, Rash, 01/11/22) Patient Home Medication List Home Medication List Reviewed: Yes Acetaminophen/Diphenhydramine (Tylenol Pm Ex-Strength Caplet) 500 Mg-25 Mg Tablet, 1 EACH PO, (Reported) Entered as Reported by: Jesika Mosquera on 01/11/22 1130 Aspirin (Aspirin Ec Low Dose) 81 Mg Tablet.dr, 81 MG PO DAILY Prescribed by: MILADY RODRIGUEZ on 12/27/13 1708 Buspirone HCl (Buspirone HCl) 5 Mg Tablet, (Reported) Entered as Reported by: YANELY MITCHELL on 09/16/20 1136 Carisoprodol (Soma) 250 Mg Tablet, 250 MG PO TID Prescribed by: OSCAR RUCKER on 11/01/20 1044 Famotidine (Pepcid) 20 Mg Tablet, 20 MG PO BID Prescribed by: JUAN LUIS OH on 09/16/20 1030 Fluticasone Propionate (Fluticasone Propionate) 16 Gm [place].susp, 16 GM NS BID Prescribed by: RYLEY SIDDIQUI on 02/27/21 0917 Hydroxyzine HCl (Hydroxyzine HCl) 50 Mg Tablet, (Reported) Entered as Reported by: YANELY MITCHELL on 09/16/20 1136 Levothyroxine Sodium (Levothyroxine Sodium) 112 Mcg Tablet, (Reported) Entered as Reported by: YANELY MITCHELL on 09/16/20 1136 Methocarbamol (Methocarbamol) 750 Mg Tablet, 750 MG PO Q6-8HR, (Reported) Entered as Reported by: MARLENE ZAVALA on 06/03/18 0857 Oxycodone HCl (Oxycodone HCl) 10 Mg Tablet, 10 MG PO Q8H Prescribed by: OSCAR RUCKER on 01/11/22 1232 Penicillin V Potassium (Penicillin V Potassium) 500 Mg Tablet, 500 MG PO QID Prescribed by: OSCAR RUCKER on 01/11/22 1232 Review of Systems Review of Systems Constitutional: No chills, No fever Respiratory: Denies Cough, Denies Shortness of Air Cardiovascular: See HPI, Chest Pain; Denies Lightheadedness, Denies Palpitations Gastrointestinal: Denies Abdomen Distended; Abdominal Pain; Denies Diarrhea Genitourinary: No Symptoms Reported Musculoskeletal: no symptoms reported Skin: no symptoms reported Psychiatric/Neurological: No Symptoms Reported Endocrine: No Symptoms Reported Past Acowvjl-Uixoio-Myjnrc Hx Patient Social History Tobacco Use?: Yes Tobacco type used: Cigarettes Smoking Status: Current Everyday Smoker Substance use?: Yes Substance type: Marijuana Alcohol Use?: No Pt feels they are or have been: No Immunizations Up To Date Tetanus Booster (TDap): Unknown Seasonal Allergies Seasonal Allergies: No Past Medical History Surgery/Hospitalization HX: chronic DDD; gastric ulcer; CAD Surgeries: Yes Section, Coronary Stent, Hysterectomy Respiratory: Yes Chronic Bronchitis Cardiac: Yes Coronary Artery Disease, Heart Attack, High Cholesterol Neurological: No Reproductive Disorders: Yes (ENDOMETROSIS) Female Reproductive Disorders: Endometriosis 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 Sexually Transmitted Disease: No HIV/AIDS: No Genitourinary: No Gastrointestinal: Yes Gastroesophageal Reflux, Esophagitis Musculoskeletal: Yes Degenerate Disk Disease, Arthritis, Chronic Back Pain Endocrine: Yes Hypothyroidsim HEENT: No Cancer: Yes Cervical Psychosocial: Yes Anxiety, PTSD, Bipolar Integumentary: No Blood Disorders: No Family Medical History Arthritis 19 MOTHER Asthma 19 MOTHER Cardiovascular disease 19 MOTHER Diabetes mellitus 19 MOTHER Headache disorder 19 FATHER 19 MOTHER G8 SISTER Hypertension 19 MOTHER Respiratory disorder 19 MOTHER No Family History of: AIDS Abdominal aortic aneurysm [place]'s disease Alcoholism Alzheimer's disease Aphasia Cancer of mouth Cataracts Colon cancer Completed stroke Congenital disease Congenital heart disease Coronary thrombosis Cystic fibrosis Deafness or hearing loss Dementia Drug abuse Dysphasia Fibrocystic disease of breast Gastroenteritis Glaucoma Hypercholesterolemia Infertility Kidney disease Myocardial infarction Neoplasm Not obtainable due to adoption Osteoporosis Parkinson's disease Prostate cancer Psychosocial problem Seizure disorder Severe allergy Thyroid disease Tuberculosis Visual disorder Physical Exam Vital Signs Vital Signs - First Documented 01/12/22 09:20 Temp 36.4 Pulse 71 Resp 16 B/P (MAP) 169/83 (111) Pulse Ox 96 O2 Delivery Room Air Capillary Refill : Height, Weight, BMI Height: 5'5.00" Weight: 110lbs. 0oz. 49.555420oi; 18.00 BMI Method:Stated General Appearance: No Apparent Distress, WD/WN Neck: Normal Inspection, Non Tender Respiratory: Lungs Clear, Normal Breath Sounds Cardiovascular: Regular Rate, Rhythm, No Edema Gastrointestinal: Soft, Tenderness (mild epigastric ) Extremity: Normal Capillary Refill Neurologic/Psychiatric: Alert, Oriented x3 Skin: Normal Color, Warm/Dry Progress/Results/Core Measures Results/Orders Lab Results Laboratory Tests Test 01/12/22 09:06 Range/Units White Blood Count 7.3 4.3-11.0 10^3/uL Red Blood Count 3.73 L 3.80-5.11 10^6/uL Hemoglobin 13.4 11.5-16.0 g/dL Hematocrit 39 35-52 % Mean Corpuscular Volume 104 H 80-99 fL Mean Corpuscular Hemoglobin 36 H 25-34 pg Mean Corpuscular Hemoglobin Concent 35 32-36 g/dL Red Cell Distribution Width 12.8 10.0-14.5 % Platelet Count 175 130-400 10^3/uL Mean Platelet Volume 10.3 9.0-12.2 fL Immature Granulocyte % (Auto) 0 % Neutrophils (%) (Auto) 51 42-75 % Lymphocytes (%) (Auto) 39 12-44 % Monocytes (%) (Auto) 8 0-12 % Eosinophils (%) (Auto) 1 0-10 % Basophils (%) (Auto) 1 0-10 % Neutrophils # (Auto) 3.8 1.8-7.8 10^3/uL Lymphocytes # (Auto) 2.8 1.0-4.0 10^3/uL Monocytes # (Auto) 0.6 0.0-1.0 10^3/uL Eosinophils # (Auto) 0.1 0.0-0.3 10^3/uL Basophils # (Auto) 0.1 0.0-0.1 10^3/uL Immature Granulocyte # (Auto) 0.0 0.0-0.1 10^3/uL Sodium Level 140 135-145 MMOL/L Potassium Level 3.8 3.6-5.0 MMOL/L Chloride Level 102 98-107 MMOL/L Carbon Dioxide Level 26 21-32 MMOL/L Anion Gap 12 5-14 MMOL/L Blood Urea Nitrogen 13 7-18 MG/DL Creatinine 0.73 0.60-1.30 MG/DL Estimat Glomerular Filtration Rate 105 BUN/Creatinine Ratio 18 Glucose Level 115 H 70-105 MG/DL Calcium Level 9.2 8.5-10.1 MG/DL Corrected Calcium 8.5-10.1 MG/DL Magnesium Level 1.9 1.6-2.4 MG/DL Total Bilirubin 0.2 0.1-1.0 MG/DL Aspartate Amino Transf (AST/SGOT) 28 5-34 U/L Alanine Aminotransferase (ALT/SGPT) 24 0-55 U/L Alkaline Phosphatase 74 40-136 U/L Troponin I < 0.30 <0.30 NG/ML Total Protein 7.3 6.4-8.2 GM/DL Albumin 4.8 H 3.2-4.5 GM/DL My Orders Orders - CHARBEL BURGOS DO Cbc With Automated Diff (01/12/22 09:10) Comprehensive Metabolic Panel (01/12/22 09:10) Magnesium (01/12/22 09:10) Troponin I Fs (01/12/22 09:10) Ekg Tracing (01/12/22 09:10) Monitor-Rhythm Ecg Trace Only (01/12/22 09:10) Lidocaine 2% Viscous 15 Ml (Xylocaine Vi (01/12/22 09:15) Antacid Suspension (Mylanta Suspension (01/12/22 09:15) Famotidine Injection (Pepcid Injection) (01/12/22 09:10) Medications Given in ED Current Medications Medications Dose Ordered Sig/Feliz Route Start Time Stop Time Status Last Admin Dose Admin Al Hydrox/Mg Hydrox/Simethicone 30 ml ONCE ONCE PO 01/12/22 09:15 01/12/22 09:16 DC 01/12/22 09:21 30 ML Lidocaine HCl 15 ml ONCE ONCE PO 10/6/22 09:15 01/12/22 09:16 DC 01/12/22 09:21 15 ML Vital Signs/I&O 01/12/22 01/12/22 09:20 10:35 Temp 36.4 36.4 Pulse 71 59 Resp 16 16 B/P (MAP) 169/83 (111) 119/73 Pulse Ox 96 96 O2 Delivery Room Air Room Air Progress Progress Note : Progress Note Patient's symptoms completely resolved with GI cocktail and Pepcid. Patient's symptoms were not consistent with cardiac. She had negative EKG and negative troponin with symptoms of been going on for at least 15 hours. Patient stable and discharged home I did recommend she follow-up with her primary care provider and consider further outpatient management with a GI specialist. Initial ECG Impression Date: Jan 12, 2022 Initial ECG Impression Time: 09:27 Initial ECG Rate: 60 Initial ECG Rhythm: Normal Sinus Initial ECG Impression: Normal Departure Impression Primary Impression: Epigastric abdominal pain Additional Impression: Gastroesophageal reflux disease Qualified Codes: K21.9 - Gastro-esophageal reflux disease without esophagitis Disposition: 01 HOME, SELF-CARE Condition: Stable Departure-Patient Inst. Referrals: AYLEEN KITCHEN APRN (PCP) Primary Care Physician [facility] (Family) Primary Care Physician Patient Instructions: Acid Reflux, Adult and Adolescent ED Add. Discharge Instructions: Follow-up with your primary care provider. Please consider discussion concerning and GI or general surgery referral for an EGD and further evaluation as needed. You may add Pepcid 20 mg twice daily to your omeprazole and Carafate that you already take. All discharge instructions reviewed with patient and/or family. Voiced understanding. CHARBEL BURGOS DO Jan 12, 2022 09:24
[2022-01-12 09:47] LABS: CHLORIDE 102 MMOL/L (98-107); POTASSIUM 3.8 MMOL/L (3.6-5.0); SODIUM 140 MMOL/L (135-145)
[2022-01-12 09:48] LABS: ALANINE AMINOTRANSFERASE 24 U/L (0-55); ALBUMIN 4.8 GM/DL (3.2-4.5); BILIRUBIN,TOTAL 0.2 MG/DL (0.1-1.0); BUN/CREATININE RATIO 18; CALCIUM 9.2 MG/DL (8.5-10.1); CARBON DIOXIDE 26 MMOL/L (21-32); CREATININE SERUM 0.73 MG/DL (0.60-1.30); GFR ESTIMATED 105; GLUCOSE 115 MG/DL (70-105); MAGNESIUM 1.9 MG/DL (1.6-2.4); TOTAL PROTEIN 7.3 GM/DL (6.4-8.2)
[2022-01-12 09:49] LABS: ALKALINE PHOSPHATASE 74 U/L (40-136)
[2022-01-12 10:35] VITALS: BP 119/73
== END 2022-01-12 10:35 | disposition home or self-care (01) ==
LOC: EDUNIT# 08:57 → ER FS 08:59
DX: K21.9 Gastro-esophageal reflux disease without esophagitis (principal); F17.210 Nicotine dependence, cigarettes, uncomplicated
CPT/HCPCS: 36415; 80053; 83735; 84484; 85025; 93005; 96374

== ENCOUNTER 2022-10-12 16:00 | Emergency (ER) | payer MEDICAID ==
[~2022-10-12] VITALS: Ht 160 cm; Wt 49.6 kg
[2022-10-12] MEDS ORDERED: FAMOTIDINE 20 MG (PEPCID) TABLET PO STA (16:07)
--- NOTE | 2022-10-12 16:11 | ED Cardiac General ---
History of Present Illness General Chief Complaint: Cardiac/General Problems Stated Complaint: ARRHYTHMIA Source: patient Exam Limitations: no limitations History of Present Illness Date Seen by Provider: Oct 12, 2022 Time Seen by Provider: 16:01 Initial Comments 42-year-old female with past medical history of CAD with a stent, GERD, depression, and hypothyroidism coming in due to chest pain. She is felt pressure-like pain that was going on for over 16 hours. She says this often is related to her GI issues, and typical GI medicines typically help with it. Its been off and on the past week as well. She also felt like her heart was racing at times. Denies any prior history of DVT or PE. Denies any lower extremity swelling or pain. No recent surgery. She did take 2 baby aspirin around midnight. She is not on Plavix or any blood thinners anymore, and was taken off of them years ago. She is otherwise denying any other acute complaints Allergies and Home Medications Allergies Coded Allergies: tramadol (Unverified Allergy, Severe, SEIZURE, 12/26/13) acetaminophen (Verified Allergy, Mild, Rash, 01/11/22) morphine (Verified Allergy, Unknown, 10/12/22) Patient Home Medication List Home Medication List Reviewed: Yes Acetaminophen/Diphenhydramine (Tylenol Pm Ex-Strength Caplet) 500 Mg-25 Mg Tablet, 1 EACH PO, (Reported) Entered as Reported by: Jesika Mosquera on 01/11/22 1130 Aspirin (Aspirin Ec Low Dose) 81 Mg Tablet.dr, 81 MG PO DAILY Prescribed by: MILADY RODRIGUEZ on 12/27/13 1708 Buspirone HCl (Buspirone HCl) 5 Mg Tablet, (Reported) Entered as Reported by: YANELY MITCHELL on 09/16/20 1136 Carisoprodol (Soma) 250 Mg Tablet, 250 MG PO TID Prescribed by: OSCAR RUCKER on 11/01/20 1044 Famotidine (Pepcid) 20 Mg Tablet, 20 MG PO BID Prescribed by: JUAN LUIS OH on 09/16/20 1030 Fluticasone Propionate (Fluticasone Propionate) 16 Gm [place].susp, 16 GM NS BID Prescribed by: RYLEY SIDDIQUI on 02/27/21 0917 Hydroxyzine HCl (Hydroxyzine HCl) 50 Mg Tablet, (Reported) Entered as Reported by: YANELY MITCHELL on 09/16/20 1136 Levothyroxine Sodium (Levothyroxine Sodium) 112 Mcg Tablet, (Reported) Entered as Reported by: YANELY MITCHELL on 09/16/20 1136 Methocarbamol (Methocarbamol) 750 Mg Tablet, 750 MG PO Q6-8HR, (Reported) Entered as Reported by: MARLENE ZAVALA on 06/03/18 0857 Oxycodone HCl (Oxycodone HCl) 10 Mg Tablet, 10 MG PO Q8H Prescribed by: OSCAR RUCKER on 01/11/22 1232 Penicillin V Potassium (Penicillin V Potassium) 500 Mg Tablet, 500 MG PO QID Prescribed by: OSCAR RUCKER on 01/11/22 1232 Review of Systems Review of Systems Constitutional: No fever EENTM: No Symptoms Reported Respiratory: No Symptoms Reported Cardiovascular: See HPI Gastrointestinal: No Symptoms Reported Genitourinary: No Symptoms Reported Musculoskeletal: no symptoms reported Skin: no symptoms reported Psychiatric/Neurological: No Symptoms Reported Endocrine: No Symptoms Reported Hematologic/Lymphatic: No Symptoms Reported Past Wopbquq-Zlqegl-Tfbfaw Hx Patient Social History Tobacco Use?: Yes Tobacco type used: Cigarettes Immunizations Up To Date Tetanus Booster (TDap): Unknown Seasonal Allergies Seasonal Allergies: No Past Medical History Surgery/Hospitalization HX: chronic DDD; gastric ulcer; CAD Surgeries: Yes Section, Coronary Stent, Hysterectomy Respiratory: Yes Chronic Bronchitis Cardiac: Yes Coronary Artery Disease, Heart Attack, High Cholesterol Neurological: No Reproductive Disorders: Yes (ENDOMETROSIS) Female Reproductive Disorders: Endometriosis 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 Sexually Transmitted Disease: No HIV/AIDS: No Genitourinary: No Gastrointestinal: Yes Gastroesophageal Reflux, Esophagitis Musculoskeletal: Yes Degenerate Disk Disease, Arthritis, Chronic Back Pain Endocrine: Yes Hypothyroidsim HEENT: No Cancer: Yes Cervical Psychosocial: Yes Anxiety, PTSD, Bipolar Integumentary: No Blood Disorders: No Family Medical History Arthritis 19 MOTHER Asthma 19 MOTHER Cardiovascular disease 19 MOTHER Diabetes mellitus 19 MOTHER Headache disorder 19 FATHER 19 MOTHER G8 SISTER Hypertension 19 MOTHER Respiratory disorder 19 MOTHER No Family History of: AIDS Abdominal aortic aneurysm [place]'s disease Alcoholism Alzheimer's disease Aphasia Cancer of mouth Cataracts Colon cancer Completed stroke Congenital disease Congenital heart disease Coronary thrombosis Cystic fibrosis Deafness or hearing loss Dementia Drug abuse Dysphasia Fibrocystic disease of breast Gastroenteritis Glaucoma Hypercholesterolemia Infertility Kidney disease Myocardial infarction Neoplasm Not obtainable due to adoption Osteoporosis Parkinson's disease Prostate cancer Psychosocial problem Seizure disorder Severe allergy Thyroid disease Tuberculosis Visual disorder Physical Exam Vital Signs Vital Signs - First Documented 10/12/22 16:04 Temp 35.7 Pulse 83 Resp 16 B/P (MAP) 144/87 (106) Pulse Ox 97 Capillary Refill : Height, Weight, BMI Height: 5'5.00" Weight: 110lbs. 0oz. 49.625254yb; 16.00 BMI Method:Stated General Appearance: No Apparent Distress, WD/WN HEENT: PERRL/EOMI, Normal ENT Inspection, Pharynx Normal Neck: Full Range of Motion, Normal Inspection, Non Tender, Supple Respiratory: Chest Non Tender, Lungs Clear, Normal Breath Sounds, No Accessory Muscle Use, No Respiratory Distress Cardiovascular: Regular Rate, Rhythm, No Edema, Normal Peripheral Pulses Gastrointestinal: Normal Bowel Sounds, Non Tender, Soft; No Distended, No Guarding Extremity: Normal Capillary Refill, Normal Inspection, Normal Range of Motion, Non Tender, No Calf Tenderness, No Pedal Edema Neurologic/Psychiatric: Alert, No Motor/Sensory Deficits, Normal Mood/Affect Skin: Normal Color, Warm/Dry Progress/Results/Core Measures Results/Orders Lab Results Laboratory Tests Test 10/12/22 16:10 Range/Units White Blood Count 8.1 4.3-11.0 10^3/uL Red Blood Count 3.93 3.80-5.11 10^6/uL Hemoglobin 14.0 11.5-16.0 g/dL Hematocrit 41 35-52 % Mean Corpuscular Volume 105 H 80-99 fL Mean Corpuscular Hemoglobin 36 H 25-34 pg Mean Corpuscular Hemoglobin Concent 34 32-36 g/dL Red Cell Distribution Width 11.6 10.0-14.5 % Platelet Count 215 130-400 10^3/uL Mean Platelet Volume 9.6 9.0-12.2 fL Immature Granulocyte % (Auto) 0 % Neutrophils (%) (Auto) 47 42-75 % Lymphocytes (%) (Auto) 42 12-44 % Monocytes (%) (Auto) 9 0-12 % Eosinophils (%) (Auto) 2 0-10 % Basophils (%) (Auto) 1 0-10 % Neutrophils # (Auto) 3.8 1.8-7.8 10^3/uL Lymphocytes # (Auto) 3.4 1.0-4.0 10^3/uL Monocytes # (Auto) 0.8 0.0-1.0 10^3/uL Eosinophils # (Auto) 0.1 0.0-0.3 10^3/uL Basophils # (Auto) 0.1 0.0-0.1 10^3/uL Immature Granulocyte # (Auto) 0.0 0.0-0.1 10^3/uL Prothrombin Time 13.4 12.2-14.7 SEC INR Comment 1.0 0.8-1.4 Activated Partial Thromboplast Time 35 24-35 SEC Sodium Level 140 135-145 MMOL/L Potassium Level 3.3 L 3.6-5.0 MMOL/L Chloride Level 103 98-107 MMOL/L Carbon Dioxide Level 23 21-32 MMOL/L Anion Gap 14 5-14 MMOL/L Blood Urea Nitrogen 12 7-18 MG/DL Creatinine 0.83 0.60-1.30 MG/DL Estimat Glomerular Filtration Rate 89 BUN/Creatinine Ratio 14 Glucose Level 117 H 70-105 MG/DL Calcium Level 9.5 8.5-10.1 MG/DL Corrected Calcium 8.5-10.1 MG/DL Magnesium Level 1.9 1.6-2.4 MG/DL Total Bilirubin 0.2 0.1-1.0 MG/DL Aspartate Amino Transf (AST/SGOT) 26 5-34 U/L Alanine Aminotransferase (ALT/SGPT) 27 0-55 U/L Alkaline Phosphatase 69 40-136 U/L Myoglobin < 21.0 <58.0 NG/ML Troponin I < 0.30 <0.30 NG/ML Pro-B-Type Natriuretic Peptide 92.8 <125.0 PG/ML Total Protein 7.0 6.4-8.2 GM/DL Albumin 4.8 H 3.2-4.5 GM/DL Lipase 21 8-78 U/L My Orders Orders - RYLEY SIDDIQUI MD Cbc With Automated Diff (10/12/22 16:07) Magnesium (10/12/22 16:07) Chest 1 View Ap/Pa Only (10/12/22 16:07) Ekg Tracing (10/12/22 16:07) Comprehensive Metabolic Panel (10/12/22 16:07) Myoglobin Serum (10/12/22 16:07) Protime With Inr (10/12/22 16:07) Partial Thromboplastin Time (10/12/22 16:07) O2 (10/12/22 16:07) Monitor-Rhythm Ecg Trace Only (10/12/22 16:07) Aspirin Chewable Tablet (Baby Aspirin Ch (10/12/22 16:15) Ed Iv/Invasive Line Start (10/12/22 16:07) Lipase (10/12/22 16:07) Troponin I Fs (10/12/22 16:07) Probnp Fs (10/12/22 16:07) Lidocaine 2% Viscous 15 Ml (Xylocaine Vi (10/12/22 16:15) Famotidine Tablet (Pepcid Tablet) (10/12/22 16:07) Antacid Suspension (Mylanta Suspension (10/12/22 16:15) Nitroglycerin Ointment (Nitrobid Ointme (10/12/22 16:15) Ondansetron Injection (Zofran Injectio (10/12/22 16:18) Medications Given in ED Current Medications Medications Dose Ordered Sig/Feliz Route Start Time Stop Time Status Last Admin Dose Admin Al Hydrox/Mg Hydrox/Simethicone 30 ml ONCE ONCE PO 10/12/22 16:15 10/12/22 16:16 DC 10/12/22 16:12 30 ML Aspirin 162 mg ONCE ONCE PO 10/12/22 16:15 10/12/22 16:16 DC 10/12/22 16:12 162 MG Lidocaine HCl 15 ml ONCE ONCE PO 10/12/22 16:15 10/12/22 16:16 DC 10/12/22 16:12 15 ML Nitroglycerin 1 inch ONCE ONCE TOP 10/12/22 16:15 10/12/22 16:16 DC 10/12/22 16:20 1 INCH Ondansetron HCl 4 mg STK-MED ONCE .ROUTE 10/12/22 16:18 10/12/22 16:20 DC 10/12/22 16:24 4 MG Vital Signs/I&O 10/12/22 16:04 Temp 35.7 Pulse 83 Resp 16 B/P (MAP) 144/87 (106) Pulse Ox 97 Progress Progress Note : Progress Note 42-year-old female with above history coming in due to chest discomfort that is been ongoing for over 16 hours straight. On top of that, its been happening pr gerson much the entire week. ABCs were intact and vitals were stable on presentation. Physical exam with no acute abnormalities including no clinical signs of a DVT. EKG with no acute ischemic changes and does appear similar to prior. An IV was placed and basic labs were obtained and were significant for negative troponin, normal BNP, normal creatinine, normal white blood cell count. She was given a GI cocktail as well as aspirin. She says on arrival here she was pain-free and continues to be pain-free. She says the GI cocktail took away any discomfort she was having altogether. This is similar to prior episodes in our ER. I will send a prescription for pantoprazole. I think is highly unlikely this is ACS related given the constant pain for many hours with a negative troponin. She is otherwise low risk for PE per [place] criteria and is PERC negative. Chest x-ray ordered and interpreted by me showing no pneumothorax or pneumonia. I believe she is otherwise stable for discharge with outpatient follow-up. She was sent home with strict return precautions. Initial ECG Impression Date: Oct 12, 2022 Initial ECG Impression Time: 16:04 Initial ECG Rate: 84 Initial ECG Rhythm: Normal Sinus Comment Narrow QRS, normal axis, some subtle ST depression in the lateral leads, no STEMI, overall appears similar to prior EKG Diagnostic Imaging Diagonstic Imaging: Xray (chest) Comments [facility] [place], [place] NAME: YANNA [facility]YALA [facility] REC#: [id number] PT STATUS: REG ER : 1980 PHYSICIAN: RYLEY SIDDIQUI MD ADMIT DATE: 10/12/22/ER FS Signed Date of Exam:10/12/22 CHEST 1 VIEW AP/PA ONLY EXAMINATION: Chest 1 view HISTORY: chest pain COMPARISON: 09/16/2020 FINDINGS: The lungs are clear without edema or pneumonia. No pleural effusion or pneumothorax. Heart size is normal. IMPRESSION: 1. Clear lungs. Dictated by: Dictated on workstation # [id number] Dict: 10/12/22 1635 Trans: 10/12/22 1650 CV [id number] Interpreted by: MINA ALLEN MD Electronically signed by: MINA ALLEN MD 10/12/22 5195 Departure Impression Primary Impression: Chest discomfort Additional Impression: CAD (coronary artery disease) Qualified Codes: I25.118 - Atherosclerotic heart disease of [place] coronary artery with other forms of angina pectoris Disposition: HOME, SELF-CARE Condition: Stable Departure-Patient Inst. Decision time for Depature: 17:10 Referrals: [facility] [place] ([place]/Family) Primary Care Physician CHUCK DINH MD FACP FAC CCDS Patient Instructions: Chest Pain (DC) Add. 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 If you would not like to travel that far, you can call Dr. Dinh, his number is in the paperwork, and he is located in [place]. If your symptoms change, we would want you to have more rapid follow-up, potentially in the ER. Scripts Pantoprazole Sodium (Pantoprazole Sodium) 40 Mg Tablet. 40 MG PO DAILY for 30 Days, #30 TAB Prov: RYLEY SIDDIQUI MD 10/12/22 Work/School Note: Family Work Note, Patient Received Medical Care In the Emergency Department On: Oct 12, 2022 Patient Will Be Able to Return to Work/School On: Oct 13, 2022 Work Release Form Date Seen in the Emergency Department: Oct 12, 2022 Return to Work: Oct 13, 2022 Restrictions: No Restrictions RYLEY SIDDIQUI MD Oct 12, 2022 16:11
[2022-10-12] MEDS ORDERED: NITROGLYCERIN 2% OINT 1 GM UNIT DOSE PACKET TOP ONE (16:15)
[2022-10-12] MEDS ORDERED: ANTACID SUSP 30 ML UDC (MYLANTA) PO ONE (16:15)
[2022-10-12] MEDS ORDERED: ASPIRIN 81 MG CHEW (CHILDREN'S ASA) PO ONE (16:15)
[2022-10-12] MEDS ORDERED: LIDOCAINE 2% VISCOUS 15 ML UDC PO ONE (16:15)
[2022-10-12 16:17] LABS: BASOPHILS # (AUTO) 0.1 10^3/uL (0.0-0.1); BASOPHILS % (AUTO) 1 % (0-10); EOSINOPHILS # (AUTO) 0.1 10^3/uL (0.0-0.3); EOSINOPHILS % (AUTO) 2 % (0-10); HEMATOCRIT 41 % (35-52); LYMPHOCYTES # (AUTO) 3.4 10^3/uL (1.0-4.0); LYMPHOCYTES % (AUTO) 42 % (12-44); MEAN CORPUSCULAR HEMOGLOBIN 36 pg (25-34); MEAN CORPUSCULAR HGB CONC 34 g/dL (32-36); MEAN CORPUSCULAR VOLUME 105 fL (80-99); MEAN PLATELET VOLUME 9.6 fL (9.0-12.2); MONOCYTES # (AUTO) 0.8 10^3/uL (0.0-1.0); MONOCYTES % (AUTO) 9 % (0-12); NEUTROPHILS # (AUTO) 3.8 10^3/uL (1.8-7.8); NEUTROPHILS % (AUTO) 47 % (42-75); PLATELET COUNT 215 10^3/uL (130-400); WHITE BLOOD COUNT 8.1 10^3/uL (4.3-11.0)
[2022-10-12] MEDS ORDERED: ONDANSETRON 4 MG/2 ML (SDV) Z0FRAN ONE (16:18)
--- NOTE | 2022-10-12 16:36 | Diagnostic Imaging Report ---
EXAMINATION: Chest 1 view HISTORY: chest pain COMPARISON: 09/16/2020 FINDINGS: The lungs are clear without edema or pneumonia. No pleural effusion or pneumothorax. Heart size is normal. IMPRESSION: 1. Clear lungs. Dictated by: Dictated on workstation # [id number]
[2022-10-12 16:40] LABS: PROTHROMBIN TIME PATIENT 13.4 SEC (12.2-14.7)
[2022-10-12 16:47] LABS: ALKALINE PHOSPHATASE 69 U/L (40-136); BILIRUBIN,TOTAL 0.2 MG/DL (0.1-1.0); BUN/CREATININE RATIO 14; CALCIUM 9.5 MG/DL (8.5-10.1); CARBON DIOXIDE 23 MMOL/L (21-32); CHLORIDE 103 MMOL/L (98-107); CREATININE SERUM 0.83 MG/DL (0.60-1.30); GFR ESTIMATED 89; GLUCOSE 117 MG/DL (70-105); MAGNESIUM 1.9 MG/DL (1.6-2.4); POTASSIUM 3.3 MMOL/L (3.6-5.0); SODIUM 140 MMOL/L (135-145)
[2022-10-12 16:48] LABS: ALANINE AMINOTRANSFERASE 27 U/L (0-55); ALBUMIN 4.8 GM/DL (3.2-4.5); LIPASE 21 U/L (8-78)
[2022-10-12 17:07] VITALS: BP 132/64
[2022-10-12] MEDS ORDERED: PANT40TA52 PO (17:08)
== END 2022-10-12 17:10 | disposition home or self-care (01) ==
LOC: EDUNIT# 16:00 → ER FS 16:03
DX: I25.10 Atherosclerotic heart disease of native coronary artery without angina pectoris (principal); F17.210 Nicotine dependence, cigarettes, uncomplicated
CPT/HCPCS: 36415; 71045; 80053; 83690; 83735; 83874; 83880; 84484; 85025; 85610; 85730; 93005; 93041